=== PATIENT | male | born 1945 | race Caucasian/White ===

== ENCOUNTER → 2018-02-16 08:20 | Outpatient (CLI) | payer MEDICARE, SELFPAY ==
--- NOTE | 2018-02-16 08:27 | XR_ITS ---
XR shoulder LT min 2V HISTORY: ITS.REASON: LT SHOULDER PAIN ORDERING PHYSICIAN: Malissa Kilgore PATIENT AGE: 72 years Comparison: 04/10/2017 FINDINGS: Hypertrophic changes are present at the acromioclavicular joint with spurring along the undersurface of the distal clavicle and acromion which could impinge upon the supraspinatus tendon. A small focus of calcification is present just inferior to the lateral aspect of the acromium or superior than expected for calcific tendinitis and could be due to prior trauma. Mild osteoarthritic changes are present at the glenohumeral joint. No fracture or dislocation. No lytic or blastic change. Small area of sclerosis involves the lateral aspect of the scapula inferior to the glenoid and may be due to a bone island. IMPRESSION: Osteoarthritic change of the acromioclavicular and glenohumeral joint. Overall not significantly changed
== END ==
PROVIDERS: PCP Internal Medicine Adolescent Medicine; Visit Provider Nurse Practitioner Family
DX: M25.512 Pain in left shoulder (principal)
CPT/HCPCS: 73030

== ENCOUNTER → 2018-02-19 08:35 | Outpatient (POV) | payer MEDICARE, SELFPAY | PROVIDERS: Family Provider Nurse Practitioner Family; PCP Internal Medicine Adolescent Medicine; Visit Provider Dermatology | DX: Z00.00 Encounter for general adult medical examination without abnormal findings (principal) ==

== ENCOUNTER → 2018-03-20 07:47 | Outpatient (CLI) | payer MEDICARE, SELFPAY ==
--- NOTE | 2018-03-20 07:51 | MR_ITS ---
MR lumbar spine wo con Ordering Physician: Malissa Kilgore Patient Age: 72 years: Male HISTORY: ITS.REASON: LOW BACK PAIN Low back pain. Patient is sensitive to touch left side of mid back this extends anteriorly. Tingling sensation. TECHNIQUE: Sagittal STIR, T1, T2, axial T1 and T2. On 1.5T Siemens wide bore MRI. 3-D MR myelogram image set obtained & performed on MRI workstation. Additional sagittal thin section T2 weighted dataset obtained from this latter acquisition as well (---76 CPT) COMPARISON :No lumbar studies only a MRI T-spine 2016 available FINDINGS . The lumbar vertebral bodies are intact and the disc spaces are well-maintained overall except for slight narrowing at L5/S1. Overall the lumbar vertebral bodies and disc spaces appear younger than 72 but there is prominent posterior element/ facet hypertrophy particularly at L4/5 L5/S1 L5/S1. Mild disc space narrowing with mild foraminal disc bulge most evident to the right. Prominent facet hypertrophy on right more so than left, the latter features indents lateral thecal sac bilaterally, most notable on right. Together features yield bilateral recess and foraminal encroachment most evident to the right L4/5. Only minor disc bulge most evident towards foramen.. However there is very prominent, exuberant posterior element hypertrophy. Prominent facet hypertrophy but also generous ligamentum flavum hypertrophy.. This yields fairly pronounced central canal stenosis.; As well as Moderate recess & foraminal encroachment L3/4 disc intact with only mild disc slightly generous disc contour towards right foramen. More so than left. Mild facet hypertrophy and enlargement. Mild bilateral foraminal encroachment and narrowing. L2/3 we again see the mild foraminal disc bulge pattern with minimal facet hypertrophy . Mild foraminal encroachment and narrowing bilaterally. Unimpressive L1/2 disc intact T12/L1 disc intact T1/12 disc intact. Conus appears satisfactory. 3-D MR myelogram image set shows the tapering the spinal canal at L4/5 reflecting the spinal stenosis at this level.. The facet hypertrophy at L5/S1 also laterally narrows the spinal canal No additional findings are seen at the mid back region to account for the patient's tingling sensations described in history.. Only minimal facet arthropathy and these regions noted otherwise . IMPRESSION... Prominent facet hypertrophy lower L-spine is a primary feature yielding central canal spinal stenosis L4/5 & L5/S1: L4/5. Fairly pronounced canal stenosis mainly due to the prominent, exuberant posterior element hypertrophy. Both facet & ligament flavum hypertrophy markedly narrow the spinal canal;. Also yield moderate bilateral foraminal encroachment. L5/S1. Prominent facet hypertrophy narrows with lateral tapering/indentation of the thecal sac.. Moderate central canal stenosis & foraminal encroachment to the right. Mild foraminal disc bulging also seen at L4/5, L5/S1, as well as L2/3 & L3/4 to the right
== END ==
PROVIDERS: Family Provider Nurse Practitioner Family; PCP Internal Medicine Adolescent Medicine; Visit Provider Nurse Practitioner Family
DX: M54.5 Low back pain (principal)
CPT/HCPCS: 72148; 76376

== ENCOUNTER 2018-03-31 16:17 | Inpatient (IN) ==
--- NOTE | 2018-03-31 16:35 | Emergency Department Note ---
ED Disposition Clinical Impression: Acute ST elevation myocardial infarction (STEMI) of inferior wall, Cardiac arrest with ventricular fibrillation Disposition: Still a Patient Condition on Discharge: Serious Referrals: Senthil Clinton MD [Primary Care Provider] - - Critical Care Critical Care Time: Yes Attestation: On 03/31/18, the high probability of a clinically significant, sudden or life threatening deterioration of the following system(s) required my full and direct attention, intervention and personal management. The time I documented below is in addition to time spent performing reported procedures but includes the following listed in this critical care notation. Total Critical Care Time: 15 Vital system(s) involved:: Circulatory Failure My critical care processes included: Assessment & monitoring of V/S, Initial and Re-exams, Data Review/Interpretation, Coordinating Care, Medication Orders and management, Documentation Medical Decision Making - Jose Roberto Inquiry Pt receiving controlled substance: No - ECG Data Tracing #1 EKG interpreted by Chago Munoz MD: Rhythm: sinus Rate: 95 [place]: normal Ectopy: Premature atrial contractions Conduction: normal ST Segment Changes: Inferior ST elevation, reciprocal lateral depression T Wave Changes: Nonspecific Q Waves: none Consistent with acute inferior OH EKG #2 interpreted by Chago Munoz MD: Rhythm: sinus Persistent changes of acute inferior OH - Physician Consults Physician Consulted: Lazara Time: 16:20 Reason -: Cardiology Eval/Care Comment/Response: Responded to ED for code STEMI Additional Consult: Oz Time: 16:37 Reason -: Admission Comment/Response: Notified of admission to [facility] and need for admit orders. - ADELA Score for STEMI Age of patient: 65-74 years Hx of anginal chest pain: Present Hx of hypertension: Present Hx of diabetes: Present Systolic Blood Pressure: 100 mg Hg or more Heart Rate: Less than 100 beats/min [place] Class: I-No heart failure Weight of patient: 67 kg or more Anterior OH: No Left Bundle Branch Block: Absent Delay to treatment after attack: Less than 4 hrs Stemi Risk Score: 6 Medical Decision Narrative: STEMI was called immediately when EKG performed. Dr. Haile presented to the emergency department immediately. The patient had a ventricular fibrillation cardiac arrest within minutes of STEMI alert. Chest stump performed. Defibrillated 2. Resolution of spontaneous circulation. Repeat EKG shows persistent inferior ST elevation. 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 General Adult HPI - General Stated complaint: chest pain Time Seen by Provider: 03/31/18 16:19 - History of Present Illness HPI narrative: Complains of chest discomfort and left arm pain that began about 60-90 minutes ago. Denies shortness of breath. Denies nausea or diaphoresis. Took one nitroglycerin which did not seem to help. Currently rates his pain 4/10. Has a prior history of coronary artery disease with coronary bypass grafting and stent placement. [employer] is Dr. Colunga. - Related Data Allergies Allergy/AdvReac Type Severity Reaction Status Date / Time No Known Allergies Allergy Unverified 07/08/17 14:[address] [facility] History I have reviewed the patient's past medical history: Yes ROS Obtained: Yes Systems reviewed as appropriate & no additional complaints - Cardiovascular Cardiovascular: Reports chest pain, Denies diaphoresis - Respiratory Respiratory: No dyspnea - Gastrointestinal Gastrointestingal: Denies: nausea, vomiting Physical Exam - General General appearance: alert, in no apparent distress - Head Head exam: atraumatic, normocephalic, normal inspection - Eye Eye exam: Present: normal appearance, PERRL, EOMI - ENT ENT exam: Present: mucous membranes moist - Neck Neck exam: Present: normal inspection, full ROM, trachea midline. Absent: meningismus, lymphadenopathy - Chest Chest inspection: Present: normal inspection, symmetric chest wall rise. Absent: tenderness - Respiratory Respiratory exam: Present: normal lung sounds bilaterally. Absent: respiratory distress - Cardiovascular Cardiovascular exam: Present: regular rate, normal rhythm. Absent: JVD - Abdominal Exam Abdominal exam: Present: soft, normal bowel sounds. Absent: distention, tenderness, guarding - Extremities Exam Extremities exam: Present: normal inspection, full ROM, normal capillary refill. Absent: calf tenderness - Neurological Exam Neurological exam: Present: alert, oriented X3 - Psychiatric Psychiatric exam: Present: normal affect, normal mood - Skin Skin exam: Present: warm, dry, intact, normal color
[2018-03-31 17:32] LABS: Anion Gap 17.7 mEq/L (5-15); Basophils # 0.1 K/mm3 (0-0.2); Calcium 9.3 mg/dL (8.5-10.1); Monocytes # 0.8 K/mm3 (0.1-1.0); Neutrophils # 5.4 K/mm3 (1.8-7.8); Neutrophils % 37.5 % (37.0-80.0); Potassium 3.7 mmoL/L (3.5-5.1); Red Cell Distribution Width 13.4 % (11.5-17.5)
[2018-03-31 17:36] LABS: Basophils % 0.5 % (0.1-2.0); Eosinophils # 0.1 K/mm3 (0.0-0.4); Eosinophils % 0.9 % (0.1-12.0); Hematocrit 52.8 % (42.0-52.0); Lymphocytes # 7.9 K/mm3 (0.7-4.5); Lymphocytes % 55.2 K/mm3 (10-50); Mean Corpuscular HGB Conc 33.9 g/dL (31.8-35.4); Mean Corpuscular Volume 94.4 fl (80-94); Monocytes % 5.9 % (1.7-9.3); Platelet Count 248 K/mm3 (142-424); Red Blood Count 5.59 M/mm3 (4.60-6.20); White Blood Count 14.3 K/mm3 (4.8-10.8)
[2018-03-31 17:38] LABS: Hemoglobin 17.9 g/dL (14.1-18.0)
[2018-03-31 17:59] LABS: Eosinophils % 2 % (0-3); Lymphocytes % 15 % (10-50); Monocytes % 1 % (2-9); Neutrophils % 47 % (42-76); Total Cells Counted 100
[2018-03-31 18:00] LABS: RBC Morphology Normal
[2018-04-01 00:49] LABS: Anion Gap 18.5 mEq/L (5-15); Potassium 3.5 mmoL/L (3.5-5.1)
[2018-04-01 00:58] LABS: Calcium 8.4 mg/dL (8.5-10.1)
[2018-04-01 06:15] LABS: Basophils % 0.1 % (0.1-2.0); Eosinophils # 0.1 K/mm3 (0.0-0.4); Eosinophils % 0.5 % (0.1-12.0); Lymphocytes # 1.7 K/mm3 (0.7-4.5); Lymphocytes % 11.2 K/mm3 (10-50); Mean Corpuscular HGB Conc 33.2 g/dL (31.8-35.4); Mean Corpuscular Hemoglobin 31.8 pg (27.0-31.2); Mean Corpuscular Volume 95.8 fl (80-94); Mean Platelet Volume 7.9 fl (7.4-10.4); Monocytes # 0.9 K/mm3 (0.1-1.0); Monocytes % 5.8 % (1.7-9.3); Neutrophils # 12.6 K/mm3 (1.8-7.8); Neutrophils % 82.4 % (37.0-80.0); Platelet Count 236 K/mm3 (142-424); Red Blood Count 5.05 M/mm3 (4.60-6.20); Red Cell Distribution Width 13.6 % (11.5-17.5); White Blood Count 15.2 K/mm3 (4.8-10.8)
[2018-04-01 06:42] LABS: Hematocrit 48.5 % (42.0-52.0); Hemoglobin 16.1 g/dL (14.1-18.0)
[2018-04-01 07:10] LABS: Albumin Level 3.9 gm/dL (3.4-5.0); Albumin/Globulin Ratio 1.3 (1.1-1.8); Bilirubin,Total 0.9 mg/dL (0.2-1.0); Calcium 8.5 mg/dL (8.5-10.1); Globulin 3.1 gm/dl (1.3-3.2)
--- NOTE | 2018-04-01 07:27 | Pharmacy Consult Notes ---
[facility] Pharmacy VTE Monitoring - Patient Demographics Admission date: 03/31/18 Report Date: 04/01/18 Time: 07:27 Allergies/Adverse Reactions: Patient Allergies No Known Allergies Allergy (Verified 03/31/18 19:09) Height: 1.78 m Weight: 100.017 kg Patient Problems: Current Active Problems Acute ST elevation myocardial infarction (STEMI) of inferior wall (Acute) Cardiac arrest with ventricular fibrillation (Acute) - VTE Risk Labs: VTE Related Lab Results Hgb 16.1 g/dL (14.1-18.0) D 04/01/18 06:00 Hct 48.5 % (42.0-52.0) 04/01/18 06:00 Plt Count 236 K/mm3 (142-424) 04/01/18 06:00 BUN 7 mg/dL (7-18) 04/01/18 06:00 Creatinine 0.72 mg/dL (0.70-1.30) 04/01/18 06:00 Estimated Creat Clear 92 mL/min (0-300) 04/01/18 06:00 Was VTE Risk Assessment Performed: Yes VTE Score: 5 VTE Risk Level: Low Risk - Prophylaxis VTE Prophylaxis Ordered?: Yes Types of VTE Prophylaxis: TEDS Knee High, Pharmacological Location of Applied Device: Bilateral Lower Extremeties Pharmacologic Type: Other (BRILINTA) - VTE Diagnosis Confirmed Treatment or plan recommended: Continue Current Treatment
--- NOTE | 2018-04-01 08:24 | History & Physical Report ---
*Admission Date: 03/31/18 *Chief complaint: STEMI with ventricular fibrillation and cardiac arrest *History of present illness: 72-year-old white male with history of coronary disease, status post CABG greater than 10 years ago four-vessel, was mowing his yard yesterday and had a feeling of impending doom, left arm pain, chest pressure and diaphoresis. Reported to the emergency department. During the process of workup after labs were done the patient had a cardiac arrest with ventricular fibrillation. He was quickly defibrillated and taken to cardiac catheterization after initial laboratory studies showed elevated troponins with EKG showing ST changes consistent with STEMI. He was subjected to left heart cath with successful deployment of 4 stents. Official report pending, and transferred to the hip down unit. Overnight he initially did well but around 130 this morning had another episode of ventricular fibrillation which obviously required defibrillation. Cardiology was consulted by phone and recommended the initiation of oral amiodarone therapy which was given. Currently patient feels well except for some chest pain from cardiac compressions and defibrillation paddles. [facility] History I have reviewed the patient's past medical history: Yes Medical History: Reports:: Arrhythmia, Cancer (Melanoma - left soliz), Coronary Artery Disease, Deep Vein Thrombosis (2000 - leg), Diabetes Mellitus Type 2, Hyperlipidemia, Hypertension, Myocardial Infarction Denies:: Diabetes Mellitus Type 1, Internal Pacemaker Other Medical History: Reports: Arthritis (OA), Cataracts, Sinus Problems (Seasonal Allergies) Laterality Cases: Left: Total Knee Replacement, Right: Total Hip Replacement Other Surgeries: Yes: CABG, Cardiac Catheterization, Cardiac Surgery, Coronary Stent, Open Heart Surgery. No: Pacemaker Amputation: No Fractures: No - *Social History Educational Level: Completed GED/General Educational Development Alcohol Intake: current Alcohol Intake Frequency:: other Occupational Status: retired Housing: house Household Members: spouse - Psychiatric History Expresses thoughts of harming self/others: None Suicide Plan Description: No Plan Review of Systems - Review of Systems Review of systems:: pertinent systems reviewed and negative unless documented below - Constitutional Denies anorexia, Denies body ache(s), Denies chills - Eyes Denies blind spots, Denies blurry vision - ENT Denies abnormal hearing, Denies bleeding gums - *Cardiovascular Reports chest pain, Reports chest pain at rest, Reports chest pain with activity, Reports excessive sweating, Reports shortness of breath when lying down, Denies irregular heart rhythm, Denies leg swelling - *Respiratory Denies change in phlegm color, Denies chest congestion - *Gastrointestinal Denies abdominal pain - *Genitourinary Denies difficulty urinating - *Musculoskeletal Denies abnormal walking Meds Home Medications Medication Instructions Recorded Confirmed Type Amlodipine Besylate [Norvasc 10mg 10 mg PO DAILY 03/31/18 03/31/18 History tablet] Aspirin [Low Dose Aspirin EC] 81 mg PO DAILY 03/31/18 03/31/18 History Atorvastatin Calcium [Atorvastatin 40 mg PO HS 03/31/18 03/31/18 History 40mg Tab] Bisoprolol Fumarate [Bisoprolol 5 mg PO DAILY 03/31/18 03/31/18 History 5mg Tablet] Empagliflozin [Jardiance] 10 mg PO DAILY 03/31/18 03/31/18 History Glimepiride 4 mg PO DAILY 03/31/18 03/31/18 History Losartan Potassium 100 mg PO DAILY 03/31/18 03/31/18 History Metformin HCl 1,000 mg PO BID 03/31/18 03/31/18 History Omeprazole [Omeprazole 20mg 20 mg PO DAILY 03/31/18 03/31/18 History Capsule] Allergies Allergy/AdvReac Type Severity Reaction Status Date / Time No Known Allergies Allergy Verified 03/31/18 19:09 Exam Vital signs and Labs for Last 24 Hours: Temp Pulse Resp BP Pulse Ox 98.5 F 73 15 135/87 94 L 04/01/18 07:43 04/01/18 08:00 04/01/18 08:00 04/01/18 07:30 04/01/18 08:00 Laboratory Results - last 24 hr 03/31/18 16:25: WBC 14.3 H, RBC 5.59, Hgb 17.9, Hct 52.8 H, MCV 94.4 H, MCH 32.0 H, MCHC 33.9, RDW 13.4, Plt Count 248, MPV 9.0, Neut % (Auto) 37.5, Lymph % (Auto) 55.2 H, Eagle % (Auto) 5.9, Eos % (Auto) 0.9, Baso % (Auto) 0.5, Neut # (Auto) 5.4, Lymph # (Auto) 7.9 H, Eagle # (Auto) 0.8, Eos # (Auto) 0.1, Baso # (Auto) 0.1, Total Counted 100, Neutrophils % (Manual) 47, Lymphocytes % (Manual) 15, Atypical Lymphs % 35.0, Monocytes % (Manual) 1 L, Eosinophils % (Manual) 2, Platelet Estimate Normal, RBC Morphology Normal 03/31/18 16:25: Sodium 144, Potassium 3.7, Chloride 106, Carbon Dioxide 24, Anion Gap 17.7 H, BUN 9, Creatinine 1.06, Estimated Creat Clear 78, Estimated GFR 68, Est GFR ( Amer) 83, Glucose 266 H, Calcium 9.3, Troponin I 0.06 03/31/18 16:40: Activated Clotting Time 309 H* 03/31/18 17:35: Activated Clotting Time > 400 H* D 03/31/18 20:08: POC Glucose 202 H 04/01/18 00:04: POC Glucose 194 H 04/01/18 00:20: Magnesium 1.9 04/01/18 00:20: Sodium 144, Potassium 3.5, Chloride 108 H, Carbon Dioxide 21, Anion Gap 18.5 H, BUN 7, Creatinine 0.87, Estimated Creat Clear 94, Estimated GFR 86, Est GFR ( Amer) 104 D, Glucose 222 H, Calcium 8.4 L 04/01/18 06:00: WBC 15.2 H, RBC 5.05, Hgb 16.1 D, Hct 48.5, MCV 95.8 H, MCH 31.8 H, MCHC 33.2, RDW 13.6, Plt Count 236, MPV 7.9, Neut % (Auto) 82.4 H, Lymph % (Auto) 11.2, Eagle % (Auto) 5.8, Eos % (Auto) 0.5, Baso % (Auto) 0.1, Neut # (Auto) 12.6 H, Lymph # (Auto) 1.7, Eagle # (Auto) 0.9, Eos # (Auto) 0.1, Baso # (Auto) 0.0 04/01/18 06:00: Sodium 144, Potassium 4.0, Chloride 107, Carbon Dioxide 22, Anion Gap 19.0 H, BUN 7, Creatinine 0.72, Estimated Creat Clear 92, Estimated GFR 107, Est GFR ( Amer) 129 D, Glucose 227 H, Calcium 8.5, Total Bilirubin 0.9, AST 120 H, ALT 50, Alkaline Phosphatase 65, Total Protein 7.0, Albumin 3.9, Globulin 3.1, Albumin/Globulin Ratio 1.3 04/01/18 06:06: POC Glucose 303 H* I & O for Last 24 hours: Intake & Output 03/29/18 03/30/18 03/31/18 04/01/18 11:59 11:59 11:59 11:59 Intake Total 1240 / 1240 Output Total 2800 / 2800 Balance -1560 / -1560 Weight 220 lb 8 oz Narrative: Patient is awake. Alert. Oropharynx clear. No JVD. Heart rate regular. Lungs are clear, abdomen soft and nontender. No clubbing, cyanosis or edema. No cranial nerve deficits. Able to move all extremities well. Assessment and Plan (1) Coronary atherosclerosis of artery bypass graft Current visit: Yes Status: Acute Category: Medical Code(s): I25.810 - Atherosclerosis of coronary artery bypass graft(s) without angina pectoris Significant disease. Continue cardiology consultation. Patient's EF reportedly fairly well-preserved after heart cath. (2) Acute ST elevation myocardial infarction (STEMI) of inferior wall Current visit: Yes Status: Acute Category: Medical Code(s): I21.19 - ST elevation (STEMI) myocardial infarction involving other coronary artery of inferior wall (3) Cardiac arrest with ventricular fibrillation Current visit: Yes Status: Acute Category: Medical Code(s): I46.9 - Cardiac arrest, cause unspecified; I49.01 - Ventricular fibrillation P.o. loading of amiodarone last night. Continue intensive care monitoring.
[2018-04-01 09:15] LABS: Lymphocytes % 8 % (10-50); Monocytes % 3 % (2-9); Neutrophils % 85 % (42-76); Total Cells Counted 100
[2018-04-01 09:16] LABS: RBC Morphology Normal
--- NOTE | 2018-04-01 09:30 | Consult Report ---
History of Present Illness Consult date: 03/31/18 Requesting physician: Senthil Clinton Consult reason: chest pain Chief complaint: chest pain/pressure Additional Medical History:: 1. Diabetes mellitus, type II, treated for 20 years 2. Hypertension 3. Hyperlipidemia 4. History of one knee and 2 hip replacements 5. History of melanoma of the soliz status post treatment with surgery only. 6. History of inguinal hernia repair 7. Coronary artery disease A. History of MO, 2004 B. History of 3 vessel CABG (SVG to RCA, SVG to OM1 and OM2), 2004 C. History of RAMESH to LAD, November/2016, Dr. [place] D. STEMI, inferiorly, 03/31/18 with urgent stenting of the vein graft to RCA. Subsequent closure later that evening. E. Recurrent ventricular fibrillation requiring multiple cardioversions, 03/2018 8. Family history of coronary artery disease History of present illness: 72-year-old white male with known coronary artery disease, diabetes mellitus and hypertension was brought to the emergency department after 1 hour of chest discomfort described as a pressure/tightness sensation and the generally not feeling well while riding lawnmower cutting grass. Patient called his when symptoms would not vu, and was transported to the hospital for further evaluation. Patient was quickly diagnosed with an acute ST elevation MO with the STEMI team called promptly. Patient did have V. fib and subsequent cardiac arrest requiring defibrillation while in the ER. He was taken to the cardiac Audio Visual Technician with subsequent stenting of a vein graft but due to "slow flow" down the graft, patient continued to have thrombus form in the vein graft. Patient did have recurrent ventricular fibrillation/torsades overnight that required cardioversion. Patient is now on amiodarone p.o. and rhythm is stable this morning. He relates some chest soreness but overall feels better than yesterday. [facility] History Medical History: Reports:: Arrhythmia, Cancer (Melanoma - left soliz), Coronary Artery Disease, Deep Vein Thrombosis (2000 - leg), Diabetes Mellitus Type 2, Hyperlipidemia, Hypertension, Myocardial Infarction Denies:: Diabetes Mellitus Type 1, Internal Pacemaker Other Medical History: Reports: Arthritis (OA), Cataracts, Sinus Problems (Seasonal Allergies) Laterality Cases: Left: Total Knee Replacement, Right: Total Hip Replacement Other Surgeries: Yes: CABG, Cardiac Catheterization, Cardiac Surgery, Coronary Stent, Open Heart Surgery. No: Pacemaker Amputation: No Fractures: No - *Social History Educational Level: Completed GED/General Educational Development Alcohol Intake: current Alcohol Intake Frequency:: other Occupational Status: retired Housing: house Household Members: spouse - Psychiatric History Expresses thoughts of harming self/others: None Suicide Plan Description: No Plan Meds Home Medications Medication Instructions Recorded Confirmed Type Amlodipine Besylate [Norvasc 10mg 10 mg PO DAILY 03/31/18 03/31/18 History tablet] Aspirin [Low Dose Aspirin EC] 81 mg PO DAILY 03/31/18 03/31/18 History Atorvastatin Calcium [Atorvastatin 40 mg PO HS 03/31/18 03/31/18 History 40mg Tab] Bisoprolol Fumarate [Bisoprolol 5 mg PO DAILY 03/31/18 03/31/18 History 5mg Tablet] Empagliflozin [Jardiance] 10 mg PO DAILY 03/31/18 03/31/18 History Glimepiride 4 mg PO DAILY 03/31/18 03/31/18 History Losartan Potassium 100 mg PO DAILY 03/31/18 03/31/18 History Metformin HCl 1,000 mg PO BID 03/31/18 03/31/18 History Omeprazole [Omeprazole 20mg 20 mg PO DAILY 03/31/18 03/31/18 History Capsule] Allergies Allergy/AdvReac Type Severity Reaction Status Date / Time No Known Allergies Allergy Verified 03/31/18 19:09 Review of Systems - *Cardiovascular Reports chest pain, Reports shortness of breath, Reports shortness of breath with activity - *Respiratory Reports shortness of breath with activity - *Gastrointestinal Denies abdominal pain, Denies heartburn, Denies loose stools - *Genitourinary Denies blood in urine - *Musculoskeletal Reports joint pain - *Neurologic Denies abnormal walking, Denies abnormal hearing Exam Vital signs and Labs for Last 24 Hours: Temp Pulse Resp BP Pulse Ox 98.5 F 84 20 108/60 93 L 04/01/18 07:43 04/01/18 09:00 04/01/18 09:00 04/01/18 09:00 04/01/18 09:00 Laboratory Results - last 24 hr 03/31/18 16:25: WBC 14.3 H, RBC 5.59, Hgb 17.9, Hct 52.8 H, MCV 94.4 H, MCH 32.0 H, MCHC 33.9, RDW 13.4, Plt Count 248, MPV 9.0, Neut % (Auto) 37.5, Lymph % (Auto) 55.2 H, [place] % (Auto) 5.9, Eos % (Auto) 0.9, Baso % (Auto) 0.5, Neut # (Auto) 5.4, Lymph # (Auto) 7.9 H, [place] # (Auto) 0.8, Eos # (Auto) 0.1, Baso # (Auto) 0.1, Total Counted 100, Neutrophils % (Manual) 47, Lymphocytes % (Manual) 15, Atypical Lymphs % 35.0, Monocytes % (Manual) 1 L, Eosinophils % (Manual) 2, Platelet Estimate Normal, RBC Morphology Normal 03/31/18 16:25: Sodium 144, Potassium 3.7, Chloride 106, Carbon Dioxide 24, Anion Gap 17.7 H, BUN 9, Creatinine 1.06, Estimated Creat Clear 78, Estimated GFR 68, Est GFR ( Amer) 83, Glucose 266 H, Calcium 9.3, Troponin I 0.06 03/31/18 16:40: Activated Clotting Time 309 H* 03/31/18 17:35: Activated Clotting Time > 400 H* D 03/31/18 20:08: POC Glucose 202 H 04/01/18 00:04: POC Glucose 194 H 04/01/18 00:20: Magnesium 1.9 04/01/18 00:20: Sodium 144, Potassium 3.5, Chloride 108 H, Carbon Dioxide 21, Anion Gap 18.5 H, BUN 7, Creatinine 0.87, Estimated Creat Clear 94, Estimated GFR 86, Est GFR ( Amer) 104 D, Glucose 222 H, Calcium 8.4 L 04/01/18 06:00: WBC 15.2 H, RBC 5.05, Hgb 16.1 D, Hct 48.5, MCV 95.8 H, MCH 31.8 H, MCHC 33.2, RDW 13.6, Plt Count 236, MPV 7.9, Neut % (Auto) 82.4 H, Lymph % (Auto) 11.2, [place] % (Auto) 5.8, Eos % (Auto) 0.5, Baso % (Auto) 0.1, Neut # (Auto) 12.6 H, Lymph # (Auto) 1.7, [place] # (Auto) 0.9, Eos # (Auto) 0.1, Baso # (Auto) 0.0, Total Counted 100, Neutrophils % (Manual) 85 H, Band Neutrophils % 3.0, Lymphocytes % (Manual) 8 L, Atypical Lymphs % 1.0, Monocytes % (Manual) 3, Platelet Estimate Normal, RBC Morphology Normal 04/01/18 06:00: Sodium 144, Potassium 4.0, Chloride 107, Carbon Dioxide 22, Anion Gap 19.0 H, BUN 7, Creatinine 0.72, Estimated Creat Clear 92, Estimated GFR 107, Est GFR ( Amer) 129 D, Glucose 227 H, Calcium 8.5, Total Bilirubin 0.9, AST 120 H, ALT 50, Alkaline Phosphatase 65, Total Protein 7.0, Albumin 3.9, Globulin 3.1, Albumin/Globulin Ratio 1.3 04/01/18 06:06: POC Glucose 303 H* I & O for Last 24 hours: Intake & Output 03/29/18 03/30/18 03/31/18 04/01/18 11:59 11:59 11:59 11:59 Intake Total 1240 / 1240 Output Total 2800 / 2800 Balance -1560 / -1560 Weight 220 lb 8 oz - *Routine Neck Exam Present: supple. Absent: JVD, carotid bruit - *Routine Respiratory Exam Present: CTA bilaterally. Absent: accessory muscle use, rales, rhonchi, wheezes - *Routine Cardiovascular Exam Present: RRR. Absent: murmur, gallop, rubs - *Routine Abdominal Exam Present: soft. Absent: tenderness, distended, guarding - *Routine Extremities Exam Absent: edema, calf tenderness - *Routine Skin Exam Present: warm. Absent: cyanosis - *Routine Neurological Exam Present: alert, oriented X3, moving all extremities Assessment and Plan (1) Coronary atherosclerosis of artery bypass graft Current visit: Yes Status: Acute Category: Medical Code(s): I25.810 - Atherosclerosis of coronary artery bypass graft(s) without angina pectoris (2) Acute ST elevation myocardial infarction (STEMI) of inferior wall Current visit: Yes Status: Acute Category: Medical Code(s): I21.19 - ST elevation (STEMI) myocardial infarction involving other coronary artery of inferior wall (3) Cardiac arrest with ventricular fibrillation Current visit: Yes Status: Acute Category: Medical Code(s): I46.9 - Cardiac arrest, cause unspecified; I49.01 - Ventricular fibrillation (4) Diabetes mellitus Current visit: Yes Status: Acute Category: Medical Code(s): E11.9 - Type 2 diabetes mellitus without complications (5) Hypertension Current visit: Yes Status: Acute Category: Medical Code(s): I10 - Essential (primary) hypertension (6) Hyperlipidemia associated with type 2 diabetes mellitus Current visit: Yes Status: Acute Category: Medical Code(s): E11.69 - Type 2 diabetes mellitus with other specified complication; E78.5 - Hyperlipidemia, unspecified - Assessment and plan all Dx Assessment and Plan for all problems:: 1. Continue loading patient with amiodarone 400 mg twice daily for 1 week and then reduce to 200 mg twice daily. 2. Continue DAPT 3. Will check echo on 04/02/2018 and continue to monitor with consideration for AICD.
--- NOTE | 2018-04-01 12:01 | Progress Note ---
Subjective Date: 04/01/18 Time: 11:00 Principal diagnosis: STEMI Interval history: 72-year-old white male in bed in no acute distress. States he is feeling better. Denies any chest pain or shortness of breath. Some chest soreness related. Dr. Haile discussed the results of the cardiac cath and the resultant closure of the saphenous vein graft resulting in the ventricular fibrillation last evening and subsequent need for amiodarone along with consideration of ICD in the future. Questions from the patient, his and his son were answered. Exam Vital signs and Labs for Last 24 Hours: Temp Pulse Resp BP Pulse Ox 98.5 F 74 17 128/72 94 L 04/01/18 07:43 04/01/18 11:00 04/01/18 11:00 04/01/18 11:00 04/01/18 11:00 Laboratory Results - last 24 hr 03/31/18 16:25: WBC 14.3 H, RBC 5.59, Hgb 17.9, Hct 52.8 H, MCV 94.4 H, MCH 32.0 H, MCHC 33.9, RDW 13.4, Plt Count 248, MPV 9.0, Neut % (Auto) 37.5, Lymph % (Auto) 55.2 H, [place] % (Auto) 5.9, Eos % (Auto) 0.9, Baso % (Auto) 0.5, Neut # (Auto) 5.4, Lymph # (Auto) 7.9 H, [place] # (Auto) 0.8, Eos # (Auto) 0.1, Baso # (Auto) 0.1, Total Counted 100, Neutrophils % (Manual) 47, Lymphocytes % (Manual) 15, Atypical Lymphs % 35.0, Monocytes % (Manual) 1 L, Eosinophils % (Manual) 2, Platelet Estimate Normal, RBC Morphology Normal 03/31/18 16:25: Sodium 144, Potassium 3.7, Chloride 106, Carbon Dioxide 24, Anion Gap 17.7 H, BUN 9, Creatinine 1.06, Estimated Creat Clear 78, Estimated GFR 68, Est GFR ( Amer) 83, Glucose 266 H, Calcium 9.3, Troponin I 0.06 03/31/18 16:40: Activated Clotting Time 309 H* 03/31/18 17:35: Activated Clotting Time > 400 H* D 03/31/18 20:08: POC Glucose 202 H 04/01/18 00:04: POC Glucose 194 H 04/01/18 00:20: Magnesium 1.9 04/01/18 00:20: Sodium 144, Potassium 3.5, Chloride 108 H, Carbon Dioxide 21, Anion Gap 18.5 H, BUN 7, Creatinine 0.87, Estimated Creat Clear 94, Estimated GFR 86, Est GFR ( Amer) 104 D, Glucose 222 H, Calcium 8.4 L 04/01/18 06:00: WBC 15.2 H, RBC 5.05, Hgb 16.1 D, Hct 48.5, MCV 95.8 H, MCH 31.8 H, MCHC 33.2, RDW 13.6, Plt Count 236, MPV 7.9, Neut % (Auto) 82.4 H, Lymph % (Auto) 11.2, [place] % (Auto) 5.8, Eos % (Auto) 0.5, Baso % (Auto) 0.1, Neut # (Auto) 12.6 H, Lymph # (Auto) 1.7, [place] # (Auto) 0.9, Eos # (Auto) 0.1, Baso # (Auto) 0.0, Total Counted 100, Neutrophils % (Manual) 85 H, Band Neutrophils % 3.0, Lymphocytes % (Manual) 8 L, Atypical Lymphs % 1.0, Monocytes % (Manual) 3, Platelet Estimate Normal, RBC Morphology Normal 04/01/18 06:00: Sodium 144, Potassium 4.0, Chloride 107, Carbon Dioxide 22, Anion Gap 19.0 H, BUN 7, Creatinine 0.72, Estimated Creat Clear 92, Estimated GFR 107, Est GFR ( Amer) 129 D, Glucose 227 H, Calcium 8.5, Total Bilirubin 0.9, AST 120 H, ALT 50, Alkaline Phosphatase 65, Total Protein 7.0, Albumin 3.9, Globulin 3.1, Albumin/Globulin Ratio 1.3 04/01/18 06:06: POC Glucose 303 H* 04/01/18 10:47: POC Glucose 176 H I & O for Last 24 hours: Intake & Output 03/29/18 03/30/18 03/31/18 04/01/18 11:59 11:59 11:59 11:59 Intake Total 1240 / 1240 Output Total 2800 / 2800 Balance -1560 / -1560 Weight 220 lb 8 oz - *Routine Respiratory Exam Present: CTA bilaterally. Absent: accessory muscle use, rales, rhonchi, wheezes - *Routine Cardiovascular Exam Present: RRR. Absent: murmur, gallop, rubs - *Routine Extremities Exam Absent: edema, calf tenderness Progress Note: A&P (1) Coronary atherosclerosis of artery bypass graft Status: Acute Current Visit: Yes (2) Acute ST elevation myocardial infarction (STEMI) of inferior wall Status: Acute Current Visit: Yes (3) Cardiac arrest with ventricular fibrillation Status: Acute Current Visit: Yes (4) Diabetes mellitus Status: Acute Current Visit: Yes (5) Hypertension Status: Acute Current Visit: Yes (6) Hyperlipidemia associated with type 2 diabetes mellitus Status: Acute Current Visit: Yes Assessment and Plan for All Diagnoses:: Continue current medical therapy. Plan to perform an echocardiogram tomorrow to evaluate left ventricular ejection fraction. Would like to keep the patient here until Friday morning before considering discharge home. Patient will need cardiac rehab and a full 6 weeks of recovery.
--- NOTE | 2018-04-02 07:52 | Progress Note ---
Subjective Date: 04/02/18 Time: 07:49 Principal diagnosis: STEMI Interval history: 72-year-old white male in bed no acute distress. Telemetry shows no evidence of ventricular fibrillation overnight. Patient relates some chest soreness with deep breathing. Exam Vital signs and Labs for Last 24 Hours: Temp Pulse Resp BP Pulse Ox 97.9 F 61 15 150/77 97 04/02/18 06:22 04/02/18 07:00 04/02/18 07:00 04/02/18 07:00 04/02/18 07:00 Laboratory Results - last 24 hr 04/01/18 06:00: Total Counted 100, Neutrophils % (Manual) 85 H, Band Neutrophils % 3.0, Lymphocytes % (Manual) 8 L, Atypical Lymphs % 1.0, Monocytes % (Manual) 3, Platelet Estimate Normal, RBC Morphology Normal 04/01/18 10:47: POC Glucose 176 H 04/01/18 16:49: POC Glucose 164 H 04/01/18 20:38: POC Glucose 298 H 04/02/18 06:09: POC Glucose 163 H I & O for Last 24 hours: Intake & Output 03/30/18 03/31/18 04/01/18 04/02/18 11:59 11:59 11:59 11:59 Intake Total 1240 / 1240 2156 / 2156 Output Total 2800 / 2800 1550 / 1550 Balance -1560 / -1560 606 / 606 Weight 220 lb 8 oz 217 lb 8 oz - *Routine Neck Exam Present: supple. Absent: JVD, carotid bruit - *Routine Respiratory Exam Present: CTA bilaterally. Absent: accessory muscle use, rales, rhonchi, wheezes - *Routine Cardiovascular Exam Present: RRR. Absent: murmur, gallop, rubs - *Routine Extremities Exam Absent: edema, calf tenderness Progress Note: A&P (1) Coronary atherosclerosis of artery bypass graft Status: Acute Current Visit: Yes (2) Acute ST elevation myocardial infarction (STEMI) of inferior wall Status: Acute Current Visit: Yes (3) Cardiac arrest with ventricular fibrillation Status: Acute Current Visit: Yes (4) Diabetes mellitus Status: Acute Current Visit: Yes (5) Hypertension Status: Acute Current Visit: Yes (6) Hyperlipidemia associated with type 2 diabetes mellitus Status: Acute Current Visit: Yes Assessment and Plan for All Diagnoses:: 1. Obtain an echocardiogram today to evaluate left ventricular size and function along with evaluation of pericardial sac for pericardial effusion. No appreciable rub noted on exam. 2. We will try to increase ARB due to elevated blood pressure today. 3. Anticipate discharge home tomorrow.
--- NOTE | 2018-04-02 08:19 | Progress Note ---
Internal Medicine - PN: Subj *Date: 04/02/18 *Time: 07:45 Interval history: Patient has not had any further chest pain. Telemetry reviewed and no further V. Fib though the night. Alert and oriented x3. Rate and rhythm regular, no murmur. Lung sounds clear and equal. No edema. No JVD. Abdomen soft and nontender. Exam Vital signs and Labs for Last 24 Hours: Temp Pulse Resp BP Pulse Ox 99.1 F 70 20 140/81 94 L 04/02/18 08:00 04/02/18 08:00 04/02/18 08:00 04/02/18 08:00 04/02/18 08:00 Laboratory Results - last 24 hr 04/01/18 06:00: Total Counted 100, Neutrophils % (Manual) 85 H, Band Neutrophils % 3.0, Lymphocytes % (Manual) 8 L, Atypical Lymphs % 1.0, Monocytes % (Manual) 3, Platelet Estimate Normal, RBC Morphology Normal 04/01/18 10:47: POC Glucose 176 H 04/01/18 16:49: POC Glucose 164 H 04/01/18 20:38: POC Glucose 298 H 04/02/18 06:09: POC Glucose 163 H I & O for Last 24 hours: Intake & Output 03/30/18 03/31/18 04/01/18 04/02/18 11:59 11:59 11:59 11:59 Intake Total 1240 / 1240 2396 / 2396 Output Total 2800 / 2800 1550 / 1550 Balance -1560 / -1560 846 / 846 Weight 220 lb 8 oz 217 lb 8 oz Assessment and Plan (1) Coronary atherosclerosis of artery bypass graft Current visit: Yes Status: Acute Category: Medical Code(s): I25.810 - Atherosclerosis of coronary artery bypass graft(s) without angina pectoris (2) Acute ST elevation myocardial infarction (STEMI) of inferior wall Current visit: Yes Status: Acute Category: Medical Code(s): I21.19 - ST elevation (STEMI) myocardial infarction involving other coronary artery of inferior wall (3) Cardiac arrest with ventricular fibrillation Current visit: Yes Status: Acute Category: Medical Code(s): I46.9 - Cardiac arrest, cause unspecified; I49.01 - Ventricular fibrillation (4) Diabetes mellitus Current visit: Yes Status: Acute Category: Medical Code(s): E11.9 - Type 2 diabetes mellitus without complications (5) Hypertension Current visit: Yes Status: Acute Category: Medical Code(s): I10 - Essential (primary) hypertension (6) Hyperlipidemia associated with type 2 diabetes mellitus Current visit: Yes Status: Acute Category: Medical Code(s): E11.69 - Type 2 diabetes mellitus with other specified complication; E78.5 - Hyperlipidemia, unspecified - Assessment and plan all Dx Assessment and Plan for all problems:: He did well through the night. No changes today. Will continue to monitor overnight. If no further episodes of V. Fib will likely d/c in the am
--- NOTE | 2018-04-02 16:18 | Cardiology Report ---
PROCEDURE: 2-D M-mode and color Doppler study INDICATIONS FOR THE TEST: Chest pain+ COPD Heart Murmur Tobacco Smokingex Palpitations Fatigue+ Syncope Edema Hypertension+Diabetes Mellitus+ Rheumatic Fever SOB HOPKINS Obesity+Hyperlipidemia+ Family History HD+ Additional History pain lt arm, STEMI, hx of CABG, CAD PATIENT INFORMATION HEIGHT: 70 WEIGHT: 217 GENDER: Male B/P: 140/81 2-D/M-MODE INTERPRETATION: 2-D MEASUREMENTS OBSERVED VALUES IN CMS Right Ventricular Dimension (RVDd) 2.7 Interventricular Septum (Thickness)(IVsd) 1.1 Left Ventricular Internal Dimensions(LVIDd) 3.2 Left Ventricular Posterior Wall (Thickness)(LVPWd) 1.1 Aortic Root 3.1 Aortic Cusp Separation 1.8 Left Atrial Dimensions (LAD) 3.3 2D 1. Technically difficult study because of the patient's factor and poor acoustic windows, repeat study with Definity contrast is recommended. 2. Left atrium is qualitatively mildly enlarged, left ventricle is normal size, mild concentric left ventricular hypertrophy, visually estimated ejection fraction approximately 40%, there is marked hypokinesis involving the inferior, inferobasal and posterobasal wall. Endocardial surfaces are poorly visualized. 3. The aortic valve is minimally thickened and fibrosed. Leaflet continue to display mobility. 4. The mitral valve has mitral calcification, leaflets are minimally thickened. 5. The tricuspid valve is grossly normal. 6. The pulmonic valve is poorly visualized. 7. No significant pericardial effusion noted. DOPPLER INTERROGATION: Doppler interrogation of the aortic, mitral and tricuspid valvular presence of mild mitral and tricuspid regurgitation, tricuspid regurgitation jet velocity is insufficient for calculation of the right ventricular systolic pressure, grade 1 diastolic dysfunction seen with tissue Doppler evidence of raised left atrial pressure. CONCLUSION: 1. Technically difficult study because of the patient's factor and poor acoustic windows, repeat study with Definity contrast is recommended. 2. Mildly enlarged left atrium, normal left ventricular size, mild concentric left ventricular hypertrophy, visually estimated ejection fraction 40% with segmental wall motion abnormality described above, a repeat study with Definity contrast is recommended, grade 1 diastolic dysfunction seen with tissue Doppler evidence of raised left atrial pressure. 3. Mild mitral and tricuspid regurgitation 4. No significant pericardial effusion noted.
[2018-04-03 05:34] LABS: Basophils % 0.2 % (0.1-2.0); Eosinophils # 0.1 K/mm3 (0.0-0.4); Eosinophils % 0.9 % (0.1-12.0); Hematocrit 46.9 % (42.0-52.0); Hemoglobin 15.7 g/dL (14.1-18.0); Lymphocytes # 3.4 K/mm3 (0.7-4.5); Lymphocytes % 24.2 K/mm3 (10-50); Mean Corpuscular HGB Conc 33.5 g/dL (31.8-35.4); Mean Corpuscular Volume 95.4 fl (80-94); Mean Platelet Volume 8.2 fl (7.4-10.4); Monocytes % 6.9 % (1.7-9.3); Neutrophils # 9.7 K/mm3 (1.8-7.8); Neutrophils % 67.9 % (37.0-80.0); Platelet Count 180 K/mm3 (142-424); Red Blood Count 4.92 M/mm3 (4.60-6.20); Red Cell Distribution Width 13.5 % (11.5-17.5); White Blood Count 14.2 K/mm3 (4.8-10.8)
[2018-04-03 05:43] LABS: Albumin/Globulin Ratio 0.8 (1.1-1.8); Anion Gap 15.4 mEq/L (5-15); Bilirubin,Total 1.8 mg/dL (0.2-1.0); Calcium 8.4 mg/dL (8.5-10.1); Globulin 3.7 gm/dl (1.3-3.2); Potassium 3.4 mmoL/L (3.5-5.1); Total Protein,Serum 6.7 gm/dL (6.4-8.2)
--- NOTE | 2018-04-03 08:36 | Discharge Summary ---
General - General Admission date:: 03/31/18 Discharge date: 04/03/18 HPI HPI: 72-year-old white male with history of coronary disease, status post CABG greater than 10 years ago four-vessel, was mowing his yard yesterday and had a feeling of impending doom, left arm pain, chest pressure and diaphoresis. Reported to the emergency department. During the process of workup after labs were done the patient had a cardiac arrest with ventricular fibrillation. He was quickly defibrillated and taken to cardiac catheterization after initial laboratory studies showed elevated troponins with EKG showing ST changes consistent with STEMI. He was subjected to left heart cath with successful deployment of 4 stents. Official report pending, and transferred to the hip down unit. Overnight he initially did well but around 130 this morning had another episode of ventricular fibrillation which obviously required defibrillation. Cardiology was consulted by phone and recommended the initiation of oral amiodarone therapy which was given. Currently patient feels well except for some chest pain from cardiac compressions and defibrillation paddles. Objective Vital signs: Temp Pulse Resp BP Pulse Ox 98.0 F 50 L 15 116/60 97 04/02/18 20:00 04/03/18 07:55 04/02/18 20:00 04/03/18 06:16 04/03/18 07:55 Results Labs on day of discharge: Labs from last 24 hours 04/03/18 04/03/18 04/03/18 05:22 05:20 05:20 WBC RBC Hgb Hct MCV MCH MCHC RDW Plt Count MPV Neut % (Auto) Lymph % (Auto) [place] % (Auto) Eos % (Auto) Baso % (Auto) Neut # (Auto) Lymph # (Auto) [place] # (Auto) Eos # (Auto) Baso # (Auto) Sodium 140 Potassium 3.4 L Chloride 106 Carbon Dioxide 22 Anion Gap 15.4 H BUN 12 D Creatinine 0.79 Estimated Creat Clear 92 Estimated GFR 96 Est GFR ( Amer) 116 Glucose 137 H POC Glucose 126 H Calcium 8.4 L Magnesium 2.0 Total Bilirubin 1.8 H AST 88 H D ALT 32 D Alkaline Phosphatase 54 Total Protein 6.7 Albumin 3.0 L Globulin 3.7 H Albumin/Globulin Ratio 0.8 L 04/03/18 04/02/18 04/02/18 05:20 20:07 16:13 WBC 14.2 H RBC 4.92 Hgb 15.7 Hct 46.9 MCV 95.4 H MCH 32.0 H MCHC 33.5 RDW 13.5 Plt Count 180 MPV 8.2 Neut % (Auto) 67.9 Lymph % (Auto) 24.2 [place] % (Auto) 6.9 Eos % (Auto) 0.9 Baso % (Auto) 0.2 Neut # (Auto) 9.7 H Lymph # (Auto) 3.4 [place] # (Auto) 1.0 Eos # (Auto) 0.1 Baso # (Auto) 0.0 Sodium Potassium Chloride Carbon Dioxide Anion Gap BUN Creatinine Estimated Creat Clear Estimated GFR Est GFR ( Amer) Glucose POC Glucose 250 H 162 H Calcium Magnesium Total Bilirubin AST ALT Alkaline Phosphatase Total Protein Albumin Globulin Albumin/Globulin Ratio 04/02/18 11:45 WBC RBC Hgb Hct MCV MCH MCHC RDW Plt Count MPV Neut % (Auto) Lymph % (Auto) [place] % (Auto) Eos % (Auto) Baso % (Auto) Neut # (Auto) Lymph # (Auto) [place] # (Auto) Eos # (Auto) Baso # (Auto) Sodium Potassium Chloride Carbon Dioxide Anion Gap BUN Creatinine Estimated Creat Clear Estimated GFR Est GFR ( Amer) Glucose POC Glucose 139 H Calcium Magnesium Total Bilirubin AST ALT Alkaline Phosphatase Total Protein Albumin Globulin Albumin/Globulin Ratio DS: Diagnosis - Discharge Diagnosis (1) Coronary atherosclerosis of artery bypass graft Status: Acute (2) Acute ST elevation myocardial infarction (STEMI) of inferior wall Status: Acute (3) Cardiac arrest with ventricular fibrillation Status: Acute (4) Diabetes mellitus Status: Acute (5) Hypertension Status: Acute (6) Hyperlipidemia associated with type 2 diabetes mellitus Status: Acute Discharge Plan - Patient Discharge Instructions Patient Instructions: Heart-Healthy Diet - Follow up Plan Follow up with: Senthil Clinton MD [Primary Care Provider] - Home Medications: Home Medications Medication Instructions Recorded Confirmed Type Amlodipine Besylate [Norvasc 10mg 10 mg PO DAILY 03/31/18 03/31/18 History tablet] Aspirin [Low Dose Aspirin EC] 81 mg PO DAILY 03/31/18 03/31/18 History Atorvastatin Calcium [Atorvastatin 40 mg PO HS 03/31/18 03/31/18 History 40mg Tab] Bisoprolol Fumarate [Bisoprolol 5 mg PO DAILY 03/31/18 03/31/18 History 5mg Tablet] Empagliflozin [Jardiance] 10 mg PO DAILY 03/31/18 03/31/18 History Glimepiride 4 mg PO DAILY 03/31/18 03/31/18 History Losartan Potassium 100 mg PO DAILY 03/31/18 03/31/18 History Metformin HCl 1,000 mg PO BID 03/31/18 03/31/18 History Omeprazole [Omeprazole 20mg 20 mg PO DAILY 03/31/18 03/31/18 History Capsule] Prescriptions/Medication Reconciliation: No Action Atorvastatin Calcium [Atorvastatin 40mg Tab] 40 mg PO HS Bisoprolol Fumarate [Bisoprolol 5mg Tablet] 5 mg PO DAILY Empagliflozin [Jardiance] 10 mg PO DAILY Glimepiride 4 mg PO DAILY Losartan Potassium 100 mg PO DAILY Metformin HCl 1,000 mg PO BID Omeprazole [Omeprazole 20mg Capsule] 20 mg PO DAILY Amlodipine Besylate [Norvasc 10mg tablet] 10 mg PO DAILY Aspirin [Low Dose Aspirin EC] 81 mg PO DAILY
--- NOTE | 2018-04-03 09:43 | Progress Note ---
Addendum entered and electronically signed by YG Mckeon 04/03/18 13:05: Repeat echo this a.m. confirmed ejection fraction of 40-45%. We will discontinue bisoprolol due to bradycardia. Plan for biventricular pacemaker implantation on Friday. Will resume beta- lorraine therapy after pacemaker implantation. Original Note: Subjective Date: 04/03/18 Time: 09:38 Principal diagnosis: STEMI Interval history: 72-year-old white male in bed in no acute distress. Echocardiogram being performed with Definity contrast this morning. Review of telemetry reveals no tachyarrhythmias. Patient does have bradycardia with what appears to be 2-1 block. Exam Vital signs and Labs for Last 24 Hours: Temp Pulse Resp BP Pulse Ox 98.0 F 50 L 15 116/60 97 04/02/18 20:00 04/03/18 07:55 04/02/18 20:00 04/03/18 06:16 04/03/18 07:55 Laboratory Results - last 24 hr 04/02/18 11:45: POC Glucose 139 H 04/02/18 16:13: POC Glucose 162 H 04/02/18 20:07: POC Glucose 250 H 04/03/18 05:20: WBC 14.2 H, RBC 4.92, Hgb 15.7, Hct 46.9, MCV 95.4 H, MCH 32.0 H , MCHC 33.5, RDW 13.5, Plt Count 180, MPV 8.2, Neut % (Auto) 67.9, Lymph % (Auto) 24.2, [place] % (Auto) 6.9, Eos % (Auto) 0.9, Baso % (Auto) 0.2, Neut # (Auto) 9.7 H, Lymph # (Auto) 3.4, [place] # (Auto) 1.0, Eos # (Auto) 0.1, Baso # (Auto) 0.0 04/03/18 05:20: Sodium 140, Potassium 3.4 L, Chloride 106, Carbon Dioxide 22, Anion Gap 15.4 H, BUN 12 D, Creatinine 0.79, Estimated Creat Clear 92, Estimated GFR 96, Est GFR ( Amer) 116, Glucose 137 H, Calcium 8.4 L, Total Bilirubin 1.8 H, AST 88 H D, ALT 32 D, Alkaline Phosphatase 54, Total Protein 6.7, Albumin 3.0 L, Globulin 3.7 H, Albumin/Globulin Ratio 0.8 L 04/03/18 05:20: Magnesium 2.0 04/03/18 05:22: POC Glucose 126 H I & O for Last 24 hours: Intake & Output 03/31/18 04/01/18 04/02/18 04/03/18 11:59 11:59 11:59 11:59 Intake Total 1240 / 1240 2396 / 2396 2127 / 2127 Output Total 2800 / 2800 1850 / 1850 2315 / 2315 Balance -1560 / -1560 546 / 546 -188 / -188 Weight 220 lb 8 oz 217 lb 8 oz 222 lb 6 oz - *Routine Respiratory Exam Present: CTA bilaterally - *Routine Cardiovascular Exam Present: RRR, bradycardia. Absent: murmur, gallop, rubs - *Routine Extremities Exam Absent: edema, calf tenderness Progress Note: A&P (1) Coronary atherosclerosis of artery bypass graft Status: Acute Current Visit: Yes (2) Acute ST elevation myocardial infarction (STEMI) of inferior wall Status: Acute Current Visit: Yes (3) Cardiac arrest with ventricular fibrillation Status: Acute Current Visit: Yes (4) Diabetes mellitus Status: Acute Current Visit: Yes (5) Hypertension Status: Acute Current Visit: Yes (6) Hyperlipidemia associated with type 2 diabetes mellitus Status: Acute Current Visit: Yes Assessment and Plan for All Diagnoses:: With patient's electrical abnormalities including recent V. fib during ST elevation NC and now bradycardia with 2-1 block, recommend patient continue to be hospitalized over the weekend for observation with tentative plans for p acemaker insertion on Friday. Echocardiogram images from this morning will be reviewed to finalize determination of left ventricular ejection fraction. Discussed with Dr. Haile and Dr. Bunch.
--- NOTE | 2018-04-03 09:53 | Cardiology Report ---
PROCEDURE: Limited study with Definity contrast INDICATIONS FOR THE TEST: Chest pain COPD Heart Murmur Tobacco Smoking Palpitations Fatigue Syncope Edema Hypertension+Diabetes Mellitus Rheumatic Fever SOB+HOPKINS+Obesity Hyperlipidemia Family History HD Additional History STEMI PATIENT INFORMATION HEIGHT: 70 WEIGHT: 220 GENDER: Male B/P:145/80 The left ventricle is normal size, there is mild concentric left ventricular hypertrophy, visually estimated ejection fraction approximately 40-45%, there is marked hypokinesis involving the basal septum, inferobasal, posterobasal and inferior wall, there is no left ventricular thrombus seen.
--- NOTE | 2018-04-03 14:15 | Progress Note ---
Internal Medicine - PN: Subj *Date: 04/03/18 *Time: 08:45 Interval history: no acute events overnight. Remained hemo-dynamically stable. No further events of ventricular fibrillation. Denies any chest pain, shortness of breath, nausea or vomiting, syncope, dizziness. Ambulating to and from the bathroom without difficulty. Tolerating regular diet. Tele reviewed, has second vs third degree block Exam Vital signs and Labs for Last 24 Hours: Temp Pulse Resp BP Pulse Ox 98.0 F 49 L 16 116/60 98 04/02/18 20:00 04/03/18 10:00 04/03/18 10:00 04/03/18 06:16 04/03/18 10:00 Laboratory Results - last 24 hr 04/02/18 16:13: POC Glucose 162 H 04/02/18 20:07: POC Glucose 250 H 04/03/18 05:20: WBC 14.2 H, RBC 4.92, Hgb 15.7, Hct 46.9, MCV 95.4 H, MCH 32.0 H , MCHC 33.5, RDW 13.5, Plt Count 180, MPV 8.2, Neut % (Auto) 67.9, Lymph % (Auto) 24.2, [place] % (Auto) 6.9, Eos % (Auto) 0.9, Baso % (Auto) 0.2, Neut # (Auto) 9.7 H, Lymph # (Auto) 3.4, [place] # (Auto) 1.0, Eos # (Auto) 0.1, Baso # (Auto) 0.0 04/03/18 05:20: Sodium 140, Potassium 3.4 L, Chloride 106, Carbon Dioxide 22, Anion Gap 15.4 H, BUN 12 D, Creatinine 0.79, Estimated Creat Clear 92, Estimated GFR 96, Est GFR ( Amer) 116, Glucose 137 H, Calcium 8.4 L, Total Bilirubin 1.8 H, AST 88 H D, ALT 32 D, Alkaline Phosphatase 54, Total Pr otein 6.7, Albumin 3.0 L, Globulin 3.7 H, Albumin/Globulin Ratio 0.8 L 04/03/18 05:20: Magnesium 2.0 04/03/18 05:22: POC Glucose 126 H 04/03/18 11:11: POC Glucose 174 H I & O for Last 24 hours: Intake & Output 03/31/18 04/01/18 04/02/18 04/03/18 23:59 23:59 23:59 23:59 Intake Total 350 / 350 2469 / 2469 2272 / 2272 1152 / 1152 Output Total 1175 / 1175 2325 / 2325 2865 / 2865 600 / 600 Balance -825 / -825 144 / 144 -593 / -593 552 / 552 Weight 102.71 kg 100.017 kg 98.656 kg 100.868 kg - *Routine HEENT Exam Head: Present: normocephalic, atraumatic Eye: Present: EOMI, PERRL ENT: Present: mucous membranes moist - *Routine Neck Exam Present: supple, full ROM. Absent: JVD, lymphadenopathy, thyromegaly - *Routine Respiratory Exam Present: CTA bilaterally. Absent: accessory muscle use, prolonged expiratory phase, rales, wheezes, crackles - *Routine Cardiovascular Exam Present: Normal S1, Normal S2, bradycardia. Absent: murmur - *Routine Abdominal Exam Present: soft, normoactive bowel sounds. Absent: tenderness - *Routine Rectal Exam Patient deferred: visual exam - *Routine Exam Patient deferred: penile exam - *Routine Extremities Exam Absent: cyanosis, clubbing, edema - *Routine Skin Exam Present: intact. Absent: cyanosis, erythema - *Routine Neurological Exam Present: alert, oriented X3, CN II-XII intact. Absent: altered mental status Assessment and Plan (1) Coronary atherosclerosis of artery bypass graft Current visit: Yes Status: Acute Category: Medical Code(s): I25.810 - Atherosclerosis of coronary artery bypass graft(s) without angina pectoris (2) Acute ST elevation myocardial infarction (STEMI) of inferior wall Current visit: Yes Status: Acute Category: Medical Code(s): I21.19 - ST elevation (STEMI) myocardial infarction involving other coronary artery of inferior wall (3) Cardiac arrest with ventricular fibrillation Current visit: Yes Status: Acute Category: Medical Code(s): I46.9 - Cardiac arrest, cause unspecified; I49.01 - Ventricular fibrillation (4) Diabetes mellitus Current visit: Yes Status: Acute Category: Medical Code(s): E11.9 - Type 2 diabetes mellitus without complications (5) Hypertension Current visit: Yes Status: Acute Category: Medical Code(s): I10 - Essential (primary) hypertension (6) Hyperlipidemia associated with type 2 diabetes mellitus Current visit: Yes Status: Acute Category: Medical Code(s): E11.69 - Type 2 diabetes mellitus with other specified complication; E78.5 - Hyperlipidemia, unspecified (7) Heart block Current visit: Yes Status: Acute Category: Medical Code(s): I45.9 - Conduction disorder, unspecified Patient has findings concerning for 2-1 block versus third-degree heart block with bradycardia. Due to either medication induced with beta-lorraine use or sequela of SC. -Continue to monitor on telemetry -If no improvement through the weekend, patient will necessitate cardiac resynchronization therapy -Pending results from echo, patient may benefit most from a DATA ANALYSIS MANAGER-D -Continue to monitor through the weekend for any further events. - Assessment and plan all Dx Assessment and Plan for all problems:: Continue current course -Goal-directed therapy status post SC -Continue DAPT therapy status post stents -Echo with Definity contrast performed today, results pending -Cardiology continues to follow along, appreciate recommendations. -Continues to require inpatient management due to risk for arrhythmias, stable for downgrading of status
--- NOTE | 2018-04-04 07:21 | Progress Note ---
Internal Medicine - PN: Subj *Date: 04/04/18 *Time: 07:20 Interval history: Patient slept well. No chest pain. No dyspnea Exam Vital signs and Labs for Last 24 Hours: Temp Pulse Resp BP Pulse Ox 98.4 F 43 L 24 113/40 97 04/04/18 04:00 04/04/18 04:00 04/04/18 04:00 04/04/18 04:00 04/04/18 04:00 Laboratory Results - last 24 hr 04/03/18 11:11: POC Glucose 174 H 04/03/18 16:57: POC Glucose 154 H 04/03/18 20:49: POC Glucose 200 H 04/04/18 05:49: POC Glucose 169 H I & O for Last 24 hours: Intake & Output 04/01/18 04/02/18 04/03/18 04/04/18 11:59 11:59 11:59 11:59 Intake Total 1240 / 1240 2396 / 2396 2127 / 2127 960 / 960 Output Total 2800 / 2800 1850 / 1850 2315 / 2315 Balance -1560 / -1560 546 / 546 -188 / -188 960 / 960 Weight 220 lb 8 oz 217 lb 8 oz 222 lb 6 oz Narrative: Oropharynx clear, no JVD. ENT exam otherwise negative. Lungs clear, heart rate bradycardic in the mid 40s. Patient is awake and alert, sitting on the side of the bed. No edema or clubbing, abdomen soft and nontender Assessment and Plan (1) Coronary atherosclerosis of artery bypass graft Current visit: Yes Status: Acute Category: Medical Code(s): I25.810 - Atherosclerosis of coronary artery bypass graft(s) without angina pectoris (2) Acute ST elevation myocardial infarction (STEMI) of inferior wall Current visit: Yes Status: Acute Category: Medical Code(s): I21.19 - ST elevation (STEMI) myocardial infarction involving other coronary artery of inferior wall (3) Cardiac arrest with ventricular fibrillation Current visit: Yes Status: Acute Category: Medical Code(s): I46.9 - Cardiac arrest, cause unspecified; I49.01 - Ventricular fibrillation (4) Diabetes mellitus Current visit: Yes Status: Acute Category: Medical Code(s): E11.9 - Type 2 diabetes mellitus without complications (5) Hypertension Current visit: Yes Status: Acute Category: Medical Code(s): I10 - Essential (primary) hypertension (6) Hyperlipidemia associated with type 2 diabetes mellitus Current visit: Yes Status: Acute Category: Medical Code(s): E11.69 - Type 2 diabetes mellitus with other specified complication; E78.5 - Hyperlipidemia, unspecified (7) Heart block Current visit: Yes Status: Acute Category: Medical Code(s): I45.9 - Conduction disorder, unspecified - Assessment and plan all Dx Assessment and Plan for all problems:: Given patient's bradycardia we will titrate amiodarone down to 200 mg twice daily. Await AICD/pacemaker placement on Friday.
[2018-04-04 07:30] LABS: Anion Gap 15.8 mEq/L (5-15); Calcium 8.5 mg/dL (8.5-10.1); Potassium 3.8 mmoL/L (3.5-5.1)
--- NOTE | 2018-04-05 07:17 | Progress Note ---
Internal Medicine - PN: Subj *Date: 04/05/18 *Time: 07:16 Interval history: Patient has no complaints this morning. He denies palpitations or chest pain. He is scheduled for AICD implantation tomorrow morning. Nursing staff reports his pulse rate decreased to the 50s overnight. Exam Vital signs and Labs for Last 24 Hours: Temp Pulse Resp BP Pulse Ox 97.9 F 75 15 137/73 93 L 04/05/18 04:50 04/05/18 04:50 04/05/18 04:50 04/05/18 04:50 04/05/18 04:50 Laboratory Results - last 24 hr 04/04/18 06:40: Sodium 142, Potassium 3.8, Chloride 108 H, Carbon Dioxide 22, Anion Gap 15.8 H, BUN 17 D, Creatinine 0.80, Estimated Creat Clear 92, Estimated GFR 94, Est GFR ( Amer) 114, Glucose 133 H, Calcium 8.5 04/04/18 11:42: POC Glucose 121 H 04/04/18 16:33: POC Glucose 176 H 04/04/18 20:13: POC Glucose 138 H 04/05/18 05:44: POC Glucose 112 H I & O for Last 24 hours: Intake & Output 04/02/18 04/03/18 04/04/18 04/05/18 11:59 11:59 11:59 11:59 Intake Total 2396 / 2396 2127 / 2127 1440 / 1440 960 / 960 Output Total 1850 / 1850 2315 / 2315 Balance 546 / 546 -188 / -188 1440 / 1440 960 / 960 Weight 217 lb 8 oz 222 lb 6 oz 216 lb 3 oz Narrative: He is awake and alert sitting up on the side of the bed eating breakfast. He is in no distress. Lungs are clear to auscultation. Heart rate is irregular. Assessment and Plan (1) Coronary atherosclerosis of artery bypass graft Current visit: Yes Status: Acute Category: Medical Code(s): I25.810 - Atherosclerosis of coronary artery bypass graft(s) without angina pectoris (2) Acute ST elevation myocardial infarction (STEMI) of inferior wall Current visit: Yes Status: Acute Category: Medical Code(s): I21.19 - ST elevation (STEMI) myocardial infarction involving other coronary artery of inferior wall (3) Cardiac arrest with ventricular fibrillation Current visit: Yes Status: Acute Category: Medical Code(s): I46.9 - Cardiac arrest, cause unspecified; I49.01 - Ventricular fibrillation (4) Diabetes mellitus Current visit: Yes Status: Acute Category: Medical Code(s): E11.9 - Type 2 diabetes mellitus without complications (5) Hypertension Current visit: Yes Status: Acute Category: Medical Code(s): I10 - Essential (primary) hypertension (6) Hyperlipidemia associated with type 2 diabetes mellitus Current visit: Yes Status: Acute Category: Medical Code(s): E11.69 - Type 2 diabetes mellitus with other specified complication; E78.5 - Hyperlipidemia, unspecified (7) Heart block Current visit: Yes Status: Acute Category: Medical Code(s): I45.9 - Conduction disorder, unspecified - Assessment and plan all Dx Assessment and Plan for all problems:: No change in care today. Await AICD implantation tomorrow
--- NOTE | 2018-04-06 08:10 | Progress Note ---
Subjective Date: 04/06/18 Time: 08:06 Principal diagnosis: STEMI Interval history: 72 yo WM with no complaints over the weekend. Telemetry and EKG's yesterday and this AM shows sinus rhythm with first degree AV block. No further high grade AV block or tachy-roseline syndrome at this time. Pacemaker cancelled due to baptism of sinus rhythm yesterday. Exam Vital signs and Labs for Last 24 Hours: Temp Pulse Resp BP Pulse Ox 97.9 F 70 18 150/80 93 L 04/05/18 15:49 04/06/18 04:00 04/05/18 18:58 04/05/18 18:58 04/05/18 18:00 Laboratory Results - last 24 hr 04/05/18 10:51: POC Glucose 113 H 04/05/18 16:56: POC Glucose 134 H 04/05/18 20:11: POC Glucose 175 H 04/06/18 05:23: POC Glucose 110 I & O for Last 24 hours: Intake & Output 04/03/18 04/04/18 04/05/18 04/06/18 11:59 11:59 11:59 11:59 Intake Total 2127 / 2127 1440 / 1440 1320 / 1320 1512 / 1512 Output Total 2315 / 2315 1250 / 1250 Balance -188 / -188 1440 / 1440 1320 / 1320 262 / 262 Weight 222 lb 6 oz 216 lb 3 oz 221 lb 1 oz - *Routine Neck Exam Present: supple. Absent: JVD, carotid bruit - *Routine Respiratory Exam Present: CTA bilaterally. Absent: accessory muscle use, rales, rhonchi, wheezes - *Routine Cardiovascular Exam Present: RRR. Absent: murmur, gallop, rubs - *Routine Extremities Exam Absent: edema, calf tenderness Progress Note: A&P (1) Coronary atherosclerosis of artery bypass graft Status: Acute Current Visit: Yes (2) Acute ST elevation myocardial infarction (STEMI) of inferior wall Status: Acute Current Visit: Yes (3) Cardiac arrest with ventricular fibrillation Status: Acute Current Visit: Yes (4) Diabetes mellitus Status: Acute Current Visit: Yes (5) Hypertension Status: Acute Current Visit: Yes (6) Hyperlipidemia associated with type 2 diabetes mellitus Status: Acute Current Visit: Yes (7) Heart block Status: Acute Current Visit: Yes Assessment and Plan for All Diagnoses:: OK for discharge home from Cardiology standpoint since sinus rhythm restored without further high grade heart block or tachy-roseline syndrome. Home meds to include: Amiodarone 200 mg BID ASA 81 mg daily Brilinta 90 mg BID Atorvastatin 40 mg daily Irbesartan 150 mg BID Will consider restarting low dose beta lorraine at follow up next week.
--- NOTE | 2018-04-06 13:28 | Discharge Summary ---
General - General Admission date:: 03/31/18 Discharge date: 04/06/18 HPI HPI: 72-year-old white male with history of coronary disease, status post CABG greater than 10 years ago four-vessel, was mowing his yard yesterday and had a feeling of impending doom, left arm pain, chest pressure and diaphoresis. Reported to the emergency department. During the process of workup after labs were done the patient had a cardiac arrest with ventricular fibrillation. He was quickly defibrillated and taken to cardiac catheterization after initial laboratory studies showed elevated troponins with EKG showing ST changes consistent with STEMI. He was subjected to left heart cath with successful deployment of 4 stents. Official report pending, and transferred to the hip down unit. Overnight he initially did well but around 130 this morning had another episode of ventricular fibrillation which obviously required defibrillation. Cardiology was consulted by phone and recommended the initiation of oral amiodarone therapy which was given. Currently patient feels well except for some chest pain from cardiac compressions and defibrillation paddles. Hospital Course Hospital Course: Patient was admitted, ruled in for myocardial infarction and had the episode of ventricular fibrillation in the emergency department as noted. Taken to heart catheterization lab. Please see results of heart catheterization as noted below: "72-year-old white male with known coronary artery disease, diabetes mellitus and hypertension was brought to the emergency department after 1 hour of chest discomfort described as a pressure/tightness sensation and the generally not feeling well while riding lawnmower cutting grass. Patient called his when symptoms would not vu, and was transported to the hospital for further evaluation. Patient was quickly diagnosed with an acute ST elevation TN with the STEMI team called promptly. Patient did have V. fib and subsequent cardiac arrest requiring defibrillation while in the ER. He was taken to the cardiac Microbiology Director with subsequent stenting of a vein graft but due to "slow flow" down the graft, patient continued to have thrombus form in the vein graft." Patient had another episode of ventricular fibrillation post catheterization, defibrillation was successful, and patient did well after that except for 2 days of bradycardia with one episode of third-degree AV block. It was felt by the cardiology team that this was because of duplicate beta blockers that have been ordered erroneously. These were held and patient was watched over the weekend with plans for AICD device today, but this morning cardiology felt that his pulse rate in the 70s in sinus rhythm would preclude this. Please see their consult note from today as pasted into this document below: "OK for discharge home from Cardiology standpoint since sinus rhythm restored without further high grade heart block or tachy-roseline syndrome. Home meds to include: Amiodarone 200 mg BID ASA 81 mg daily Brilinta 90 mg BID Atorvastatin 40 mg daily Irbesartan 150 mg BID Will consider restarting low dose beta lorraine at follow up next week." As a result given his lack of other medical problems patient will be discharged per their instructions. Follow-up in our office in 3 days, cardiology next week. Dietary consult scheduled Objective Vital signs: Temp Pulse Resp BP Pulse Ox 98.2 F 82 15 166/85 94 L 04/05/18 20:00 04/06/18 12:00 04/06/18 12:00 04/06/18 12:00 04/06/18 04:00 Narrative: Please see exam notes from cardiology discharge today Results Labs on day of discharge: Labs from last 24 hours 04/06/18 04/06/18 04/05/18 11:15 05:23 20:11 POC Glucose 134 H 110 175 H 04/05/18 16:56 POC Glucose 134 H DS: Diagnosis - Discharge Diagnosis (1) Coronary atherosclerosis of artery bypass graft Status: Acute (2) Acute ST elevation myocardial infarction (STEMI) of inferior wall Status: Acute (3) Cardiac arrest with ventricular fibrillation Status: Acute (4) Diabetes mellitus Status: Acute (5) Hypertension Status: Acute (6) Hyperlipidemia associated with type 2 diabetes mellitus Status: Acute (7) Heart block Status: Acute Discharge Plan - Patient Discharge Instructions ACTIVITY: Limited activity Patient Instructions: Ventricular Fibrillation, Heart Attack, Cardiac Catheterization, Heart-Healthy Diet, DI for Surgical Site Infection, Surgical Site Infection - Follow up Plan Follow up with: Malissa Kilgore APRN [Family Provider] - 04/09/18 Jose R Haile MD [Staff Physician] - 1 week Disposition: Home, Self-Custodial Medications: Home Medications Medication Instructions Recorded Confirmed Type Amlodipine Besylate [Norvasc 10mg 10 mg PO DAILY 03/31/18 03/31/18 History tablet] Aspirin [Low Dose Aspirin EC] 81 mg PO DAILY 03/31/18 03/31/18 History Atorvastatin Calcium [Atorvastatin 40 mg PO HS 03/31/18 03/31/18 History 40mg Tab] Bisoprolol Fumarate [Bisoprolol 5 mg PO DAILY 03/31/18 03/31/18 History 5mg Tablet] Empagliflozin [Jardiance] 10 mg PO DAILY 03/31/18 03/31/18 History Glimepiride 4 mg PO DAILY 03/31/18 03/31/18 History Losartan Potassium 100 mg PO DAILY 03/31/18 03/31/18 History Metformin HCl 1,000 mg PO BID 03/31/18 03/31/18 History Omeprazole [Omeprazole 20mg 20 mg PO DAILY 03/31/18 03/31/18 History Capsule] Prescriptions/Medication Reconciliation: New Amiodarone HCl [Cordarone 200mg tablet] 200 mg PO BID #60 tablet Aspirin [Aspirin 81mg chewable tab] 81 mg PO DAILY #30 tab.chew Atorvastatin Calcium [Lipitor 40mg Tablet] 40 mg PO HS #30 tablet Ticagrelor [Brilinta 90mg Tablet] 90 mg PO BID #60 tablet Continue Atorvastatin Calcium [Atorvastatin 40mg Tab] 40 mg PO HS Empagliflozin [Jardiance] 10 mg PO DAILY Glimepiride 4 mg PO DAILY Losartan Potassium 100 mg PO DAILY Metformin HCl 1,000 mg PO BID Omeprazole [Omeprazole 20mg Capsule] 20 mg PO DAILY Amlodipine Besylate [Norvasc 10mg tablet] 10 mg PO DAILY Aspirin [Low Dose Aspirin EC] 81 mg PO DAILY Discontinued Bisoprolol Fumarate [Bisoprolol 5mg Tablet] 5 mg PO DAILY Other Amb Orders: Nutrition Consult Location: Dietary Department
== END 2018-04-06 14:59 | disposition home or self-care (01) ==
LOC: ER 16:17 → SDC 16:28 → CATHLAB 16:31 → 2ND 18:41
PROVIDERS: ADMIT Internal Medicine Adolescent Medicine; ATTEND Internal Medicine Adolescent Medicine

== ENCOUNTER 2018-04-08 08:44 | Outpatient (RCR) | payer MEDICARE, SELFPAY | END 2018-07-03 15:09 | disposition home or self-care (01) | LOC: PT 08:44 | PROVIDERS: Family Provider Nurse Practitioner Family; PCP Internal Medicine Adolescent Medicine; Visit Provider Internal Medicine | DX: Z95.5 Presence of coronary angioplasty implant and graft (principal) | CPT/HCPCS: 93798 ==

== ENCOUNTER → 2018-04-09 14:07 | Outpatient (POV) | payer MEDICARE, SELFPAY | PROVIDERS: Visit Provider Neurological Surgery | DX: Z00.00 Encounter for general adult medical examination without abnormal findings (principal) ==

== ENCOUNTER → 2018-04-14 09:47 | Outpatient (CLI) | payer MEDICARE, SELFPAY | PROVIDERS: Family Provider Nurse Practitioner Family; PCP Internal Medicine Adolescent Medicine; Visit Provider Internal Medicine Adolescent Medicine | DX: E11.9 Type 2 diabetes mellitus without complications (principal) | CPT/HCPCS: 97802; G0108 ==

== ENCOUNTER → 2018-04-20 09:36 | Outpatient (CLI) | payer MEDICARE, SELFPAY ==
--- NOTE | 2018-04-20 09:38 | CT_ITS ---
CT abdomen pelvis w con CLINICAL INDICATION: Left-sided upper abdominal pain ITS.REASON: NEURITIS DUE TO DM ORDERING PHYSICIAN: Michelle Pierce PATIENT AGE: 73 years COMPARISON: None TECHNIQUE: Axial images obtained with sagittal and coronal reformats. All CT scans at the facility use one or more dose reduction, viz: automated exposure control, ma/kV adjustment per patient size (including targeted exams where dose is matched to indication, i.e. head), or iterative reconstruction technique. PROCEDURE: Oral Contrast: None IV Contrast: 75 mL's of Isovue-370. FINDINGS: Atelectatic or fibrotic changes are present in the right lung base with faint nodular groundglass opacity in the right lung base posteriorly nonspecific. There has been a prior CABG. The liver, spleen, adrenal glands, pancreas, and kidneys have an unremarkable appearance. No evidence of appendicitis. Multiple diverticula involving the colon throughout greater in the sigmoid region. No evidence of diverticulitis. No focal inflammatory change evident. There is a small umbilical hernia which contains fat and fluid density along the anterior aspect of the hernia. No pelvic mass abnormal fluid collection or focal inflammatory change evident in the pelvis. Artifact is present from bilateral hip replacements. No acute bony findings. A small bone island involves the right ilium posteriorly 6 mm. Atherosclerotic changes involve the aorta with minimal ectasia of the infrarenal abdominal aorta measuring up to 2.4 cm. There is atherosclerotic plaque at the ostium of the celiac and SMA with no obvious significant stenosis. IMPRESSION: 1. No acute abdominal or pelvic findings. 2. Colonic diverticulosis. No evidence of diverticulitis 3. Atherosclerotic changes of the aorta and branch vessels. 4. Small umbilical hernia containing fat and a small amount of fluid
--- NOTE | 2018-04-20 10:37 | HMH.ITSHM ---
GAPEPENTIN,AMODOARNE METAFORMIN CHOLDESTERO,BLOOD PRESSURE, THINNER,JARDIANCE
== END ==
PROVIDERS: Family Provider Nurse Practitioner Family; PCP Internal Medicine Adolescent Medicine; Visit Provider Physician Assistant Medical
DX: E11.41 Type 2 diabetes mellitus with diabetic mononeuropathy (principal)
CPT/HCPCS: 74177; Q9967

== ENCOUNTER → 2018-06-08 16:02 | Outpatient (CLI) | payer MEDICARE, SELFPAY | PROVIDERS: Visit Provider Specialist | DX: G93.40 Encephalopathy, unspecified (principal) | CPT/HCPCS: 94762 ==

== ENCOUNTER → 2018-06-17 11:05 | Outpatient (CLI) | payer MEDICARE, SELFPAY ==
--- NOTE | 2018-06-17 11:06 | CI_ITS ---
Cerebrovascular Exam IMPRESSIONS 1. The bilateral vertebral arteries are patent with normal antegrade flow. 2. Study suggests 20-49%(lower end of scale)stenosis involving the right internal carotid artery. 3. Study suggests 20-49% stenosis involving the left internal carotid artery. History: Memory loss. Coronary artery disease. Risk factors: Hypertension. Carotid duplex study. Complete study and Doppler flow study including spectral analysis, color and bustos scale imaging. Height: Height: 177.8cm. Height: 70in. Weight: Weight: 101.6kg. Weight: 223.5lb. Body mass index: BMI: 32.1kg/m^2. Body surface area: BSA: 2.27m^2. Location: Vascular laboratory. Patient status: Outpatient. Tables: Arterial flow: + +--------+--------+ Location V janes V ed + +--------+--------+ Right CCA - proximal 96.6cm/s 16.5cm/s + +--------+--------+ Right CCA - distal 88cm/s 16.8cm/s + +--------+--------+ Right ECA 115cm/s -------- + +--------+--------+ Right ICA - proximal 82.2cm/s 19.3cm/s + +--------+--------+ Right ICA - mid 125cm/s 36.3cm/s + +--------+--------+ Right ICA - distal 101cm/s 19.9cm/s + +--------+--------+ Right vertebral 39.4cm/s -------- + +--------+--------+ Left CCA - proximal 129cm/s 24.6cm/s + +--------+--------+ Left CCA - distal 101cm/s 15.7cm/s + +--------+--------+ Left ECA 151cm/s -------- + +--------+--------+ Left ICA - proximal 101cm/s 22cm/s + +--------+--------+ Left ICA - mid 101cm/s 15.7cm/s + +--------+--------+ Left ICA - distal 60.1cm/s 14.5cm/s + +--------+--------+ Left vertebral 31.1cm/s -------- + +--------+--------+ Velocity ratios: + + + + + + Right, V sys Right, V ed Left, V sys Left, V ed + + + + + + Max ICA/dist CCA 1.42 2.16 1 1.4 + + + + + + (Report amended ) Electronically signed by: Barron Solares [id number]
== END ==
PROVIDERS: PCP Internal Medicine Adolescent Medicine; Visit Provider Internal Medicine Cardiovascular Disease
DX: R09.89 Other specified symptoms and signs involving the circulatory and respiratory systems (principal)
CPT/HCPCS: 93880

== ENCOUNTER → 2018-06-22 12:18 | Outpatient (CLI) | payer MEDICARE, SELFPAY ==
--- NOTE | 2018-06-22 12:19 | MR_ITS ---
MR head/brain wo con Ordering Physician: Diana Faria MD Patient Age: 73 years: Male HISTORY: ITS.REASON: memory loss progressive memory loss. Difficulty remembering with speech TECHNIQUE: MR brain without contrast. : Precontrast Multiplanar FLAIR, T1, T2 weighted images along with axial diffusion/ADC imaging performed on 1.5 T. Siemens, MRI. . COMPARISON :No prior studies for comparison FINDINGS . No mass lesion. No territorial infarct.No extra-axial/subdural collections. . scattered small high signal foci throughout deep white matter regions cerebral hemispheres bilaterally. Small fairly punctate high signal foci are seen scattered Throughout central semiovale. Most evident at periventricular deep white matter regions. There are a few small subcortical high signal foci particular towards the posterior left parietal region. These findings compatible with Chronic small vessel deep white matter high signal ischemic gliotic changes, common encounter with aging brain. There is also some generous perivascular spaces seen at periphery of the basal ganglia bilaterally. Nonspecific but can be seen with underlying hypertension history. The ventricles and basal cisterns appear satisfactory. Cranial cervical junction is normal. Posterior fossa unremarkable. The visualized paranasal sinuses are clear. Orbits unremarkable Moderate engorgement nasal turbinates noted. Mastoid air cells well-developed and clear. IACs symmetrical with cranial nerve 7 & 8 unremarkable. CP angles clear... Diffusion images reveal no acute or recent ischemia or infarct. IMPRESSION: 1. Mild to moderate Chronic small vessel deep white matter ischemic/ gliotic changes cerebral hemispheres bilaterally 2. No territorial infarct. No mass lesion. No acute findings 3. Mild cerebral atrophy age-appropriate
--- NOTE | 2018-06-22 12:24 | CA_ITS ---
PROCEDURE: 2-D M-mode and color Doppler study INDICATIONS FOR THE TEST: Chest pain COPD Heart Murmur Tobacco Smoking Palpitations Fatigue Syncope Edema Hypertension+Diabetes Mellitus+ Rheumatic Fever SOB HOPKINS Obesity+Hyperlipidemia+ Family History HD Additional History OLD MN, EF 40% 03/31/19, STENTS 04/28/18 PATIENT INFORMATION HEIGHT: 70 WEIGHT:224 GENDER: Male B/P:160/73 2-D/M-MODE INTERPRETATION: 2-D MEASUREMENTS OBSERVED VALUES IN CMS Right Ventricular Dimension (RVDd) 2.7 Interventricular Septum (Thickness)(IVsd) 1.8 Left Ventricular Internal Dimensions(LVIDd) 3.5 Left Ventricular Posterior Wall (Thickness)(LVPWd) 1.2 Aortic Root 3.4 Aortic Cusp Separation 1.7 Left Atrial Dimensions (LAD) 4.1 2D 1. The left atrium is mildly enlarged, left ventricle is normal size, mild concentric left ventricular hypertrophy, visually estimated ejection fraction approximately 45%, there is mild hypertrophic involving the inferobasal and posterobasal wall. 2. The right atrium and right ventricle are normal size and contractility. 3. The aortic valve is minimally thickened and fibrosed. 4. The mitral and tricuspid valve leaflets are minimally thickened. 5. The pulmonic valve is poorly visualized. 6. There is no significant pericardial effusion noted. DOPPLER INTERROGATION: Doppler interrogation of the aortic, mitral and tricuspid valvular presence of mild mitral and tricuspid regurgitation, tricuspid regurgitation jet velocity is insufficient for calculation of the right ventricular systolic pressure, grade 1 diastolic dysfunction seen with tissue Doppler evidence of raised left atrial pressure. CONCLUSION: 1. Mildly enlarged left atrium, normal left ventricular size, mild concentric left ventricular hypertrophy, visually estimated ejection fraction approximately 45% with multiple segmental wall motion abnormality described above, grade 1 diastolic dysfunction seen with tissue Doppler evidence of raised left atrial pressure. 2. Mild mitral and tricuspid regurgitation 3. No significant pericardial effusion noted.
== END ==
PROVIDERS: PCP Internal Medicine Adolescent Medicine; Referring Provider Internal Medicine; Visit Provider Specialist
DX: E11.59 Type 2 diabetes mellitus with other circulatory complications (principal); E11.69 Type 2 diabetes mellitus with other specified complication; E78.5 Hyperlipidemia, unspecified; R41.3 Other amnesia; E78.2 Mixed hyperlipidemia; I10 Essential (primary) hypertension; I21.19 ST elevation (STEMI) myocardial infarction involving other coronary artery of inferior wall; I25.10 Atherosclerotic heart disease of native coronary artery without angina pectoris; I25.5 Ischemic cardiomyopathy; I45.9 Conduction disorder, unspecified; I46.9 Cardiac arrest, cause unspecified; I49.01 Ventricular fibrillation; Z79.84 Long term (current) use of oral hypoglycemic drugs
CPT/HCPCS: 70551; 93306

== ENCOUNTER → 2018-10-20 07:46 | Outpatient (CLI) | payer MEDICARE, SELFPAY ==
--- NOTE | 2018-10-20 07:47 | AS_ITS ---
Renal Arterial Duplex Indications: 405.91 Unspecified renovascular hypertension. IMPRESSIONS 1. The right renal artery appears normal. 2. The left renal artery appears normal. 3. 0.8 cm hyperechoic polyp seen gallbladder. History: Risk factors: Hypertension. Diabetes mellitus. Coronary artery disease. Complete renal arterial duplex. Duplex scan and Doppler flow study including spectral analysis, color and bustos scale imaging. Height: Height: 177.8cm. Height: 70in. Weight: Weight: 100.7kg. Weight: 221.5lb. Body mass index: BMI: 31.9kg/m^2. Body surface area: BSA: 2.26m^2. Location: Vascular laboratory. Patient status: Outpatient. Tables: Arterial flow: + +--------+--------+ Location V sys V ed + +--------+--------+ Right renal - proximal 128cm/s 22.8cm/s + +--------+--------+ Right renal - mid 127cm/s 28.5cm/s + +--------+--------+ Right renal - distal 100cm/s 21.9cm/s + +--------+--------+ Left renal - proximal 106cm/s 26.9cm/s + +--------+--------+ Left renal - mid 109cm/s 25.6cm/s + +--------+--------+ Left renal - distal 61.2cm/s 11.4cm/s + +--------+--------+ Right renal-origin 167cm/s 61.9cm/s + +--------+--------+ Left renal-origin 125cm/s 26.3cm/s + +--------+--------+ Aorta-prox 120cm/s -------- + +--------+--------+ Renal anatomy: + +------+------+ Left Right + +------+------+ Long axis 12.8cm 11.3cm + +------+------+ Short axis 8.8cm 8.4cm + +------+------+ Cortical thickness 2.5cm 1.8cm + +------+------+ Velocity ratios: + +-----+ V sys + +-----+ Right renal/aortic 1.4 + +-----+ Left renal/aortic 1 + +-----+ (Report amended ) Electronically signed by: Slim Parisi [id number]
== END ==
PROVIDERS: PCP Internal Medicine Adolescent Medicine; Visit Provider Internal Medicine
DX: E11.59 Type 2 diabetes mellitus with other circulatory complications (principal); E11.69 Type 2 diabetes mellitus with other specified complication; E78.2 Mixed hyperlipidemia; E78.5 Hyperlipidemia, unspecified; I10 Essential (primary) hypertension; I25.10 Atherosclerotic heart disease of native coronary artery without angina pectoris; R42 Dizziness and giddiness; Z79.84 Long term (current) use of oral hypoglycemic drugs
CPT/HCPCS: 93976

== ENCOUNTER → 2021-04-04 14:57 | Outpatient (CLI) | payer MEDICARE, SELFPAY ==
--- NOTE | 2021-04-04 15:01 | XR_ITS ---
PROCEDURE: XR HAND RT MIN 3V CLINICAL INDICATION: PAIN OF RT THUMB, TRIGGER THUMB OF RT HAND COMPARISON: No exams were available for comparison FINDINGS: No fracture or dislocation. No lytic or blastic change. There is normal mineralization. There are minimal osteoarthritic changes of the 1st metacarpophalangeal joint Other findings:None. 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
== END ==
PROVIDERS: PCP Nurse Practitioner Family; Visit Provider Nurse Practitioner Family
DX: M79.644 Pain in right finger(s) (principal); M65.311 Trigger thumb, right thumb
CPT/HCPCS: 73130

== ENCOUNTER → 2022-01-23 08:30 | Outpatient (CLI) | payer MEDICARE, SELFPAY ==
--- NOTE | 2022-01-23 08:42 | CT_ITS ---
FINAL REPORT CLINICAL HISTORY: UMBILICAL HEMIA W/OUT GANGRENE. PERIUMBILICAL PAIN COMPARISON: April 20, 2018. FINDINGS: Axial CT images of the abdomen and pelvis were obtained without intravenous contrast. Coronal reformatted images were also obtained.This study was performed with techniques to keep radiation doses as low as reasonably achievable (ALARA). Individualized dose reduction techniques using automated exposure control or adjustment of mA and/or kV according to the patient's size were employed. Abdomen: There is new pleural based soft tissue opacity in the right lower lobe favoring rounded atelectasis. There is no evidence of renal stone or hydronephrosis. There is a gallstone in the gallbladder. The liver, spleen and pancreas have an unremarkable, unenhanced appearance. No mass or adenopathy is seen. No inflammatory process is identified. 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 There is descending and sigmoid colon diverticulosis. There are small periumbilical hernias containing fat, stable. Pelvis: Images of the pelvis reveal no evidence of ureteral dilation or ureteral stone. Bilateral hip arthroplasties result in streak artifact. IMPRESSION: Stable periumbilical hernias containing fat. Diverticulosis without evidence of diverticulitis. Cholelithiasis. Right lower lobe soft tissue opacity favoring rounded atelectasis. Reviewed, Interpreted and Dictated by Rishi Lyle III, MD Transcribed by Bunny Landry Authenticated and [facility]
== END ==
PROVIDERS: PCP Nurse Practitioner Family; Visit Provider Nurse Practitioner Family
DX: R10.33 Periumbilical pain (principal); K42.9 Umbilical hernia without obstruction or gangrene
CPT/HCPCS: 74176

== ENCOUNTER → 2023-07-03 07:49 | Outpatient (CLI) | payer MEDICARE, SELFPAY ==
--- NOTE | 2023-07-03 | CA_ITS ---
APPROVED REPORT EXAM: Comprehensive 2D, Doppler, and color-flow Echocardiogram Product Safety Lead: Ching Reynoso CRT Ht: 5 ft 10 in Wt: 213lbs BSA: 2.14 BP: 122/70 mmHg Indications: CABG, CAD, CM, HTN,HLD, murmur, stents, ex smoker TDE d/t poor u 2D Dimensions Left Atrium 4.07 cm LVEF (Sahu's) 40.20 % LVOT 1.59 cm (M/F) 1.5-2.5 LV Volume 108.30 mL LA Volume 34.30 mL LA Volume Index 16.00 mL/m2 (M/F) 16-34 EF AP4 46.90 % EF AP2 38.9 % EF BP 40.2 % GL Strain -12.8 % M-Mode Dimensions RVDd 2.62 cm (0.9-2.6) LVDd 5.05 cm (3.5-5.7) Ao Diam 4.17 cm (2.0-3.7) LVDs 3.76 cm (3.5-5.7) IVSd 1.44 cm (0.6-1.1) PWd 0.76 cm (0.6-1.1) EF (Teich) 50.10% FS 25.50% EDV (Teich) 121.00 mL ESV (Teich) 60.40 mL LV Diastology E Decel Time 253 (160-240 msec) E/A Ratio 0.69 MED E' 4.9 (>= 7 cm/sec) MED A' 10.00 cm/s E'/MED E' Ratio 12.59 (<= 14) LAT E' 8.1 (>= 10 cm/sec) LAT A' 10.40 cm/s E/LAT E' Ratio 7.62 (<= 14) Aortic Valve LVOT Max 130.0 (70-110 cm/s) [place] Index 0.57 cm2/m2 LVOT VTI 29.00 cm AoV Peak Bartolome. 234.0 (50-130 cm/s) AO Peak GR. 17.60 mmHg AO Mean GR. 12.70 (<5 mmHg) AO VTI 47.0 (18-25 cm) [place] (VTI) 1.23 (2.5-4.5 cm2) Mitral Valve MV E Max Bartolome. 62.0 (40-130 cm/s) MV A Velocity 89.0 (40-130 cm/s) E/A Ratio 0.69 MV Decel. Time 253 (160-240 ms) Tricuspid Valve TR P. Velocity 160.00 cm/s RAP Estimate 10.00 mmHg RVSP 20.20 mmHg Left Ventricle The left ventricle is normal size. The left ventricular systolic function is normal. The left ventricular ejection fraction is within the normal range. There is increased LV wall thickness. There is normal LV segmental wall motion. Transmitral Doppler flow pattern suggests impaired LV relaxation. LVEF is 55%. Right Ventricle The right ventricle is mildly dilated. Normal biventricular systolic function. The right ventricular systolic function is normal. Atria The left atrium size is normal. The right atrium size is normal. There is no Doppler evidence of interatrial shunt. Aortic Valve The aortic valve is moderately thickened. Mild to moderate aortic stenosis. Aortic valve area by continuity equation is 1.5 cm2. The peak velocity is 2.5 m/s. Mean AV gradient 13 mmHg. Max AV gradient 27 mmHg. Mild aortic regurgitation. Mitral Valve The mitral valve leaflets are mildly thickened. No evidence of mitral valve stenosis. Trace mitral regurgitation. Tricuspid Valve The tricuspid valve leaflets are thin and pliable. Trace tricuspid regurgitation. There is insufficient TR jet to estimate RVSP. Pulmonic Valve The pulmonary valve is normal in structure. Trace pulmonic regurgitation. Great Vessels The aortic root is normal in size. The ascending aorta is not well-visualized. The IVC is not well-visualized. Pericardium There is no pericardial effusion. Other Information Study Quality: Technically Difficult Conclusion Technically difficult study due to poor acoustic windows. Normal biventricular systolic function. Mild RV dilation. Mild to moderate aortic stenosis (aortic valve area by continuity equation is 1.5 cm2. The peak velocity is 2.5 m/s. Mean AV gradient 13 mmHg. Max AV gradient 27 mmHg). Mild AI. Electronically signed by : Nimo Kat MD 07/09/2023 23:36:29
== END ==
PROVIDERS: PCP Nurse Practitioner Family; Visit Provider Nurse Practitioner Family
DX: R01.1 Cardiac murmur, unspecified (principal)
CPT/HCPCS: 93306

== ENCOUNTER 2023-07-22 13:24 | Outpatient (POV) | payer MEDICARE, SELFPAY | END 2023-07-22 23:59 | disposition home or self-care (01) | LOC: SC 13:25 | PROVIDERS: PCP Nurse Practitioner Family; Visit Provider Dermatology | DX: Z00.00 Encounter for general adult medical examination without abnormal findings (principal) ==

== ENCOUNTER 2023-08-25 07:43 | Outpatient (CLI) | payer MEDICARE, SELFPAY ==
--- NOTE | 2023-08-25 07:55 | US_ITS ---
FINAL REPORT TECHNIQUE: Limited sonographic imaging of the left groin was obtained. CLINICAL HISTORY: LEFT GROIN PAIN FINDINGS: There are several lymph nodes seen in the left groin measuring up to 4.1 cm most consistent with reactive lymph nodes. There is no abnormal fluid collection. IMPRESSION: Lymph nodes in the left groin measuring up to 4.1 cm most consistent with reactive lymph nodes. Reviewed, Interpreted and Dictated by Rishi Lyle III, MD Transcribed by Mini Ramsey Authenticated and . [facility]
== END 2023-08-25 23:59 ==
LOC: RAD 07:44
PROVIDERS: PCP Nurse Practitioner Family; Visit Provider Nurse Practitioner Family
DX: R10.32 Left lower quadrant pain (principal)
CPT/HCPCS: 76882

== ENCOUNTER 2023-09-15 07:57 | Outpatient (CLI) | payer MEDICARE, SELFPAY ==
--- NOTE | 2023-09-15 08:03 | CT_ITS ---
FINAL REPORT TECHNIQUE: After the administration of intravenous contrast, axial images were obtained through the abdomen and pelvis by computed tomography. This study was performed with technique to keep radiation doses as low as reasonably achievable, (ALARA). Individualized dose reduction techniques using automated exposure control or adjustment of the MA and/or KV according to the patient's size were employed. CLINICAL HISTORY: LLQ PAIN,INGUINAL LYMPHADENOPATHY COMPARISON: 01/23/2022 FINDINGS: Abdomen: The lung bases demonstrate worsening right lower lobe airspace disease concerning for pneumonia and a small right pleural effusion. The liver is normal in size and attenuation. Gallbladder is present. The spleen is unremarkable. The adrenals are normal. The pancreas is unremarkable. The kidneys enhance appropriately. The aorta is normal in caliber. There is no abdominal lymphadenopathy or ascites. Pelvis: Patient is status post bilateral hip arthroplasty with associated artifact. Prostate is enlarged. There is diverticulosis without evidence of diverticulitis. The appendix is not identified. There are no secondary findings of appendicitis. The urinary bladder is unremarkable. There is no free fluid or adenopathy. IMPRESSION: Right lower lobe pneumonia with small right pleural effusion. No acute abnormality of the abdomen pelvis. No inguinal lymphadenopathy. Enlarged prostate. Reviewed, Interpreted and Dictated by Nazia England MD Transcribed by Mini Ramsey Authenticated and [facility]
[2023-09-15] MEDS: IOPAMIDOL-370 (76%);100ML BOTTLE 75 ML IV (08:29)
[2023-09-15] MEDS: SODIUM CHLORIDE 0.9% 10ML SYR (RAD ONLY) 10 ML IV (08:29)
== END 2023-09-15 23:59 ==
LOC: RAD 07:58
PROVIDERS: PCP Internal Medicine Adolescent Medicine; Visit Provider Nurse Practitioner Family
DX: R10.32 Left lower quadrant pain (principal); R59.0 Localized enlarged lymph nodes
CPT/HCPCS: 74177; Q9967

== ENCOUNTER 2023-09-16 13:12 | Outpatient (POV) | payer MEDICARE, SELFPAY | END 2023-09-16 23:59 | disposition home or self-care (01) | LOC: SC 13:12 | PROVIDERS: PCP Nurse Practitioner Family; Visit Provider Dermatology | DX: Z00.00 Encounter for general adult medical examination without abnormal findings (principal) ==

== ENCOUNTER 2023-09-30 10:03 | Outpatient (POV) | payer MEDICARE, SELFPAY | END 2023-09-30 23:59 | disposition home or self-care (01) | LOC: SC 10:04 | PROVIDERS: PCP Nurse Practitioner Family; Visit Provider Dermatology | DX: Z00.00 Encounter for general adult medical examination without abnormal findings (principal) ==

== ENCOUNTER 2024-07-07 07:50 | Outpatient (CLI) | payer MEDICARE, SELFPAY | END 2024-07-07 23:59 | disposition home or self-care (01) | LOC: RAD 07:52 | PROVIDERS: PCP Nurse Practitioner Family; Visit Provider Nurse Practitioner Family | DX: R41.3 Other amnesia (principal) ==

== ENCOUNTER 2024-09-16 12:15 | Outpatient (CLI) | payer MEDICARE, SELFPAY ==
--- NOTE | 2024-09-16 12:21 | XR_ITS ---
FINAL REPORT CLINICAL HISTORY: ACUTE COUGH COMPARISON: None FINDINGS: PA and lateral views of the chest were obtained. There is abnormal density within the right lung base compatible with pleural effusion and right lower lobe collapse or pneumonia. The left lung is clear. The patient is status post CABG. Moderate cardiomegaly is noted. IMPRESSION: Right pleural effusion with right lower lobe collapse and/or pneumonia. Close chest imaging follow-up recommended. Reviewed, Interpreted and Dictated by Naomi Leach MD Transcribed by Cortney Garcia Authenticated and [facility]
[2024-09-16 15:03] LABS: Hemoglobin A1C 7.8 % (4.0-6.0)
[2024-09-16 15:13] LABS: Basophils % 0.3 % (0.1-2.0); Eosinophils # 0.1 K/mm3 (0.0-0.4); Eosinophils % 1.6 % (0.1-12.0); Hematocrit 49.1 % (42.0-52.0); Hemoglobin 16.6 g/dL (14.1-18.0); Lymphocytes # 2.5 K/mm3 (0.7-4.5); Lymphocytes % 36.6 % (10-50); Mean Corpuscular HGB Conc 33.8 g/dL (31.8-35.4); Mean Corpuscular Volume 94.8 fl (80-94); Mean Platelet Volume 10.9 fl (7.4-10.4); Monocytes # 0.9 K/mm3 (0.1-1.0); Monocytes % 13.4 % (1.7-9.3); Neutrophils # 3.3 K/mm3 (1.8-7.8); Neutrophils % 47.8 % (37.0-80.0); Platelet Count 210 K/mm3 (142-424); Red Blood Count 5.18 M/mm3 (4.60-6.20); Red Cell Distribution Width 13.7 % (11.5-17.5); White Blood Count 6.8 K/mm3 (4.8-10.8)
[2024-09-16 15:14] LABS: Alanine Aminotransferase 22 U/L (12-78); Albumin Level 4.5 g/dl (3.5-5.0); Albumin/Globulin Ratio 1.7 (1.1-1.8); Alkaline Phosphatase 69 U/L (38-126); Anion Gap 12.6 mEq/L (5-15); Aspartate Amino Transferase 30 U/L (17-59); Bilirubin,Total 1.4 mg/dl (0.2-1.3); Blood Urea Nitrogen 11 mg/dl (9-20); Calcium 9.2 mg/dl (8.4-10.2); Carbon Dioxide 28 mmol/L (22.0-30.0); Chloride 104 mmol/L (98-107); Estimated Glomerular Filt Rate 108 ml/min (>60); GFR (African American) 131 ML/MIN (>60); Globulin 2.7 g/dL (1.3-3.2); Glucose 239 mg/dl (74-100); Magnesium 1.9 mg/dl (1.6-2.3); Potassium 4.6 mmoL/L (3.5-5.1); Sodium 140 mmol/L (136-145); Total Protein,Serum 7.2 g/dl (6.3-8.2)
[2024-09-16 15:23] LABS: NT Pro Brain Natriuretic Pep. 2440 pg/mL (0-450)
== END 2024-09-16 23:59 | disposition home or self-care (01) ==
LOC: RAD 12:17
PROVIDERS: PCP Nurse Practitioner Family; Visit Provider Nurse Practitioner Family
DX: R05.1 Acute cough (principal); E11.29 Type 2 diabetes mellitus with other diabetic kidney complication; R60.0 Localized edema
CPT/HCPCS: 36415; 71046; 80053; 83036; 83735; 83880; 85025

== ENCOUNTER 2024-09-17 13:09 | Outpatient (CLI) | payer MEDICARE, SELFPAY ==
--- NOTE | 2024-09-17 | CA_ITS ---
APPROVED REPORT EXAM: Comprehensive 2D, Doppler, and color-flow Echocardiogram Clinical Esthetician: Neelam Amador RT(R) Ht: 5 ft 10 in Wt: 215lbs BSA: 2.15 BP: 195/98 mmHg Indications: SOB, ex smoker, edema, HTN, DM, fatigue, hyperlipidemia, hx CABG, CAD, hx AFIB 2D Dimensions LVEF (Sahu's) 40.90 % M: 52 - 72 LV Volume 126.40 mL M: 62 - 150 LV Volume Index 58.8 mL/m2 M: 34 - 74 LA Volume 45.40 mL LA Volume Index 21.12 mL/m2 (M/F) 16-34 EF AP4 32.80 % EF AP2 47.1 % EF BP 40.9 % GL Strain -11.8 % M-Mode Dimensions RVDd 3.97 cm (0.9-2.6) LA Diam 4.13 cm (1.9-4.0) LVDd 4.46 cm (3.5-5.7) LVDs 3.52 cm (3.5-5.7) IVSd 1.11 cm (0.6-1.1) PWd 1.11 cm (0.6-1.1) EF (Teich) 43.00% FS 21.10% EDV (Teich) 90.50 mL ESV (Teich) 51.60 mL LV Diastology E Decel Time 150 (160-240 msec) E/A Ratio 2.9 Aortic Valve [place] Index 0.40 cm2/m2 AoV Peak Bartolome. 274.0 (50-130 cm/s) AO Peak GR. 30.10 mmHg AO Mean GR. 14.90 (<5 mmHg) AO VTI 58.4 (18-25 cm) [place] (VTI) 0.87 (2.5-4.5 cm2) Mitral Valve MV E Max Bartolome. 106.0 (40-130 cm/s) MV A Velocity 36.0 (40-130 cm/s) E/A Ratio 2.97 MV PHT 44.0 ms Tricuspid Valve TR P. Velocity 328.00 cm/s RAP Estimate 15.00 mmHg RVSP 58.00 mmHg Left Ventricle The left ventricle is normal size. The left ventricular systolic function is moderately reduced. There is increased LV wall thickness. There is moderate global hypokinesis. The septum is asynchronous. Diastolic function is indeterminate. LVEF is 35-40%. Right Ventricle Right ventricle is mildly dilated. Right ventricle is mildly hypokinetic. Atria Left atrium is mildly dilated. Right atrium is mildly dilated. There is no Doppler evidence of interatrial shunt. Aortic Valve Aortic valve is mildly thickened. Severe, low-flow, low-gradient aortic stenosis is present. [place] by continuity equation is 0.8 cm2. Peak velocity 2.8 m/s. Mean AV gradient 12 mmHg. Max AV gradient 25 mmHg. SVi= 25 ml/m2. DI=0.25. Mild aortic regurgitation. Mitral Valve The mitral valve leaflets are mildly thickened. Mild mitral regurgitation. No evidence of mitral valve stenosis. Tricuspid Valve Tricuspid valve is grossly normal in structure and function. Moderate tricuspid regurgitation. RVSP is 40-45 mmHg. Pulmonic Valve The pulmonary valve is normal in structure. Trace pulmonic regurgitation. Great Vessels The aortic root is normal in size. IVC is normal in size and collapses >50% with inspiration. Pericardium There is no pericardial effusion. Other Information Study Quality: Fair Conclusion Moderate reduction in LV systolic function (LVEF 35-40%). Mild RV dilation with mild reduction in RV function. Biatrial dilation. Severe, low-flow, low-gradient ([place] by continuity equation is 0.8 cm2. Peak velocity 2.8 m/s. Mean AV gradient 12 mmHg. Max AV gradient 25 mmHg. SVi= 25 ml/m2. DI=0.25). Moderate TR. Mild MR, mild AI. Elevated RVSP 40-45 mmHg. Compared to prior study from 06/2023, the reduction in LV systolic function is new. The severity is now worse. Electronically signed by : Nimo Kat MD 09/18/2024 22:53:30
--- NOTE | 2024-09-17 13:15 | CT_ITS ---
FINAL REPORT TECHNIQUE: Axial CT without contrast. CLINICAL HISTORY: SOA FINDINGS: CT CHEST WITHOUT CONTRAST This study was performed with techniques to keep radiation doses as low as reasonably achievable, (ALARA). Individualized dose There is minimal patchy density in the periphery of the left lung compatible with pneumonia. There is right lower lobe collapse. Mild right middle lobe atelectasis is identified. There is moderate right effusion and tiny left effusion. Scattered borderline enlarged right paratracheal lymph nodes are identified, largest measures 12 mm. There is mild cardiomegaly. Limited images of the upper abdomen are unremarkable. IMPRESSION: 1. Moderate right effusion with right lower lobe collapse and/or pneumonia. 2. Mild left lower lobe pneumonia with small left effusion. This study was performed using automated techniques to achieve radiation exposure as low as reasonably achievable Reviewed, Interpreted and Dictated by Naomi Leach MD Transcribed by Socorro Blair Authenticated and . [facility]
== END 2024-09-17 23:59 | disposition home or self-care (01) ==
LOC: RAD 13:10
PROVIDERS: PCP Nurse Practitioner Family; Visit Provider Nurse Practitioner Family
DX: I51.7 Cardiomegaly (principal); I35.2 Nonrheumatic aortic (valve) stenosis with insufficiency; I34.0 Nonrheumatic mitral (valve) insufficiency; I36.1 Nonrheumatic tricuspid (valve) insufficiency; J90 Pleural effusion, not elsewhere classified; R06.02 Shortness of breath; R79.89 Other specified abnormal findings of blood chemistry
CPT/HCPCS: 71250; 93306

== ENCOUNTER 2024-09-23 10:20 | Outpatient (CLI) | payer MEDICARE, SELFPAY ==
[2024-09-23 11:26] LABS: Chloride 97 mmol/L (98-107); Potassium 3.9 mmoL/L (3.5-5.1); Sodium 136 mmol/L (136-145)
[2024-09-23 11:29] LABS: Anion Gap 10.9 mEq/L (5-15); Blood Urea Nitrogen 13 mg/dl (9-20); Carbon Dioxide 32 mmol/L (22.0-30.0); Estimated Glomerular Filt Rate 93 ml/min (>60); GFR (African American) 112 ML/MIN (>60)
[2024-09-23 11:30] LABS: Calcium 9.1 mg/dl (8.4-10.2); Glucose 300 mg/dl (74-100)
[2024-09-23 11:38] LABS: NT Pro Brain Natriuretic Pep. 1700 pg/mL (0-450)
== END 2024-09-23 23:59 | disposition home or self-care (01) ==
LOC: LAB 10:23
PROVIDERS: PCP Nurse Practitioner Family; Visit Provider Physician Assistant
DX: I21.19 ST elevation (STEMI) myocardial infarction involving other coronary artery of inferior wall (principal); I35.0 Nonrheumatic aortic (valve) stenosis; I25.10 Atherosclerotic heart disease of native coronary artery without angina pectoris; Z95.1 Presence of aortocoronary bypass graft
CPT/HCPCS: 36415; 80048; 83880

== ENCOUNTER 2024-10-04 07:43 | Day surgery (SDC) | payer MEDICARE, SELFPAY ==
[2024-10-04] VITALS (14 sets, daily range): BP systolic 94–170; BP diastolic 45–97; PULSE 62–88; RESP 16–20; O2SAT 90–98; BMI 29.9
--- NOTE | 2024-10-04 07:20 | IR_ITS ---
APPROVED REPORT Patient Location: Outpatient Rn Concurrent Review: Aki Gutierrez, RT (R) PROCEDURES Selective coronary angiogram Selective engagement of the saphenous vein graft to the right coronary artery Selective engagement of the saphenous vein graft to the circumflex artery Drug-eluting stent deployment to the saphenous vein graft supplying the circumflex artery INDICATION Coronary artery disease, Severe aortic stenosis, Preoperative evaluation for TAVR, Informed consent was obtained prior to the procedure. COMPLICATIONS NONE Estimated Blood Loss: LESS THAN 10 ML TECHNIQUE One percent lidocaine used to anesthetize the right anterior aspect of the wrist. The right radial artery was accessed via the Seldinger technique. A 6 Romansh sheath was placed in the right radial artery. 2.5 mg of Verapamil, 800 mcg of nitroglycerin, 1mg Lidocaine and 5000 U Heparin were given through the arterial sheath. A JL 3 guide catheter was used to perform selective coronary angiography as well as selective engagement of the saphenous vein graft to the circumflex artery and selective engage in the saphenous vein graft to the right coronary artery. At the end the diagnostic angiogram the catheter was placed in the saphenous vein graft supplying the circumflex artery followed by Choice PT extra-support wire. A 4.5 x 34 mm Vignesh frontier stent was deployed at 18 berta reducing the stenosis. An additional 4.5 x 12 mm Vignesh frontier stent was placed distal to the for stent yet still overlapping and deployed at 20 berta. The balloon was brought back and deployed at 24 berta to post dilate a stenotic area. Excellent angiographic results were obtained with normal flow down the vein graft before and after the procedure. At the end the procedure the apparatus was removed the sheath was removed and hemostasis was achieved using TR banding patient was transferred to the postop putting in stable condition ANGIOGRAPHIC RESULTS The left main artery Has a distal 10% concentric stenosis The left anterior descending artery Has stents in the proximal segment which are widely patent with minimal 20% in-stent restenosis. There is additional 20 and 30% stenosis distal to the first and second septal human resources benefits administrator. There is an additional 40% concentric stenosis just proximal to a second medium size diagonal artery. There is additional 30% stenosis distal to the second obtuse marginal artery. The LAD is large and wraps the apex The circumflex artery Occluded at mid vessel The right coronary artery Proximally occluded with no angiographic evidence of distal collateralization The M[place] ventriculogram reveals Not performed The left ventricular end-diastolic pressure Not measured RIVERS graft is known to be patent to the chest wall Saphenous vein graft to the circumflex artery has a mid vessel concentric 70 to 80% stenosis followed by 30 to 40% stenosis Saphenous vein graft to the right coronary artery is ostially occluded IMPRESSION Coronary disease as described above Severe disease in the saphenous vein graft supplying the circumflex artery with successful stenting reducing lesion to 0% with 2 contiguous drug-eluting stents PLAN 1. Dual antiplatelet therapy 2. LDL less than 55 to achieve that high intensity statin 3. Further evaluation for TAVR at [facility] 4. Avoidance of tobacco products 5. Risk factor modification 6. Recommend not performing cardiac rehabilitation until TAVR procedure Electronically signed by : Jose R Haile MD 10/04/2024 10:48:30
[2024-10-04 08:38] LABS: Basophils % 0.3 % (0.1-2.0); Eosinophils # 0.1 K/mm3 (0.0-0.4); Eosinophils % 1.4 % (0.1-12.0); Hematocrit 55.8 % (42.0-52.0); Lymphocytes # 3.1 K/mm3 (0.7-4.5); Lymphocytes % 34.9 % (10-50); Mean Corpuscular HGB Conc 34.2 g/dL (31.8-35.4); Mean Corpuscular Volume 90.4 fl (80-94); Mean Platelet Volume 10.9 fl (7.4-10.4); Monocytes % 11.3 % (1.7-9.3); Neutrophils # 4.5 K/mm3 (1.8-7.8); Platelet Count 232 K/mm3 (142-424); Red Blood Count 6.17 M/mm3 (4.60-6.20); Red Cell Distribution Width 12.3 % (11.5-17.5); White Blood Count 8.7 K/mm3 (4.8-10.8)
[2024-10-04 08:56] LABS: Chloride 98 mmol/L (98-107); Potassium 4.1 mmoL/L (3.5-5.1); Sodium 135 mmol/L (136-145)
[2024-10-04 08:59] LABS: Anion Gap 12.1 mEq/L (5-15); Blood Urea Nitrogen 21 mg/dl (9-20); Calcium 9.8 mg/dl (8.4-10.2); Carbon Dioxide 29 mmol/L (22.0-30.0); Creatinine Clearance Estimated 78 mL/min (50-200); Estimated Glomerular Filt Rate 81 ml/min (>60); GFR (African American) 98 ML/MIN (>60); Glucose 236 mg/dl (74-100)
[2024-10-04 09:13] LABS: Hemoglobin 19.2 g/dL (14.1-18.0)
[2024-10-04] MEDS: diphenhydrAMINE 50MG/ML VIAL 50 MG IV (10:01)
[2024-10-04] MEDS: HEPARIN 1,000 UNITS/500ML NS (CATH LAB) 3000 UNIT IV (10:01)
[2024-10-04] MEDS: LIDOCAINE 1% 10ML MDV 20 ML IJ (10:01)
[2024-10-04] MEDS: MIDAZOLAM HCL 1MG/ML 5ML VIAL 1 MG IV (10:02)
[2024-10-04] MEDS: 0.9 % SODIUM CHLORIDE 500 ML 25 ML IV (10:02)
[2024-10-04] MEDS: FENTANYL 100MCG/2ML VIAL 50 MCG IV (10:02)
[2024-10-04] MEDS: NITROGLYCERIN 800MCG/8ML SYR (CATH LAB) 800 MCG IA (10:30)
[2024-10-04] MEDS: VERAPAMIL 2.5MG/ML 2ML VIAL 2.5 MG IV (10:31)
[2024-10-04] MEDS: HEPARIN 1,000 UNITS/ML 10ML VIAL (CATH LAB) 10000 UNIT IV (10:31)
--- NOTE | 2024-10-04 10:59 | SUR.PHASEII ---
Verified with that patient did have his morning dose of plavix
[2024-10-04] MEDS: IOPAMIDOL-370 (76%);100ML BOTTLE 110 ML IV (13:31)
[2024-10-04 13:36] LABS: CATHL Activated Clotting Time > 400 SEC (74-125)
== END 2024-10-04 14:31 | disposition home or self-care (01) ==
PROVIDERS: PCP Nurse Practitioner Family; Visit Provider Internal Medicine
DX: I25.10 Atherosclerotic heart disease of native coronary artery without angina pectoris (principal); I35.0 Nonrheumatic aortic (valve) stenosis; I48.91 Unspecified atrial fibrillation; E78.5 Hyperlipidemia, unspecified; E11.9 Type 2 diabetes mellitus without complications; I11.0 Hypertensive heart disease with heart failure; I50.20 Unspecified systolic (congestive) heart failure; Z95.1 Presence of aortocoronary bypass graft; Z79.899 Other long term (current) drug therapy; Z79.84 Long term (current) use of oral hypoglycemic drugs; Z79.82 Long term (current) use of aspirin; Z79.01 Long term (current) use of anticoagulants
CPT/HCPCS: 80048; 85025; 85347; 92937; 93455; 99152; 99153; C1725; C1769; C1874; C9604; J1200; J1644; J3010; Q9967

== ENCOUNTER 2024-10-06 07:47 | Outpatient (CLI) | payer MEDICARE, SELFPAY ==
[2024-10-06 08:25] LABS: Basophils % 0.5 % (0.1-2.0); Eosinophils # 0.2 K/mm3 (0.0-0.4); Eosinophils % 1.8 % (0.1-12.0); Hematocrit 55.7 % (42.0-52.0); Lymphocytes % 34.3 % (10-50); Mean Corpuscular HGB Conc 33.6 g/dL (31.8-35.4); Mean Corpuscular Volume 92.2 fl (80-94); Mean Platelet Volume 11.2 fl (7.4-10.4); Monocytes # 0.9 K/mm3 (0.1-1.0); Monocytes % 10.5 % (1.7-9.3); Neutrophils # 4.7 K/mm3 (1.8-7.8); Neutrophils % 52.7 % (37.0-80.0); Platelet Count 207 K/mm3 (142-424); Red Blood Count 6.04 M/mm3 (4.60-6.20); Red Cell Distribution Width 12.3 % (11.5-17.5); White Blood Count 8.9 K/mm3 (4.8-10.8)
[2024-10-06 08:35] LABS: Chloride 103 mmol/L (98-107); Potassium 4.6 mmoL/L (3.5-5.1); Sodium 137 mmol/L (136-145)
[2024-10-06 08:38] LABS: Anion Gap 11.6 mEq/L (5-15); Blood Urea Nitrogen 20 mg/dl (9-20); Calcium 9.6 mg/dl (8.4-10.2); Carbon Dioxide 27 mmol/L (22.0-30.0); Estimated Glomerular Filt Rate 93 ml/min (>60); GFR (African American) 112 ML/MIN (>60); Glucose 211 mg/dl (74-100)
[2024-10-06 08:49] LABS: NT Pro Brain Natriuretic Pep. 709 pg/mL (0-450)
[2024-10-06 08:55] LABS: Hemoglobin 18.8 g/dL (14.1-18.0)
== END 2024-10-06 23:59 | disposition home or self-care (01) ==
LOC: LAB 07:48
PROVIDERS: Physician Assistant; PCP Nurse Practitioner Family; Visit Provider Internal Medicine
DX: I50.20 Unspecified systolic (congestive) heart failure (principal); I25.10 Atherosclerotic heart disease of native coronary artery without angina pectoris; E11.9 Type 2 diabetes mellitus without complications
CPT/HCPCS: 36415; 80048; 83880; 85025

== ENCOUNTER 2024-10-25 09:39 | Outpatient (CLI) | payer MEDICARE, SELFPAY ==
[2024-10-25 10:47] LABS: Anion Gap 9.6 mEq/L (5-15); Blood Urea Nitrogen 30 mg/dl (9-20); Calcium 9.6 mg/dl (8.4-10.2); Carbon Dioxide 32 mmol/L (22.0-30.0); Chloride 97 mmol/L (98-107); Estimated Glomerular Filt Rate 72 ml/min (>60); GFR (African American) 87 ML/MIN (>60); Glucose 271 mg/dl (74-100); Potassium 4.6 mmoL/L (3.5-5.1); Sodium 134 mmol/L (136-145)
== END 2024-10-25 23:59 | disposition home or self-care (01) ==
LOC: LAB 09:41
PROVIDERS: PCP Nurse Practitioner Family; Visit Provider Physician Assistant
DX: I50.20 Unspecified systolic (congestive) heart failure (principal)
CPT/HCPCS: 36415; 80048

== ENCOUNTER 2024-11-09 09:44 | Outpatient (CLI) | payer MEDICARE, SELFPAY ==
[2024-11-09 10:35] LABS: Anion Gap 12.2 mEq/L (5-15); Blood Urea Nitrogen 22 mg/dl (9-20); Calcium 9.5 mg/dl (8.4-10.2); Carbon Dioxide 28 mmol/L (22.0-30.0); Chloride 101 mmol/L (98-107); Estimated Glomerular Filt Rate 72 ml/min (>60); GFR (African American) 87 ML/MIN (>60); Glucose 267 mg/dl (74-100); Potassium 4.2 mmoL/L (3.5-5.1); Sodium 137 mmol/L (136-145)
== END 2024-11-09 23:59 | disposition home or self-care (01) ==
LOC: LAB 09:48
PROVIDERS: PCP Nurse Practitioner Family; Visit Provider Physician Assistant
DX: I50.20 Unspecified systolic (congestive) heart failure (principal); E11.59 Type 2 diabetes mellitus with other circulatory complications
CPT/HCPCS: 36415; 80048

== ENCOUNTER 2024-11-16 11:12 | Outpatient (CLI) | payer MEDICARE, SELFPAY ==
--- NOTE | 2024-11-16 11:17 | XR_ITS ---
FINAL REPORT CLINICAL HISTORY: cough,CHF COMPARISON: 09/16/2024 FINDINGS: 2 views of the chest were obtained . The heart is normal in size. The mediastinum is within normal limits. There is dense right lower lobe consolidation and atelectasis. There is no pneumothorax. Osseous structures are unremarkable. IMPRESSION: Dense right lower lobe consolidation and atelectasis. Reviewed, Interpreted and Dictated by Galileo Rivas MD Transcribed by Mini Ramsey Authenticated and [facility]
== END 2024-11-16 23:59 | disposition home or self-care (01) ==
LOC: RAD 11:14
PROVIDERS: PCP Nurse Practitioner Family; Visit Provider Physician Assistant
DX: R05.9 Cough, unspecified (principal); I50.20 Unspecified systolic (congestive) heart failure
CPT/HCPCS: 71046

== ENCOUNTER 2024-11-25 16:39 | Emergency (ER) | payer MEDICARE, SELFPAY ==
[2024-11-25 17:13] VITALS: BP 138/67; PULSE 68; RESP 20; TEMP 36.6; O2SAT 95; BMI 25.8
[2024-11-25 17:56] LABS: Microscopic, Urine URINE MICROSCOPIC (MICROSCOPIC)
--- NOTE | 2024-11-25 17:57 | PC.NURSE ---
pt rounded on no needs at this time.
[2024-11-25 17:59] LABS: Basophils % 0.4 % (0.1-2.0); Eosinophils # 0.1 Kmm3 (0.0-0.4); Eosinophils % 1.4 % (0.1-12.0); Hematocrit 51.8 % (42.0-52.0); Hemoglobin 17.6 g/dL (14.1-18.0); Immature Granulocytes # 0.03 10^3uL; Immature Granulocytes % 0.4 %; Lymphocytes # 3.1 K/mm3 (0.7-4.5); Lymphocytes % 38.5 % (10-50); Mean Corpuscular Hemoglobin 30.7 pg (27.0-31.2); Mean Corpuscular Volume 90.4 fl (80-94); Mean Platelet Volume 10.7 fl (7.4-10.4); Monocytes % 11.8 % (1.7-9.3); Neutrophils # 3.9 K/mm3 (1.8-7.8); Neutrophils % 47.5 % (37.0-80.0); Nucleated Red Blood Cells # 0 10^3/uL; Nucleated Red Blood Cells % 0 %; Platelet Count 203 K/mm3 (142-424); Red Blood Count 5.73 M/mm3 (4.60-6.20); Red Cell Distribution Width 12.8 % (11.5-17.5); Red Cell Distribution Width-SD 42.1 fL; White Blood Count 8.1 K/mm3 (4.8-10.8)
[2024-11-25 18:13] LABS: Alanine Aminotransferase 28 U/L (12-78); Albumin Level 4.6 g/dl (3.5-5.0); Albumin/Globulin Ratio 1.6 (1.1-1.8); Alkaline Phosphatase 84 U/L (38-126); Anion Gap 12.3 mEq/L (5-15); Aspartate Amino Transferase 30 U/L (17-59); Bilirubin,Total 0.7 mg/dl (0.2-1.3); Blood Urea Nitrogen 33 mg/dl (9-20); Calcium 9.2 mg/dl (8.4-10.2); Carbon Dioxide 27 mmol/L (22.0-30.0); Chloride 103 mmol/L (98-107); Creatinine Clearance Estimated 67 mL/min (50-200); Estimated Glomerular Filt Rate 72 ml/min (>60); GFR (African American) 87 ML/MIN (>60); Globulin 2.9 g/dL (1.3-3.2); Glucose 212 mg/dl (74-100); Potassium 4.3 mmoL/L (3.5-5.1); Sodium 138 mmol/L (136-145); Total Protein,Serum 7.5 g/dl (6.3-8.2)
[2024-11-25 18:24] VITALS: PULSE 66; O2SAT 93
[2024-11-25 18:25] LABS: Appearance,Urine CLEAR (Clear); Bilirubin,Urine Negative (Negative); Blood, Urine Negative (Negative); Color,Urine YELLOW (Yellow); Glucose,Urine (UA) 3+ (Negative); Ketones,Urine Negative (Negative); Leukocyte Esterase,Urine Negative (Negative); Nitrate,Urine Negative (Negative); Protein,Urine Negative (Negative); Urobilinogen,Urine 0.2 EU/dl (0.2)
--- NOTE | 2024-11-25 18:28 | CT_ITS ---
PROCEDURE INFORMATION: Exam: CT Abdomen And Pelvis With Contrast Exam date and time: 11/25/2024 7:01 PM Age: 79 years old Clinical indication: Abdominal pain; Additional info: Abd pain rlq TECHNIQUE: Imaging protocol: Computed tomography of the abdomen and pelvis with contrast. Radiation optimization: All CT scans at this facility use at least one of these dose optimization techniques: automated exposure control; mA and/or kV adjustment per patient size (includes targeted exams where dose is matched to clinical indication); or iterative reconstruction. Contrast material: ISOVUE; Contrast volume: 75 ml; Contrast route: IV; COMPARISON: CT ABDOMEN PELVIS W CON 09/15/2023 8:20 AM FINDINGS: Tubes, catheters and devices: Loop recorder device within the left anterior chest wall. Lungs: Focal consolidation with air bronchograms within the anterior basal segment right lower lobe, likely pneumonia. Pleural spaces: Small-size right pleural effusion with associated rounded atelectasis. Heart: Mild four-chamber cardiac enlargement. Liver: Normal. Gallbladder and biliary ducts: Cholelithiasis. Pancreas: Normal. Spleen: Splenic calcifications, compatible with prior granulomatous disease. Adrenal glands: Normal. No mass. Kidneys and ureters: Normal. Stomach and bowel: Moderate amount of stool throughout the colon, compatible with constipation. No obstruction. Colonic diverticulosis. Appendix: Appendix normal. Intraperitoneal space: Unremarkable. No free air. No significant fluid collection. Vasculature: Atherosclerotic disease of the visualized thoracic aorta. Mixed atherosclerotic plaque within the proximal SMA, causing approximately 60% luminal narrowing (series 1002, image 58). Phleboliths within the pelvis. Lymph nodes: Unremarkable. No enlarged lymph nodes. Urinary bladder: Unremarkable as visualized. Reproductive: Unremarkable as visualized. Bones/joints: Changes of prior sternotomy and CABG. Bilateral total hip arthroplasties. Multilevel thoracolumbar spine degenerative disc space narrowing and osteophyte formation. Soft tissues: Normal. IMPRESSION: 1. Small-size right pleural effusion with associated rounded atelectasis. 2. Focal consolidation with air bronchograms within the anterior basal segment right lower lobe, likely pneumonia. Recommend follow-up. 3. Moderate amount of stool throughout the colon, compatible with constipation. No obstruction.
[2024-11-25 18:43] LABS: WBC,Urine Occasional #/hpf (0-3)
[2024-11-25 18:51] VITALS: BP 144/82; PULSE 64; O2SAT 96
--- NOTE | 2024-11-25 18:52 | ED_ITS ---
<Statement entered by Josephine Blanco MD - 11/25/24 21:11> I was consulted by the KOJO, and we discussed the complexity of problems being addressed. I approved the treatment and management plan for this patient's care in the emergency department, thus performing a substantive portion of the medical decision making. Josephine Blanco MD Discharge Plan Disposition Patient Disposition: Home, Self-Care Prescriptions Prescriptions: No Action pantoprazole 40 mg tablet,delayed release (DR/EC) 40 mg PO DAILY PRN Jardiance 25 mg tablet 25 mg PO DAILY metoprolol succinate 50 mg tablet extended release 24 hr 50 mg PO DAILY atorvastatin 40 mg tablet 40 mg PO ONCE clopidogrel [Plavix] 75 mg tablet 75 mg PO DAILY Qty: 90 2RF Eliquis 5 mg tablet 5 mg PO BID Qty: 180 3RF potassium chloride [Klor-Con M20] 20 mEq tablet,ER particles/crystals 40 meq PO DAILY 30 Days Qty: 60 2RF furosemide 80 mg tablet 80 mg PO DAILY Qty: 30 2RF nitroglycerin 0.4 mg tablet, sublingual 0.4 mg SUBLINGUAL Q5-15M PRN (Reason: chest pain) Qty: 30 5RF Rx Instructions: take one tab sublingual for chest pain, may repeat every 5 minutes, max three tabs Entresto 24-26 mg tablet 1 tab PO BID 90 Days Qty: 180 2RF metformin 500 MG tablet 1,000 mg PO BID glimepiride 4 MG tablet 4 mg PO DAILY Referrals Follow up/Referrals: Malissa Kilgore APRN [Primary Care Provider] - See instructions Activity Restrictions/Add. Instructions Additional Instructions/Restrictions: Today you were evaluated in the emergency department and diagnosed with constipation. 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 Please follow-up with your PCP within 3 days. Please return to the ED for any worsening of condition. Increase your fluid intake. Clinical Impressions Clinical Impression: Constipation Qualifiers: Constipation type: unspecified constipation type Qualified Code(s): K59.00 - Constipation, unspecified Instructions Patient Instructions: DI for Acute Abdominal Pain Print Language Print Language: Malay Discharge ED Provider: Josephine Blanco General Adult HPI General Chief complaint: Abdominal Pain Stated complaint: Right sided pain,denies N/V Time Seen by Provider: 11/25/24 18:22 Mode of Arrival: Ambulatory Source of Information: Patient Description of Symptoms (Recalled from ER Triage Doc. by RN): pt cc is rlq pain that started today with no n/v/d, pt denies any issue with urination or bowel mvmts and is in no immediate discomfort History of Present Illness HPI narrative: patient is an 79-year-old male PMHx HFrEF, aortic stenosis (scheduled for valve replacement), hypertension, heart block, diabetes, coronary artery bypass grafting, history of cardiac arrest with V-fib, history of STEMI, hyperlipidemia, CAD who presents to the ED for right lower quadrant pain that started this afternoon. Related Data Home Medications ?Medication ?Instructions ?Recorded ?Confirmed glimepiride 4 mg tablet 4 mg PO DAILY Diabetes 03/31/18 11/16/24 metformin 500 mg tablet 1,000 mg PO BID Diabetes 03/31/18 11/16/24 pantoprazole 40 mg tablet,delayed 40 mg PO DAILY PRN 02/02/19 11/16/24 release empagliflozin 25 mg tablet 25 mg PO DAILY 09/21/24 11/16/24 (Jardiance) atorvastatin 40 mg tablet 40 mg PO ONCE 10/26/24 11/16/24 metoprolol succinate 50 mg 50 mg PO DAILY 10/26/24 11/16/24 tablet,extended release 24 hr Previous Rx's ?Medication ?Instructions ?Recorded clopidogrel 75 mg tablet (Plavix) 75 mg PO DAILY #90 tabs 07/26/19 apixaban 5 mg tablet (Eliquis) 5 mg PO BID #180 tabs 10/18/24 furosemide 80 mg tablet 80 mg PO DAILY #30 tabs 10/21/24 potassium chloride 20 mEq 40 meq (2 x 20 mEq) PO DAILY 30 10/21/24 tablet,extended days #60 tabs release(part/cryst) (Klor-Con M) nitroglycerin 0.4 mg sublingual 0.4 mg sublingual Q5-15M PRN chest 10/27/24 tablet pain #30 tabs sacubitril 24 mg-valsartan 26 mg 1 tab PO BID 90 days #180 tabs 11/22/24 tablet (Entresto) Allergies Allergy/AdvReac Type Severity Reaction Status Date / Time gabapentin AdvReac Mild Dizziness Verified 11/16/24 10:51 [facility] Disclaimer: The information contained in this section may have been updated after the patient was seen, as this information can be updated by other users. Medical History HFrEF (heart failure with reduced ejection fraction) Severe aortic stenosis Afib Pre-syncope Dizziness Surgical History S/P CABG x 3 Family History Other Family history of cancer Family history of myocardial infarction Social History Smoking Status: Never smoker second hand exposure: No alcohol intake: never substance use type: denies use current occupational status: retired Travel in the last 8 weeks?: Inside the [facility] household members: spouse housing: house current occupational exposures/hazards: No caffeine: No Have you lived/traveled outside [place] in past 30 days?: No Contact w/someone who lives/traveled outside [place] past 30 days?: No Exposure to someone with infectious disease in past 14 days?: No Do you have a fever (greater than 100.4 F or 38 C)?: No Have you tested positive for COVID-19?: No Exposed to someone with COVID-19 in past 14 days?: No Do you have a sore throat?: No Do you have a cough?: No Do you have any weakness?: No Do you have any diarrhea?: No Are you experiencing any unusual bleeding?: No Do you have any muscle aches/pain?: No Do you have any abdominal pain?: No Are you experiencing loss of taste or smell?: No Other Medical History Have you received the Flu Vaccine for this season: Yes Have you received the Pneumonia Vaccine: No ROS Obtained: Yes Systems reviewed as appropriate & no additional complaints except as documented Physical Exam General General appearance: alert and in no apparent distress Head Head exam: atraumatic and normocephalic Eye Eye exam: Present normal appearance and PERRL ENT ENT exam: Present normal exam Neck Neck exam: Present normal inspection Chest Chest inspection: Present normal inspection and symmetric chest wall rise; Absent tenderness Respiratory Respiratory exam: Present normal lung sounds bilaterally Cardiovascular Cardiovascular exam: Present regular rate Abdominal Exam Abdominal exam: Present soft, tenderness (RLQ) and normal bowel sounds Extremities Exam Extremities exam: Present normal inspection and full ROM Back Exam Back exam: Present normal inspection and full ROM Neurological Exam Neurological exam: Present alert and oriented X3 Psychiatric Psychiatric exam: Present normal affect and normal mood Skin Skin exam: Present warm and dry Medical Decision Making Medical Records Screening: Per USPSTF and CDC recommendations, given the prevalence of disease in our region, it is our hospital?s policy to screen for HIV and viral Hepatitis for all patients aged 18 and over and those with ongoing risk factors. Jose Roberto Inquiry Pt receiving controlled substance: No Vital Signs: 11/25/24 17:13 11/25/24 18:24 11/25/24 18:51 Temperature 97.8 F Temperature Source Oral Pulse Rate 66 64 Pulse Rate [Left Radial] 68 Respiratory Rate 20 Blood Pressure 144/82 H Blood Pressure [Right Arm] 138/67 Blood Pressure Mean [Right Arm] 90 Blood Pressure Source Blood Pressure Position 02 Sat by Pulse Oximetry 95 93 L 96 Oxygen Delivery Method Room Air 11/25/24 20:01 Temperature 97.9 F Temperature Source Oral Pulse Rate 62 Pulse Rate [Left Radial] Respiratory Rate 20 Blood Pressure 138/70 Blood Pressure [Right Arm] Blood Pressure Mean [Right Arm] Blood Pressure Source Automatic Cuff Blood Pressure Position Supine 02 Sat by Pulse Oximetry Oxygen Delivery Method Room Air Lab Data Lab Results 11/25/24 17:00: Urine Color Yellow, Urine Appearance Clear, Urine pH 6.0, Ur Specific [place] 1.010, Urine Protein Negative, Urine Glucose (UA) 3+, Urine Ketones Negative, Urine Blood Negative, Urine Nitrate Negative, Urine Bilirubin Negative, Urine Urobilinogen 0.2, Ur Leukocyte Esterase Negative, Urine RBC None, Urine WBC Occasional, Ur Squamous Epith Cells None, Urine Bacteria None 11/25/24 17:47: WBC 8.1, RBC 5.73, Hgb 17.6, Hct 51.8, MCV 90.4, MCH 30.7, MCHC 34.0, RDW 12.8, Plt Count 203, MPV 10.7 H, Neut % (Auto) 47.5, Lymph % (Auto) 38.5, [place] % (Auto) 11.8 H, Eos % (Auto) 1.4, Baso % (Auto) 0.4, Neut # (Auto) 3.9, Lymph # (Auto) 3.1, [place] # (Auto) 1.0, Eos # (Auto) 0.1, Baso # (Auto) 0.0, Sodium 138, Potassium 4.3, Chloride 103, Carbon Dioxide 27, Anion Gap 12.3, BUN 33 H, Creatinine 1.00, Estimated Creat Clear 67, Estimated GFR 72, Est GFR ( Amer) 87, Glucose 212 H, Calcium 9.2, Total Bilirubin 0.7, AST 30, ALT 28, Alkaline Phosphatase 84, Total Protein 7.5, Albumin 4.6, Globulin 2.9, Albumin/Globulin Ratio 1.6 11/25/24 17:47 11/25/24 17:47 Orders (Tests/Meds): ED MEDICATIONS Discontinued Medications Generic Name Dose Route Start Last Admin Trade Name Freq PRN Reason Stop Dose Admin Iopamidol 75 ml 11/25/24 19:02 11/25/24 19:03 Iopamidol-370 (76%);100ml Bottle IV 11/25/24 19:03 75 ml ONCE ONE Administration Sodium Chloride 10 ml 11/25/24 19:02 11/25/24 19:02 Sodium Chloride 0.9% 10ml Syr (Rad Only) IV 11/25/24 19:03 10 ml ONCE ONE Administration ORDERS Category Date Time Status CT abdomen pelvis w con Stat Cat Scan 11/25/24 18:28 Completed Complete Blood Count Auto Diff Stat Lab 11/25/24 17:47 Completed Comprehensive Metabolic Panel Stat Lab 11/25/24 17:47 Completed UA [Urinalysis and Microscopic] Stat Lab 11/25/24 17:00 Completed Medical Decision Narrative: In summary, patient is an 79-year-old male PMHx HFrEF, aortic stenosis (scheduled for valve replacement), hypertension, heart block, diabetes, coronary artery bypass grafting, history of cardiac arrest with V-fib, history of STEMI, hyperlipidemia, CAD who presents to the ED for right lower quadrant pain that started this afternoon. Patient states the pain has been constant however upon arrival to the ED has improved. He denies any radiation of his abdominal pain. Denies any history of abdominal surgeries. Denies nausea or vomiting. Denies fever, chills, body aches, headache, visual disturbances, posterior neck pain, chest pain, shortness of breath, dysuria, diarrhea, constipation. Upon initial evaluation in the ED patient is alert, oriented and cooperative. He is hemodynamically stable. Physical exam is remarkable for soft abdomen, tenderness on the umbilicus and right lower quadrant. Differential diagnosis include appendicitis, ruptured appendicitis, peritonitis, diverticulitis, colitis, constipation, mesenteric adenitis, UTI, among others. Discussed with patient that we will proceed with labs, CT of the abdomen pelvis. Patient denies wanting any pain medication at this time. Hematologic labs reviewed. CBC unremarkable for any leukocytosis, stable H&H. CMP unremarkable for any actionable abnormalities, glucose 212. AST 30, ALT 28. Urinalysis unremarkable for any infectious process. CT of the abdomen pelvis remarkable for constipation and cholelithiasis. No obstruction. Upon reassessment, patient's condition has improved. Discussed with patient diagnosis of constipation and cholelithiasis. Advised patient to use MiraLAX 3 times a day until stools are soft. Advised him to increase his fluid intake. Advised him to follow-up for cholelithiasis although I do not feel that the cholelithiasis is causing his pain today. We discussed [id number] pain relief. Advised him to follow-up with PCP and we discussed return precautions to the ED. Critical Care Critical Care Time Critical Care Time: No
[2024-11-25] MEDS: SODIUM CHLORIDE 0.9% 10ML SYR (RAD ONLY) 10 ML IV (19:02)
[2024-11-25] MEDS: IOPAMIDOL-370 (76%);100ML BOTTLE 75 ML IV (19:03)
[2024-11-25 20:01] VITALS: BP 138/70; PULSE 62; RESP 20; TEMP 36.6
== END 2024-11-25 20:02 | disposition home or self-care (01) ==
PROVIDERS: Emergency Provider Student in an Organized Health Care Education/Training Program; PCP Nurse Practitioner Family
DX: R10.31 Right lower quadrant pain (principal); K59.00 Constipation, unspecified; K80.80 Other cholelithiasis without obstruction
CPT/HCPCS: 74177; 80053; 81001; 85025; 99284; Q9967

== ENCOUNTER 2025-01-05 13:22 | Outpatient (CLI) | payer MEDICARE, SELFPAY ==
--- OUTSIDE RECORDS SUMMARY | 2025-01-05 13:29 | XMS_ITS | Clinical Summary ---
Author Organization [facility] Address [address] [place] [address] Care Team Providers Care Acting Teacher Name Role Phone Senthil Clinton MD Primary Care Provider [phone] Allergies Active Allergy Reactions Criticality Noted Date Comments Gabapentin Other - please docum ent in the comment field Low 10/13/2024 Medications amLODIPine (Norvasc) 10 MG tablet 8 Active Aspirin Buf,CaCarb-MgCa rb-MgO, 81 MG tablet 8 Active atorvastatin (Lipitor) 40 MG tablet 8 Active empagliflozin (Jardiance) 10 MG 8 Active gabapentin (Neurontin) 300 MG capsule 1 po qhs x 3 days, then 1 po BID for 3 days, then 1 po TID thereafter 8 Active glimepiride (Amaryl) 4 MG tablet 8 Active losartan (Cozaar) 100 MG tablet 8 Active metFORMIN (Glucophage) 500 MG tablet 8 Active omeprazole (PriLOSEC) [address] capsule 8 Active ticagrelor (Brilinta) 90 MG tablet 8 Active amiodarone (Pacerone) 200 MG tablet 8 Active apixaban (Eliquis) 5 MG tablet Take 1 tablet by mouth in the morning and 1 tablet before bedtime. Active clopidogrel (Plavix) 75 MG tablet Take by mouth daily. Active empagliflozin (Jardiance) 25 MG Take 1 tablet by mouth in the morning. Active furosemide (Lasix) 80 MG tablet Take 1 tablet by mouth. Active pantoprazole (Protonix) 40 MG EC tablet Take 1 tablet by mouth daily before breakfast. Do not crush, chew, or split. 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 [phone] Luis Antonio Henson MD Severe aortic stenosis (Primary Dx) 10/15/2024 Refill [facility] [address] [phone] Alison Ortega RN 10/15/2024 Travel 10/13/2024 Abstract [facility] [address] [phone] Selena Farah 10/13/2024 Abstract [facility] [address] [phone] Selena Farah 10/13/2024 Orders Only [facility] [address] [phone] Selena Farah 10/12/2024 Telephone [facility] [address] [phone] Selena Farah from Last 3 Months Family History Medical History Relation Name Comments Cancer Father Cancer Mother Relation Name Status Comments Father Mother Social History Tobacco Use Types Packs/Day Years Used Date Smoking Tobacco: Never Smokeless Tobacco: Never Tobacco Cessation:Counseling Given: Not Answered Alcohol Use Standard Drinks/Week Comments Never 0 (1 standard drink = 0.6 oz pur e alcohol) PHQ-2 Answer Date Recorded Patient Health Questionnaire-2 Score 0 10/15/2024 PHQ-9 Answer Date Recorded Patient Health Questionnaire-9 Score 0 10/15/2024 Sex and Gender Information Value Date Recorded Sex Assigned at Not on file Legal Sex Male 5:55 PM EDT Gender Identity Not on file Sexual Orientation Not on file Last Filed Vital Signs Vital Sign Reading Time Taken Comments Blood Pressure 129/82 10/15/2024 10:06 AM EDT Pulse 91 10/15/2024 10:06 AM EDT Temperature - - Respiratory Rate - - Oxygen Saturation 95% 10/15/2024 10:06 AM EDT Inhaled Oxygen Concentration - - Weight 99.8 kg (220 lb) 04/10/2018 8:15 AM EDT Height 175.3 cm (5' 9 ) 10/15/2024 10:06 AM EDT Body Mass Index 31.57 04/10/2018 8:15 AM EDT Plan of Treatment Upcoming Encounters Date Type Department Care Team (Late st Contact Info) Description 04/15/2025 9:00 AM EDT Appointment Cardiac Imaging [address] [place] [address] 04/15/2025 10:30 AM EDT Office Visit [facility] [place] [address] [facility]. [address] [place] [address] Luis Antonio Henson MD [address] [place] [address] Health Maintenance Due Date Last Done Comments [facility]-Depression Screening 1943 [facility]-/Child/Adol SDOH Screenings 1945 [facility]- SDOH Screenings 1961 [facility]-Adult SDOH Screenings 1961 [facility]-DTaP,Tdap,and Td Vaccines (1 - Tdap) 1962 [facility]-Zoster Vaccines (1 of 2) 1993 [facility]-Pneumococcal Vaccine: 50+ Years (2 of 2 - PPSV23) 04/10/2018 04/10/2017 [id number] Vaccine ( season) 2024 05/10/2024, 05/16/2023, 04/10/2022, Additional history exists [facility]-Influenza Vaccine Completed 04/28/2024 , 05/28/2023, 05/01/2022, Additional history exists [facility]-RSV Vaccine: 60+ Years or Completed 06/22/2024 HPV Vaccines Aged Out No longer eligi ble based on patient's age to complete this topic [facility]-HIB Vaccines Aged Out No longer e ligible based on patient's age to complete this topic [facility]-Hepatitis A Vaccines Aged Out No longer eligible based on patient's age to complete this topic [facility]-IPV Vaccines Aged Out No longer e ligible based on patient's age to complete this topic [facility]-Rotavirus Vaccines Aged Out No lo nger eligible based on patient's age to complete this topic Insurance [employer] [place] [id number] [place] [address] [facility] Care Teams Acting Teacher Relationship Specialty Start Date End Date Senthil Clinton MD [address] [place] [address] PCP - General Internal Medicine 10/15/24
--- NOTE | 2025-01-05 13:32 | XR_ITS ---
FINAL REPORT TECHNIQUE: Chest PA & Lateral CLINICAL HISTORY: ACUTE COUGH COMPARISON: 11/16/2024 FINDINGS: 2 views of the chest were performed. Mild cardiomegaly is present. There are changes of a prior midline sternotomy. The mediastinum is within normal limits. There is dense right lower lobe consolidation, more pronounced than seen on the prior exam of 11/16/2024. There is a moderate right pleural effusion seen, new since the prior chest x-ray. There is no pneumothorax. The bony thorax appears intact. IMPRESSION: Worsening consolidation in the right lower lobe, with a moderate right pleural effusion, new since the prior exam. Reviewed, Interpreted and Dictated by Galileo Rivas MD Transcribed by Natividad Hart Authenticated and . [facility]
== END 2025-01-05 23:59 | disposition home or self-care (01) ==
LOC: RAD 13:25
PROVIDERS: PCP Nurse Practitioner Family; Visit Provider Nurse Practitioner Family
DX: J90 Pleural effusion, not elsewhere classified (principal); J18.1 Lobar pneumonia, unspecified organism
CPT/HCPCS: 71046

== ENCOUNTER 2025-01-10 11:27 | Inpatient (IN) | payer MEDICARE, SELFPAY ==
[2025-01-10] VITALS (15 sets, daily range): BP systolic 111–170; BP diastolic 63–90; PULSE 77–101; RESP 13–26; TEMP 36.5–36.8; O2SAT 91–96; BMI 26.2
--- NOTE | 2025-01-10 11:30 | PC.NURSE ---
pt triaged, EKG performed and bloodwork sent to the lab on pt at this time. Pt and family informed of Plan of Care
--- NOTE | 2025-01-10 11:36 | ECG_ITS ---
APPROVED REPORT Exam: Resting ECG HR:93 bpm ECG Measurements Heart Rate 93 AXES QRSd 98 QRS 45 QT 326 T 260 QTc 377 Conclusion ATRIAL FIBRILLATION WITH ABERRANT CONDUCTION OR VENTRICULAR PREMATURE COMPLEXES ST DEVIATION AND MODERATE T-WAVE ABNORMALITY, CONSIDER LATERAL ISCHEMIA [-0.1+ mV T-WAVE IN I/aVL/V5/V6] ST DEVIATION AND MODERATE T-WAVE ABNORMALITY, CONSIDER INFERIOR ISCHEMIA [-0.1+ mV T-WAVE IN II/aVF] ABNORMAL ECG UNCONFIRMED REPORT Electronically signed by : ROBERT MERCHANT, 01/11/2025 06:32:55
--- NOTE | 2025-01-10 11:53 | XR_ITS ---
FINAL REPORT CLINICAL HISTORY: SOB COMPARISON: 01/05/2025 FINDINGS: A single frontal view of the chest was obtained. There is a large right pleural effusion which has increased since the previous exam. Underlying atelectasis and/or pneumonia again noted. The left lung is clear. There is no pneumothorax. The patient is status post CABG. Heart size is normal. IMPRESSION: Enlarging right pleural effusion. Reviewed, Interpreted and Dictated by Naomi Leach MD Transcribed by Cortney Garcia Authenticated and [facility]
[2025-01-10 11:59] LABS: Chloride 97 mmol/L (98-107)
[2025-01-10 12:00] LABS: Albumin Level 3.8 g/dl (3.5-5.0); Sodium 137 mmol/L (136-145)
[2025-01-10 12:02] LABS: Blood Urea Nitrogen 26 mg/dl (9-20); Creatinine Clearance Estimated 52 mL/min (50-200); Estimated Glomerular Filt Rate 53 ml/min (>60); GFR (African American) 64 ML/MIN (>60)
[2025-01-10 12:03] LABS: Alanine Aminotransferase 19 U/L (12-78); Alkaline Phosphatase 86 U/L (38-126); Aspartate Amino Transferase 26 U/L (17-59); Calcium 9.2 mg/dl (8.4-10.2); Carbon Dioxide 26 mmol/L (22.0-30.0); Globulin 3.7 g/dL (1.3-3.2); Glucose 276 mg/dl (74-100); Total Protein,Serum 7.5 g/dl (6.3-8.2)
[2025-01-10 12:04] LABS: Basophils % 0.2 % (0.1-2.0); Eosinophils # 0.1 Kmm3 (0.0-0.4); Eosinophils % 1.3 % (0.1-12.0); Hematocrit 47.7 % (42.0-52.0); Hemoglobin 15.5 g/dL (14.1-18.0); Immature Granulocytes # 0.03 10^3uL; Immature Granulocytes % 0.3 %; Lymphocytes # 2.9 K/mm3 (0.7-4.5); Lymphocytes % 25.6 % (10-50); Mean Corpuscular HGB Conc 32.5 g/dL (31.8-35.4); Mean Corpuscular Hemoglobin 29.7 pg (27.0-31.2); Mean Corpuscular Volume 91.4 fl (80-94); Mean Platelet Volume 10.2 fl (7.4-10.4); Monocytes % 8.5 % (1.7-9.3); Neutrophils # 7.2 K/mm3 (1.8-7.8); Neutrophils % 64.1 % (37.0-80.0); Nucleated Red Blood Cells # 0 10^3/uL; Nucleated Red Blood Cells % 0 %; Platelet Count 351 K/mm3 (142-424); Red Blood Count 5.22 M/mm3 (4.60-6.20); Red Cell Distribution Width 14.9 % (11.5-17.5); Red Cell Distribution Width-SD 50.2 fL; White Blood Count 11.2 K/mm3 (4.8-10.8)
[2025-01-10 12:24] LABS: Troponin I < 0.01 ng/ml (0.00-0.034)
--- OUTSIDE RECORDS SUMMARY | 2025-01-10 12:27 | XMS_ITS | Clinical Summary ---
Author Organization [facility] Address [address] [place] [address] Care Team Providers Care Senior Microstrategy Developer Name Role Phone Senthil Clinton MD Primary Care Provider [phone] Allergies Active Allergy Reactions Criticality Noted Date [...] Team Description 10/15/2024 10:00 AM EDT Consult [facility] [address] [phone] Luis Antonio Henson MD Severe aortic stenosis (Primary Dx) 10/15/2024 Refill [facility] [address] [phone] Alison Ortega RN 10/15/2024 Travel 10/13/2024 Abstract [facility] [address] [phone] Selena Farah 10/13/2024 Abstract [facility] [address] [phone] Selena Farah 10/13/2024 Orders Only [facility] [address] [phone] Selena Farah 10/12/2024 Telephone [facility] [address] [phone] Selena Farah from Last 3 Months Family [...] AM EDT Appointment Cardiac Imaging [address] [place] [address] 04/15/2025 10:30 AM EDT Office Visit [facility] [place] [address] [facility] [place] [address] Luis Antonio Henson MD [address] [place] [address] Health Maintenance Due Date Last Done Comments [facility]-Depression Screening 1943 [facility]-/Child/Adol SDOH Screenings 1943 [facility]- SDOH Screenings 1961 [facility]-Adult SDOH Screenings 1961 [facility]-DTaP,Tdap,and Td Vaccines (1 - Tdap) 1962 [facility]-Zoster Vaccines (1 of 2) 1993 [facility]-Pneumococcal Vaccine: 50+ Years (2 of 2 - PPSV23) 04/10/2018 04/10/2017 [id number] Vaccine ( season) 2024 05/10/2024, 05/16/2023, 04/10/2022, [...] to complete this topic Insurance [place] [id number] MEDICARE [facility] Care Teams Senior Microstrategy Developer Relationship Specialty Start Date End Date Senthil Clinton MD [address] [place] [phone] PCP - General Internal Medicine 10/15/24
[2025-01-10 12:35] LABS: D-Dimer 0.83 ug/mL (0.0-0.5)
--- NOTE | 2025-01-10 13:06 | CT_ITS ---
FINAL REPORT TECHNIQUE: Axial images were performed through the brain.This study was performed with techniques to keep radiation doses as low as reasonably achievable, (ALARA). Individualized dose reduction techniques using automated exposure control or adjustment of mA and/or kV according to the patient''s size were employed. CLINICAL HISTORY: Altered mental status, weakness FINDINGS: There is severe atrophy. Moderate, chronic microvascular ischemic changes are seen. The ventricles are normal in size for the degree of atrophy. There is no extra-axial fluid or midline shift. There is no evidence of acute hemorrhage or mass. Mild left ethmoid sinusitis is seen. IMPRESSION: Advanced atrophy without acute findings. Reviewed, Interpreted and Dictated by Naomi Leach MD Transcribed by Mini Ramsey Authenticated and [facility]
--- NOTE | 2025-01-10 13:08 | HMH.EDGENADL ---
Discharge Plan Disposition Patient Disposition: Admitted Clinical Impressions Clinical Impression: Failure to thrive Discharge ED Provider: Alexis Marie General Adult HPI <Alexis Marie MD - Last Filed: 01/10/25 16:20> General Chief complaint: Shortness of Breath/Dyspnea Stated complaint: soa, dehydration Time Seen by Provider: 01/10/25 12:42 Mode of Arrival: Wheelchair Source of Information: Patient and Spouse Description of Symptoms (Recalled from ER Triage Doc. by RN): pt to the ED with spouse for intermitten SOB over the last week. pt stated he has recently recovered from pneumonia and was feeling better but now feels like hes having SOB episodes and weakness. pt nenies and cough, fever or chest pain History of Present Illness HPI narrative: Carlos Bradshaw is an 79-year-old past medical history of hypertension, diabetes, CAD, cognitive impairment presenting for shortness of breath. According to family at bedside over the last week patient has been having more difficulty with completing his activities of daily living. He has been so fatigued that family has to help with showering and ambulation. He was recently treated with 2 rounds of antibiotics for a pneumonia and was told that there may be scarring due to the chronic issue. Additionally family at bedside stated that he has not been eating very much and and feels that she has to force him and remind him frequently to eat. He has not fallen recently and as far as family knows has been taking all of his medications as prescribed. At this time patient has no complaints. Related Data Home Medications ?Medication ?Instructions ?Recorded ?Confirmed glimepiride 4 mg tablet 4 mg PO DAILY Diabetes 03/31/18 01/10/25 metformin 500 mg tablet 1,000 mg PO BID Diabetes 03/31/18 01/10/25 Held on 10/04/24. Instructions: Resume on 10/06/24. hold for two days post cath pantoprazole 40 mg tablet,delayed 40 mg PO DAILY PRN gerd 02/02/19 01/10/25 release empagliflozin 25 mg tablet 25 mg PO DAILY 09/21/24 01/10/25 (Jardiance) atorvastatin 40 mg tablet 40 mg PO ONCE 10/26/24 01/10/25 metoprolol succinate 50 mg 50 mg PO DAILY 10/26/24 01/10/25 tablet,extended release 24 hr Previous Rx's ?Medication ?Instructions ?Recorded clopidogrel 75 mg tablet (Plavix) 75 mg PO DAILY #90 tabs 07/26/19 apixaban 5 mg tablet (Eliquis) 5 mg PO BID #180 tabs 10/18/24 nitroglycerin 0.4 mg sublingual 0.4 mg sublingual Q5-15M PRN chest 10/27/24 tablet pain #30 tabs sacubitril 24 mg-valsartan 26 mg 1 tab PO BID 90 days #180 tabs 11/22/24 tablet (Entresto) furosemide 80 mg tablet 80 mg PO DAILY #30 tabs 01/03/25 potassium chloride 20 mEq 40 meq (2 x 20 mEq) PO DAILY 30 01/03/25 tablet,extended days #60 tabs release(part/cryst) (Klor-Con M) Allergies Allergy/AdvReac Type Severity Reaction Status Date / Time gabapentin AdvReac Mild Dizziness Verified 11/16/24 10:51 [facility] <Alexis Marie MD - Last Filed: 01/10/25 16:20> [facility] Disclaimer: The information contained in this section may have been updated after the patient was seen, as this information can be updated by other users. Medical History HFrEF (heart failure with reduced ejection fraction) Severe aortic stenosis Afib Pre-syncope Dizziness Surgical History S/P CABG x 3 Family History Other Family history of cancer Family history of myocardial infarction Social History (Updated 01/10/25 @ 17:58 by Naima Lora RN) Smoking Status: Former smoker tobacco type: cigarettes second hand exposure: No alcohol intake: never substance use type: denies use current occupational status: retired Travel in the last 8 weeks?: Inside the [place] household members: spouse housing: house current occupational exposures/hazards: No caffeine: No Have you lived/traveled outside [place] in past 30 days?: No Contact w/someone who lives/traveled outside US past 30 days?: No Exposure to someone with infectious disease in past 14 days?: No Do you have a fever (greater than 100.4 F or 38 C)?: No Have you tested positive for COVID-19?: No Exposed to someone with COVID-19 in past 14 days?: No Do you have a sore throat?: No Do you have a cough?: No Do you have any weakness?: No Do you have any diarrhea?: No Are you experiencing any unusual bleeding?: No Do you have any muscle aches/pain?: No Do you have any abdominal pain?: No Are you experiencing loss of taste or smell?: No Other Medical History Have you received the Flu Vaccine for this season: Yes Have you received the Pneumonia Vaccine: No <Alexis Marie MD - Last Filed: 01/10/25 16:20> ROS Obtained: Yes All systems reviewed & no additional complaints except as documented Physical Exam <Alexis Marie MD - Last Filed: 01/10/25 16:20> General General appearance: alert and in no apparent distress Eye Eye exam: Present normal appearance; Absent PERRL ENT ENT exam: Present normal exam Neck Neck exam: Present normal inspection Chest Chest inspection: Present normal inspection and symmetric chest wall rise Respiratory Respiratory exam: Present other (Rhonchorous breath sounds on right lung, clear breath sounds on the left); Absent respiratory distress Cardiovascular Cardiovascular exam: Present regular rate and normal rhythm Abdominal Exam Abdominal exam: Present soft; Absent distention or tenderness Back Exam Back exam: Present normal inspection and full ROM Neurological Exam Neurological exam: Present alert and other (Waxing and waning orientation); Absent oriented X3 Psychiatric Psychiatric exam: Present normal affect Medical Decision Making <Alexis Marie MD - Last Filed: 01/10/25 16:20> Medical Records Screening: Per USPSTF and CDC recommendations, given the prevalence of disease in our region, it is our hospital?s policy to screen for HIV and viral Hepatitis for all patients aged 18 and over and those with ongoing risk factors. Jose Roberto Inquiry Pt receiving controlled substance: No Vital Signs: 01/10/25 11:30 01/10/25 12:17 01/10/25 12:30 Temperature 98.1 F Temperature Source Oral Pulse Rate 83 90 Pulse Rate [Left Radial] 91 H Respiratory Rate 17 20 20 Blood Pressure 122/76 111/72 Blood Pressure [Right Arm] 115/73 Blood Pressure Mean 90 83 Blood Pressure Mean [Right Arm] 87 Blood Pressure Source [Right Arm] Automatic Cuff Blood Pressure Position [Right Arm] Sitting 02 Sat by Pulse Oximetry 94 L Oxygen Delivery Method Room Air 01/10/25 13:00 01/10/25 13:30 01/10/25 14:15 Temperature Temperature Source Pulse Rate 83 83 101 H Pulse Rate [Left Radial] Respiratory Rate 20 18 13 Blood Pressure 127/70 124/77 113/63 Blood Pressure [Right Arm] Blood Pressure Mean 88 98 Blood Pressure Mean [Right Arm] Blood Pressure Source [Right Arm] Blood Pressure Position [Right Arm] 02 Sat by Pulse Oximetry 94 L 95 92 L Oxygen Delivery Method 01/10/25 14:47 01/10/25 15:00 01/10/25 15:53 Temperature Temperature Source Pulse Rate 90 82 81 Pulse Rate [Left Radial] Respiratory Rate 20 26 H 26 H Blood Pressure 119/67 119/71 148/83 H Blood Pressure [Right Arm] Blood Pressure Mean Blood Pressure Mean [Right Arm] Blood Pressure Source [Right Arm] Blood Pressure Position [Right Arm] 02 Sat by Pulse Oximetry 91 L 93 L 96 Oxygen Delivery Method Room Air Room Air Room Air 01/10/25 16:00 01/10/25 16:30 01/10/25 17:00 Temperature Temperature Source Pulse Rate 77 79 78 Pulse Rate [Left Radial] Respiratory Rate 18 18 19 Blood Pressure 142/88 H 134/82 146/84 H Blood Pressure [Right Arm] Blood Pressure Mean 99 100 104 Blood Pressure Mean [Right Arm] Blood Pressure Source [Right Arm] Blood Pressure Position [Right Arm] 02 Sat by Pulse Oximetry 94 L 94 L 92 L Oxygen Delivery Method 01/10/25 17:39 Temperature 98.2 F Temperature Source Pulse Rate 78 Pulse Rate [Left Radial] Respiratory Rate 20 Blood Pressure 146/84 H Blood Pressure [Right Arm] Blood Pressure Mean Blood Pressure Mean [Right Arm] Blood Pressure Source [Right Arm] Blood Pressure Position [Right Arm] 02 Sat by Pulse Oximetry Oxygen Delivery Method Room Air Lab Data Lab Results 01/10/25 11:39: WBC 11.2 H, RBC 5.22, Hgb 15.5, Hct 47.7, MCV 91.4, MCH 29.7, MCHC 32.5, RDW 14.9, Plt Count 351, MPV 10.2, Neut % (Auto) 64.1, Lymph % (Auto) 25.6, [place] % (Auto) 8.5, Eos % (Auto) 1.3, Baso % (Auto) 0.2, Neut # (Auto) 7.2, Lymph # (Auto) 2.9, [place] # (Auto) 1.0, Eos # (Auto) 0.1, Baso # (Auto) 0.0, D-Dimer 0.83 H, Sodium 137, Potassium 5.0, Chloride 97 L, Carbon Dioxide 26, Anion Gap 19.0 H, BUN 26 H, Creatinine 1.30 H, Estimated Creat Clear 52, Estimated GFR 53 L, Est GFR ( Amer) 64, Glucose 276 H, Calcium 9.2, Total Bilirubin 1.0, AST 26, ALT 19, Alkaline Phosphatase 86, Troponin I < 0.01, Total Protein 7.5, Albumin 3.8, Globulin 3.7 H, Albumin/Globulin Ratio 1.0 L, Lipase 80 01/10/25 13:40: Urine Color Yellow, Urine Appearance Clear, Urine pH 6.0, Ur Specific [place] 1.010, Urine Protein Negative, Urine Glucose (UA) 3+, Urine Ketones Negative, Urine Blood Negative, Urine Nitrate Negative, Urine Bilirubin Negative, Urine Urobilinogen 0.2, Ur Leukocyte Esterase Negative, Urine WBC 3-5, Urine Bacteria Trace 01/10/25 14:51: Troponin I < 0.01 01/10/25 11:39 01/10/25 11:39 Orders (Tests/Meds): ED MEDICATIONS Generic Name Dose Route Start Last Admin Trade Name Freq PRN Reason Stop Dose Admin Acetaminophen 650 mg 01/10/25 17:49 Acetaminophen 325mg Tab PO 02/09/25 17:48 Q4HP PRN Fever or Mild Pain (1-3) Empagliflozin 25 mg 01/11/25 09:00 Empagliflozin 25mg Tablet PO 02/10/25 08:59 DAILY [facility] Enoxaparin Sodium 85 mg 01/10/25 17:51 01/10/25 19:02 Enoxaparin 100mg/Ml Syringe 1 mg/kg (85 mg) 01/10/25 17:52 85 mg SUBCUT Administration ONCE ONE Furosemide 80 mg 01/11/25 09:00 Furosemide 80 Mg Tablet PO 02/10/25 08:59 DAILY [facility] Cefepime HCl 2 gm/ Sodium 100 mls @ 200 mls/hr 01/10/25 19:15 Chloride IV 01/20/25 19:14 Q8H [facility] Doxycycline Hyclate 100 mg/ 250 mls @ 166.667 mls/hr 01/10/25 19:15 Sodium Chloride IV 01/20/25 19:14 Q12H [facility] Insulin Human Lispro 0 unit 01/10/25 21:00 Humalog 100 Units/Ml 10ml Vial (Ssi) SUBCUT 02/09/25 20:59 ACHS [facility] Protocol Metformin HCl 1,000 mg 01/10/25 21:00 Metformin 500mg Tablet PO 02/09/25 20:59 BID [facility] Metoprolol Succinate 50 mg 01/11/25 09:00 Metoprolol Succinate Xl 50mg Tablet PO 02/10/25 08:59 DAILY [facility] Ondansetron HCl 4 mg 01/10/25 17:49 Ondansetron 4mg/2ml Vial IV 02/09/25 17:48 Q6HP PRN Nausea And Vomiting Sacubitril/Valsartan 1 each 01/10/25 21:00 Sacubitril/Valsartan 24-26mg Tablet PO 02/09/25 20:59 BID [facility] Discontinued Medications Generic Name Dose Route Start Last Admin Trade Name Freq PRN Reason Stop Dose Admin Lactated Ringer's 500 mls @ 999 mls/hr 01/10/25 13:08 01/10/25 13:18 Lactated Ringer's 1000 Ml Bag IV 01/10/25 13:38 999 mls/hr .Q31M ONE Administration Iopamidol 70 ml 01/10/25 15:31 01/10/25 15:33 Iopamidol-370 (76%);100ml Bottle IV 01/10/25 15:32 70 ml ONCE ONE Administration Sodium Chloride 50 ml 01/10/25 15:31 01/10/25 15:32 0.9 % Sodium Chloride 50 Ml Vial IV 01/10/25 15:32 50 ml ONCE ONE Administration Sodium Chloride 10 ml 01/10/25 15:31 01/10/25 15:33 Sodium Chloride 0.9% 10ml Syr (Rad Only) IV 02/09/25 15:30 10 ml NEEDED PRN Administration Maintain IV Site ORDERS Category Date Time Status CT angio chest PE protocol Stat Cat Scan 01/10/25 14:[address] head/brain wo con Stat Cat Scan 01/10/25 13:06 Completed XR chest portable Stat Exams 01/10/25 11:53 Completed Complete Blood Count Auto Diff Stat Lab 01/10/25 11:39 Completed Comprehensive Metabolic Panel Stat Lab 01/10/25 11:39 Completed D-Dimer Stat Lab 01/10/25 11:39 Completed Lipase Stat Lab 01/10/25 11:39 Completed Troponin I Q3H Lab 01/10/25 14:51 Completed Troponin I Q3H Lab 01/10/25 18:13 Completed Troponin I Stat Lab 01/10/25 11:39 Completed Urinalysis and Microscopic Stat Lab 01/10/25 13:40 Completed Medical Decision Narrative: In summary, this 79-year-old male presents to the emergency department today with shortness of breath. On initial evaluation patient is in no acute respiratory distress, has waxing and waning mental status and has a history of a right-sided pneumonia per chart review. Differential diagnosis includes but is not limited to pneumonia, pleural effusion, intracranial hemorrhage, electrolyte abnormality, sepsis,. Based on these concerns, I ordered CT and labs. ECG personally interpreted demonstrates prolonged TN, no ST elevation, no prolonged QTc. Patient received fluids for treatment. Labs personally reviewed demonstrate mild leukocytosis, CHANTE, mildly elevated anion gap, hyperglycemia. XR personally interpreted demonstrates large right-sided pleural effusion. CT imaging personally interpreted demonstrate large right-sided pleural effusion. I had an interactive discussion with hospital medicine service and they recommended a CT chest to rule out an obstructive cause of the pleural effusion and possible pneumonia. Patient was signed out to oncoming attending of pending being the final results of the CT and likely admission to the hospital.. On reassessment similar to previous evaluation still in no acute respiratory distress. <Dianna Flores, DO - Last Filed: 01/10/25 20:03> Vital Signs: 01/10/25 11:30 01/10/25 12:17 01/10/25 12:30 Temperature 98.1 F Temperature Source Oral Pulse Rate 83 90 Pulse Rate [Left Radial] 91 H Respiratory Rate 17 20 20 Blood Pressure 122/76 111/72 Blood Pressure [Right Arm] 115/73 Blood Pressure Mean 90 83 Blood Pressure Mean [Right Arm] 87 Blood Pressure Source [Right Arm] Automatic Cuff Blood Pressure Position [Right Arm] Sitting 02 Sat by Pulse Oximetry 94 L Oxygen Delivery Method Room Air 01/10/25 13:00 01/10/25 13:30 01/10/25 14:15 Temperature Temperature Source Pulse Rate 83 83 101 H Pulse Rate [Left Radial] Respiratory Rate 20 18 13 Blood Pressure 127/70 124/77 113/63 Blood Pressure [Right Arm] Blood Pressure Mean 88 98 Blood Pressure Mean [Right Arm] Blood Pressure Source [Right Arm] Blood Pressure Position [Right Arm] 02 Sat by Pulse Oximetry 94 L 95 92 L Oxygen Delivery Method 01/10/25 14:47 01/10/25 15:00 01/10/25 15:53 Temperature Temperature Source Pulse Rate 90 82 81 Pulse Rate [Left Radial] Respiratory Rate 20 26 H 26 H Blood Pressure 119/67 119/71 148/83 H Blood Pressure [Right Arm] Blood Pressure Mean Blood Pressure Mean [Right Arm] Blood Pressure Source [Right Arm] Blood Pressure Position [Right Arm] 02 Sat by Pulse Oximetry 91 L 93 L 96 Oxygen Delivery Method Room Air Room Air Room Air 01/10/25 16:00 01/10/25 16:30 01/10/25 17:00 Temperature Temperature Source Pulse Rate 77 79 78 Pulse Rate [Left Radial] Respiratory Rate 18 18 19 Blood Pressure 142/88 H 134/82 146/84 H Blood Pressure [Right Arm] Blood Pressure Mean 99 100 104 Blood Pressure Mean [Right Arm] Blood Pressure Source [Right Arm] Blood Pressure Position [Right Arm] 02 Sat by Pulse Oximetry 94 L 94 L 92 L Oxygen Delivery Method 01/10/25 17:39 Temperature 98.2 F Temperature Source Pulse Rate 78 Pulse Rate [Left Radial] Respiratory Rate 20 Blood Pressure 146/84 H Blood Pressure [Right Arm] Blood Pressure Mean Blood Pressure Mean [Right Arm] Blood Pressure Source [Right Arm] Blood Pressure Position [Right Arm] 02 Sat by Pulse Oximetry Oxygen Delivery Method Room Air Lab Data Lab Results 01/10/25 11:39: WBC 11.2 H, RBC 5.22, Hgb 15.5, Hct 47.7, MCV 91.4, MCH 29.7, MCHC 32.5, RDW 14.9, Plt Count 351, MPV 10.2, Neut % (Auto) 64.1, Lymph % (Auto) 25.6, [place] % (Auto) 8.5, Eos % (Auto) 1.3, Baso % (Auto) 0.2, Neut # (Auto) 7.2, Lymph # (Auto) 2.9, [place] # (Auto) 1.0, Eos # (Auto) 0.1, Baso # (Auto) 0.0, D-Dimer 0.83 H, Sodium 137, Potassium 5.0, Chloride 97 L, Carbon Dioxide 26, Anion Gap 19.0 H, BUN 26 H, Creatinine 1.30 H, Estimated Creat Clear 52, Estimated GFR 53 L, Est GFR ( Amer) 64, Glucose 276 H, Calcium 9.2, Total Bilirubin 1.0, AST 26, ALT 19, Alkaline Phosphatase 86, Troponin I < 0.01, Total Protein 7.5, Albumin 3.8, Globulin 3.7 H, Albumin/Globulin Ratio 1.0 L, Lipase 80 01/10/25 13:40: Urine Color Yellow, Urine Appearance Clear, Urine pH 6.0, Ur Specific [place] 1.010, Urine Protein Negative, Urine Glucose (UA) 3+, Urine Ketones Negative, Urine Blood Negative, Urine Nitrate Negative, Urine Bilirubin Negative, Urine Urobilinogen 0.2, Ur Leukocyte Esterase Negative, Urine WBC 3-5, Urine Bacteria Trace 01/10/25 14:51: Troponin I < 0.01 Orders (Tests/Meds): ED MEDICATIONS Generic Name Dose Route Start Last Admin Trade Name Freq PRN Reason Stop Dose Admin Acetaminophen 650 mg 01/10/25 17:49 Acetaminophen 325mg Tab PO 02/09/25 17:48 Q4HP PRN Fever or Mild Pain (1-3) Empagliflozin 25 mg 01/11/25 09:00 Empagliflozin 25mg Tablet PO 02/10/25 08:59 DAILY [facility] Enoxaparin Sodium 85 mg 01/10/25 17:51 01/10/25 19:02 Enoxaparin 100mg/Ml Syringe 1 mg/kg (85 mg) 01/10/25 17:52 85 mg SUBCUT Administration ONCE ONE Furosemide 80 mg 01/11/25 09:00 Furosemide 80 Mg Tablet PO 02/10/25 08:59 DAILY [facility] Cefepime HCl 2 gm/ Sodium 100 mls @ 200 mls/hr 01/10/25 19:15 Chloride IV 01/20/25 19:14 Q8H [facility] Doxycycline Hyclate 100 mg/ 250 mls @ 166.667 mls/hr 01/10/25 19:15 Sodium Chloride IV 01/20/25 19:14 Q12H [facility] Insulin Human Lispro 0 unit 01/10/25 21:00 Humalog 100 Units/Ml 10ml Vial ([facility]) SUBCUT 02/09/25 20:59 ACHS [facility] Protocol Metformin HCl 1,000 mg 01/10/25 21:00 Metformin 500mg Tablet PO 02/09/25 20:59 BID [facility] Metoprolol Succinate 50 mg 01/11/25 09:00 Metoprolol Succinate Xl 50mg Tablet PO 02/10/25 08:59 DAILY [facility] Ondansetron HCl 4 mg 01/10/25 17:49 Ondansetron 4mg/2ml Vial IV 02/09/25 17:48 Q6HP PRN Nausea And Vomiting Sacubitril/Valsartan 1 each 01/10/25 21:00 Sacubitril/Valsartan 24-26mg Tablet PO 02/09/25 20:59 BID [facility] Discontinued Medications Generic Name Dose Route Start Last Admin Trade Name Freq PRN Reason Stop Dose Admin Lactated Ringer's 500 mls @ 999 mls/hr 01/10/25 13:08 01/10/25 13:18 Lactated Ringer's 1000 Ml Bag IV 01/10/25 13:38 999 mls/hr .Q31M ONE Administration Iopamidol 70 ml 01/10/25 15:31 01/10/25 15:33 Iopamidol-370 (76%);100ml Bottle IV 01/10/25 15:32 70 ml ONCE ONE Administration Sodium Chloride 50 ml 01/10/25 15:31 01/10/25 15:32 0.9 % Sodium Chloride 50 Ml Vial IV 01/10/25 15:32 50 ml ONCE ONE Administration Sodium Chloride 10 ml 01/10/25 15:31 01/10/25 15:33 Sodium Chloride 0.9% 10ml Syr (Rad Only) IV 02/09/25 15:30 10 ml NEEDED PRN Administration Maintain IV Site ORDERS Category Date Time Status CT angio chest PE protocol Stat Cat Scan 01/10/25 14:[address] head/brain wo con Stat Cat Scan 01/10/25 13:06 Completed XR chest portable Stat Exams 01/10/25 11:53 Completed Complete Blood Count Auto Diff Stat Lab 01/10/25 11:39 Completed Comprehensive Metabolic Panel Stat Lab 01/10/25 11:39 Completed D-Dimer Stat Lab 01/10/25 11:39 Completed Lipase Stat Lab 01/10/25 11:39 Completed Troponin I Q3H Lab 01/10/25 14:51 Completed Troponin I Q3H Lab 01/10/25 18:13 Completed Troponin I Stat Lab 01/10/25 11:39 Completed Urinalysis and Microscopic Stat Lab 01/10/25 13:40 Completed Medical Decision Narrative: In summary, this 79-year-old male presents to the emergency department today with shortness of breath. On initial evaluation patient is in no acute respiratory distress, has waxing and waning mental status and has a history of a right-sided pneumonia per chart review. Differential diagnosis includes but is not limited to pneumonia, pleural effusion, intracranial hemorrhage, electrolyte abnormality, sepsis,. Based on these concerns, I ordered CT and labs. ECG personally interpreted demonstrates prolonged TN, no ST elevation, no prolonged QTc. Patient received fluids for treatment. Labs personally reviewed demonstrate mild leukocytosis, CHANTE, mildly elevated anion gap, hyperglycemia. XR personally interpreted demonstrates large right-sided pleural effusion. CT imaging personally interpreted demonstrate large right-sided pleural effusion. I had an interactive discussion with hospital medicine service and they recommended a CT chest to rule out an obstructive cause of the pleural effusion and possible pneumonia. Patient was signed out to oncoming attending of pending being the final results of the CT and likely admission to the hospital.. On reassessment similar to previous evaluation still in no acute respiratory distress. Mark DO: CT scan concerning for mass and possible chronic pulmonary emboli versus encasement of the pulmonary arteries by mass. On my assessment, patient is hemodynamically stable lying in bed in no acute distress. I had an interactive discussion with the hospitalist who admitted the patient in stable condition for further evaluation and management. Critical Care <Alexis Marie MD - Last Filed: 01/10/25 16:20> Critical Care Time Critical Care Time: No
[2025-01-10 13:18] LABS: Lipase 80 U/L (23-300)
[2025-01-10] MEDS: LACTATED RINGERS 1000ML 500 ML 999 ML IV (13:18)
[2025-01-10 13:45] LABS: Microscopic, Urine URINE MICROSCOPIC (MICROSCOPIC)
[2025-01-10 14:16] LABS: Appearance,Urine CLEAR (Clear); Bilirubin,Urine Negative (Negative); Blood, Urine Negative (Negative); Color,Urine YELLOW (Yellow); Glucose,Urine (UA) 3+ (Negative); Ketones,Urine Negative (Negative); Leukocyte Esterase,Urine Negative (Negative); Nitrate,Urine Negative (Negative); Protein,Urine Negative (Negative); Urobilinogen,Urine 0.2 EU/dl (0.2)
--- NOTE | 2025-01-10 14:39 | PC.NURSE ---
SPEAKING WITH HOSPITALIST
--- NOTE | 2025-01-10 14:43 | CT_ITS ---
FINAL REPORT TECHNIQUE: Postcontrast axial images of the chest were performed in a CTA protocol. This study was performed with techniques to keep radiation doses as low as reasonably achievable, (ALARA). Individualized dose reduction technique using automated exposure control or adjustment of mA and/or kV according to the patient's size were employed. CLINICAL HISTORY: large plueral effusion COMPARISON: 09/17/2024 FINDINGS: There is an extremely large right pleural effusion which is new from prior exam. There is right lung collapse resulting in shift of the mediastinal structures to the left. Left lung is clear. There is no adenopathy. There is a rounded, masslike structure in the posterior pleural space measuring up to 45 mm which could represent right lower lobe collapse having a pseudo masslike configuration. There is occlusion of the right lower lobe segmental branches which could be acute or chronic, particularly if there is a known central lung mass present. There is no pulmonary embolism to the left lung. There is no evidence of right heart strain. IMPRESSION: Occlusion of right lower lobe pulmonary artery branches, favor chronic such as tumor encasement or old PE. This is considered less likely to be acute PE. No evidence of right heart strain. Massive right pleural effusion. Right lung collapse with masslike structure in the right infrahilar region likely representing a rounded right lower lobe collapse with potential central mass. Reviewed, Interpreted and Dictated by Naomi Leach MD Transcribed by Mini Ramsey Authenticated and [facility]
[2025-01-10 14:58] LABS: Bacteria,Urine Trace /lpf
[2025-01-10 15:23] LABS: Troponin I < 0.01 ng/ml (0.00-0.034)
[2025-01-10] MEDS: 0.9 % SODIUM CHLORIDE 50 ML VIAL IV (15:32)
[2025-01-10] MEDS: SODIUM CHLORIDE 0.9% 10ML SYR (RAD ONLY) 10 ML IV (15:33)
[2025-01-10] MEDS: IOPAMIDOL-370 (76%);100ML BOTTLE 70 ML IV (15:33)
--- NOTE | 2025-01-10 15:37 | PC.NURSE ---
pt back from RAD
--- NOTE | 2025-01-10 15:53 | PC.NURSE ---
Addendum entered by Stephany Daniel, EMT 01/10/25 15:56: cancel trop drawn on wrong pt Original Note: 2nd trop sent at this time
--- NOTE | 2025-01-10 17:17 | PC.NURSE ---
notified house of admission
--- NOTE | 2025-01-10 17:43 | PC.NURSE ---
arrived by w/c from ED
--- NOTE | 2025-01-10 17:52 | EXP.HP ---
History of Present Illness *Admission Date: 01/10/25 *Reason for visit:: Progressive weakness, weight loss shortness of breath *History of present illness: Carlos Bradshaw is an 79-year-old male with a complex cardiac history including CABG, STEMI, A-fib, HFrEF as well as type 2 diabetes, GERD who presents to the ED with 1 week onset of progressive weakness and low appetite, and 1 day onset of shortness of breath. Patient and state over the past 3 to 4 months patient has lost about 20 pounds, and has had decreased appetite. This has been more prominent over the past week. Patient denies shortness of breath over the past couple months, but does endorse that today which prompted patient to come to the ED. Former smoker 40 years ago, no personal or known family history of cancer. Workup in the ED significant for CTA chest showing massive right pleural effusion, right lung collapse with right infrahilar suspected malignancy, as well as suspected old PE in the right lower lobe pulmonary branches. Patient is already on Eliquis. On my evaluation of patient, he was lying in bed comfortably without acute distress. On room air. Discussed case with pulmonology and we both agreed to admit patient to our facility for thoracentesis tomorrow. [facility] Disclaimer: The information contained in this section may have been updated after the patient was seen, as this information can be updated by other users. Medical History HFrEF (heart failure with reduced ejection fraction) Severe aortic stenosis Afib Pre-syncope Dizziness Surgical History S/P CABG x 3 Family History Other Family history of cancer Family history of myocardial infarction Social History (Updated 01/10/25 @ 17:58 by Naima Lora RN) Smoking Status: Former smoker tobacco type: cigarettes second hand exposure: No alcohol intake: never substance use type: denies use current occupational status: retired Travel in the last 8 weeks?: [place] the [place] household members: spouse housing: house current occupational exposures/hazards: No caffeine: No Have you lived/traveled outside US in past 30 days?: No Contact w/someone who lives/traveled outside US past 30 days?: No Exposure to someone with infectious disease in past 14 days?: No Do you have a fever (greater than 100.4 F or 38 C)?: No Have you tested positive for COVID-19?: No Exposed to someone with COVID-19 in past 14 days?: No Do you have a sore throat?: No Do you have a cough?: No Do you have any weakness?: No Do you have any diarrhea?: No Are you experiencing any unusual bleeding?: No Do you have any muscle aches/pain?: No Do you have any abdominal pain?: No Are you experiencing loss of taste or smell?: No Other Medical History Have you received the Flu Vaccine for this season: Yes Have you received the Pneumonia Vaccine: No Meds Home Medications and Allergies Home Medications ?Medication ?Instructions ?Recorded ?Confirmed ?Type glimepiride 4 mg tablet 4 mg PO DAILY Diabetes 03/31/18 01/10/25 History metformin 500 mg tablet 1,000 mg PO BID Diabetes 03/31/18 01/10/25 History Held on 10/04/24. Instructions: Resume on 10/06/24. hold for two days post cath pantoprazole 40 mg tablet,delayed 40 mg PO DAILY PRN gerd 02/02/19 01/10/25 History release clopidogrel 75 mg tablet (Plavix) 75 mg PO DAILY #90 tabs 07/26/19 01/10/25 Rx empagliflozin 25 mg tablet 25 mg PO DAILY 09/21/24 01/10/25 History (Jardiance) apixaban 5 mg tablet (Eliquis) 5 mg PO BID #180 tabs 10/18/24 01/10/25 Rx atorvastatin 40 mg tablet 40 mg PO ONCE 10/26/24 01/10/25 History metoprolol succinate 50 mg 50 mg PO DAILY 10/26/24 01/10/25 History tablet,extended release 24 hr nitroglycerin 0.4 mg sublingual 0.4 mg sublingual Q5-15M PRN chest 10/27/24 01/10/25 Rx tablet pain #30 tabs sacubitril 24 mg-valsartan 26 mg 1 tab PO BID 90 days #180 tabs 11/22/24 01/10/25 Rx tablet (Entresto) furosemide 80 mg tablet 80 mg PO DAILY #30 tabs 01/03/25 01/10/25 Rx potassium chloride 20 mEq 40 meq (2 x 20 mEq) PO DAILY 30 01/03/25 01/10/25 Rx tablet,extended days #60 tabs release(part/cryst) (Dylan Greene) New Prescriptions to Start Prescriptions: Allergies Allergy/AdvReac Type Severity Reaction Status Date / Time gabapentin AdvReac Mild Dizziness Verified 11/16/24 10:51 Exam Data for Last 24 hours Vital signs and Labs for Last 24 Hours: Temp Pulse Resp BP Pulse Ox O2 Del Method 98.2 F 78 20 146/84 H 92 L Room Air 01/10/25 17:39 01/10/25 17:39 01/10/25 17:39 01/10/25 17:39 01/10/25 17:00 01/10/25 17:39 Laboratory Results - last 24 hr 01/10/25 11:39: WBC 11.2 H, RBC 5.22, Hgb 15.5, Hct 47.7, MCV 91.4, MCH 29.7, MCHC 32.5, RDW 14.9, Plt Count 351, MPV 10.2, Neut % (Auto) 64.1, Lymph % (Auto) 25.6, Morton % (Auto) 8.5, Eos % (Auto) 1.3, Baso % (Auto) 0.2, Neut # (Auto) 7.2, Lymph # (Auto) 2.9, Morton # (Auto) 1.0, Eos # (Auto) 0.1, Baso # (Auto) 0.0, D-Dimer 0.83 H, Sodium 137, Potassium 5.0, Chloride 97 L, Carbon Dioxide 26, Anion Gap 19.0 H, BUN 26 H, Creatinine 1.30 H, Estimated Creat Clear 52, Estimated GFR 53 L, Est GFR ( Amer) 64, Glucose 276 H, Calcium 9.2, Total Bilirubin 1.0, AST 26, ALT 19, Alkaline Phosphatase 86, Troponin I < 0.01, Total Protein 7.5, Albumin 3.8, Globulin 3.7 H, Albumin/Globulin Ratio 1.0 L, Lipase 80 01/10/25 13:40: Urine Color Yellow, Urine Appearance Clear, Urine pH 6.0, Ur Specific Pelham 1.010, Urine Protein Negative, Urine Glucose (UA) 3+, Urine Ketones Negative, Urine Blood Negative, Urine Nitrate Negative, Urine Bilirubin Negative, Urine Urobilinogen 0.2, Ur Leukocyte Esterase Negative, Urine WBC 3-5, Urine Bacteria Trace 01/10/25 14:51: Troponin I < 0.01 I & O for Last 24 hours: Intake & Output 01/07/25 01/08/25 01/09/25 01/10/25 23:59 23:59 23:59 23:59 Weight 83.007 kg Constitutional Constitutional: no acute distress *Routine HEENT Exam Head: Present normocephalic Eye: Present EOMI and PERRL ENT: Present mucous membranes moist *Routine Neck Exam Neck: Present supple; Absent lymphadenopathy *Routine Respiratory Exam Respiratory: Absent CTA bilaterally Comments: Diminished air movement right lung. *Routine Cardiovascular Exam Cardiovascular: Present RRR *Routine Abdominal Exam Abdominal: Present soft and normoactive bowel sounds; Absent tenderness *Routine Rectal Exam Rectal:: deferred *Routine Genitalia Exam Genitalia:: deferred *Routine Extremities Exam Extremities: Absent cyanosis, clubbing or edema *Routine Skin Exam Skin: Present warm; Absent rash *Routine Neurological Exam Neurological: Present alert and oriented X3 Assessment and Plan *Assessment and plan (1) Failure to thrive: Status: Acute Category: Medical (2) Pleural effusion: Status: Acute Category: Medical Code(s): J90 - Pleural effusion, not elsewhere classified Plan Carlos Bradshaw is an 79-year-old male with a complex cardiac history including CABG, STEMI, A-fib, HFrEF as well as type 2 diabetes, GERD who presents to the ED with 1 week onset of progressive weakness and low appetite, and 1 day onset of shortness of breath. Patient and state over the past 3 to 4 months patient has lost about 20 pounds, and has had decreased appetite. This has been more prominent over the past week. Patient denies shortness of breath over the past couple months, but does endorse that today which prompted patient to come to the ED. Former smoker 40 years ago, no personal or known family history of cancer. Workup in the ED significant for CTA chest showing massive right pleural effusion, right lung collapse with right infrahilar suspected malignancy, as well as suspected old PE in the right lower lobe pulmonary branches. Patient is already on Eliquis. On my evaluation of patient, he was lying in bed comfortably without acute distress. On room air. Discussed case with pulmonology and we both agreed to admit patient to our facility for thoracentesis tomorrow. #Massive right pleural effusion #Pulmonary emboli #Suspected malignancy #Former smoker ? Patient has had 20 pound weight loss over the past 3 to 4 months, poor appetite, and significant fatigue over the past week with shortness of breath today. Former smoker quit 40 years ago. ? CTA chest showing massive right pleural effusion, right lung collapse with right infrahilar suspected malignancy, as well as suspected old PE in the right lower lobe pulmonary branches. ? Discussed case with pulmonology, will plan for therapeutic and diagnostic thoracentesis tomorrow. Patient and amenable to this. ? Ordered one-time dose of IV therapeutic Lovenox, will restart anticoagulation after thoracentesis tomorrow. ? Started cefepime, doxycycline day 1 for empiric treatment of effusion. ? Plan to follow-up pleural fluid studies and cytology. #History of CABG, STEMI #A-fib #HFrEF #Severe aortic stenosis ? Currently stable. Hold home Plavix, anticoagulation pending thoracentesis tomorrow. ? Continue home metoprolol succinate 50 mg, Entresto, Jardiance 25 mg. #Type 2 diabetes ? Hemoglobin A1c 7.8%. ? LDSSI, ACHS glucose checks. Continue home metformin, Jardiance. #GERD ? Continue home PPI. #Dementia ? Patient at this time seems alert and oriented, endorses memory loss. Continue supportive therapy. Full code DVT prophylaxis: Lovenox as above
[2025-01-10 18:47] LABS: Troponin I < 0.01 ng/ml (0.00-0.034)
[2025-01-10] MEDS: ENOXAPARIN 100MG/ML SYRINGE 85 MG SUBCUT (19:02)
[2025-01-10] MEDS: CEFEPIME HCL 2 GM in 0.9 % SODIUM CHLORIDE 100 ML IV (19:55)
[2025-01-10] MEDS: DOXYCYCLINE HYCLATE 100 MG in 0.9 % SODIUM CHLORIDE 250 ML 166.667 MG IV (20:42)
[2025-01-10] MEDS: humaLOG 100 UNITS/ML 10ML VIAL (SSI) SUBCUT (20:54)
[2025-01-10] MEDS: METFORMIN 500MG TABLET 1000 MG PO (20:54)
[2025-01-10] MEDS: SACUBITRIL/VALSARTAN 24-26MG TABLET 1 EACH PO (20:55)
[2025-01-11] VITALS (8 sets, daily range): BP systolic 112–166; BP diastolic 53–86; PULSE 80–119; RESP 14–23; TEMP 36.4–37.4; O2SAT 92–97; BMI 26.8
[2025-01-11 00:59] LABS: POC Glucose,Bedside 162 (70-110)
[2025-01-11] MEDS: CEFEPIME HCL 2 GM in 0.9 % SODIUM CHLORIDE 100 ML IV ×3 (03:10→20:10)
--- NOTE | 2025-01-11 04:43 | PC.NURSE ---
Pt. is alert and orientated x name, date of , year, month, could not tell RN where he was or what he was doing here. Alert with periods of confusion. Pt. is on room air. Pt. was admitted yesterday with dehydration, pleural effusion, a right lung mass. Pt. resting comfortable in the bed. Slept off and on overnight. Pt. received IV antibiotics. Respirations easy and non labored. Pt. voiding per urinal. Personal items and call pineda in reach. Bed alarm on, safety measure in place.
[2025-01-11 05:25] LABS: Chloride 102 mmol/L (98-107); Potassium 4.4 mmoL/L (3.5-5.1); Sodium 137 mmol/L (136-145)
[2025-01-11 05:27] LABS: Alanine Aminotransferase 12 U/L (12-78); Alkaline Phosphatase 79 U/L (38-126); Anion Gap 13.4 mEq/L (5-15); Aspartate Amino Transferase 21 U/L (17-59); Bilirubin,Total 0.9 mg/dl (0.2-1.3); Blood Urea Nitrogen 24 mg/dl (9-20); Carbon Dioxide 26 mmol/L (22.0-30.0); Creatinine Clearance Estimated 70 mL/min (50-200); Estimated Glomerular Filt Rate 72 ml/min (>60); GFR (African American) 87 ML/MIN (>60)
[2025-01-11 05:28] LABS: Calcium 8.8 mg/dl (8.4-10.2); Chol/HDL Ratio 4.3 (1-3.5); Cholesterol 98 mg/dl (140-200); Glucose 91 mg/dl (74-100); HDL Cholesterol 23 mg/dl (40-60); Magnesium 2.2 mg/dl (1.6-2.3); Total Protein,Serum 6.4 g/dl (6.3-8.2); Triglycerides 152 mg/dl (30-150); VLDL Cholesterol 30 mg/dL (0-40)
[2025-01-11 05:29] LABS: Albumin Level 3.2 g/dl (3.5-5.0); Globulin 3.2 g/dL (1.3-3.2)
[2025-01-11 05:39] LABS: Basophils % 0.4 % (0.1-2.0); Direct LDL Cholesterol 38.33 mg/dL (100-129); Eosinophils # 0.2 Kmm3 (0.0-0.4); Eosinophils % 2.1 % (0.1-12.0); Hematocrit 42.5 % (42.0-52.0); Hemoglobin 14.1 g/dL (14.1-18.0); Immature Granulocytes # 0.03 10^3uL; Immature Granulocytes % 0.4 %; Lymphocytes # 1.7 K/mm3 (0.7-4.5); Lymphocytes % 22.3 % (10-50); Mean Corpuscular HGB Conc 33.2 g/dL (31.8-35.4); Mean Corpuscular Hemoglobin 30.2 pg (27.0-31.2); Mean Platelet Volume 10.3 fl (7.4-10.4); Monocytes # 0.9 K/mm3 (0.1-1.0); Monocytes % 12.1 % (1.7-9.3); Neutrophils # 4.8 K/mm3 (1.8-7.8); Neutrophils % 62.7 % (37.0-80.0); Nucleated Red Blood Cells # 0 10^3/uL; Nucleated Red Blood Cells % 0 %; Platelet Count 305 K/mm3 (142-424); Red Blood Count 4.67 M/mm3 (4.60-6.20); Red Cell Distribution Width 15.1 % (11.5-17.5); Red Cell Distribution Width-SD 50.1 fL; White Blood Count 7.7 K/mm3 (4.8-10.8)
[2025-01-11 06:00] LABS: POC Glucose,Bedside 85 (70-110)
[2025-01-11] MEDS: DOXYCYCLINE HYCLATE 100 MG in 0.9 % SODIUM CHLORIDE 250 ML 166.667 MG IV ×2 (06:31→18:50)
--- NOTE | 2025-01-11 07:21 | HMH.PHAINT1 ---
Pharmacy Intervention Comments: MEDICATION RECONCILIATION COMPLETED ON PATIENT USING EXTERNAL FILL HISTORY FROM PHARMACY AND LIST FROM CARDIOLOGY OFFICE. -LIZY SINHA, MARIA DEL ROSARIOD
[2025-01-11] MEDS: SACUBITRIL/VALSARTAN 24-26MG TABLET 1 EACH PO ×2 (09:02→20:11)
[2025-01-11] MEDS: METOPROLOL SUCCINATE XL 50MG TABLET 50 MG PO (09:03)
[2025-01-11] MEDS: METFORMIN 500MG TABLET 1000 MG PO ×2 (09:03→16:44)
[2025-01-11] MEDS: FUROSEMIDE 80 MG TABLET PO (09:03)
[2025-01-11] MEDS: EMPAGLIFLOZIN 25MG TABLET 25 MG PO (09:03)
--- NOTE | 2025-01-11 09:25 | EXP.PULM.CON ---
History of Present Illness History of present illness: Mr. Bradshaw is a 79-year-old male last smoked around 1979 around 93-77-ghqv-year smoking history ER with worsening respiratory distress found to have large pleural effusion and pulmonary was called for further evaluation and management [facility] Disclaimer: The information contained in this section may have been updated after the patient was seen, as this information can be updated by other users. Medical History (Updated 01/11/25 @ 13:55 by Martín Hoover MD) Lung nodule HFrEF (heart failure with reduced ejection fraction) Severe aortic stenosis Afib Pre-syncope Dizziness Surgical History S/P CABG x 3 Family History Other Family history of cancer Family history of myocardial infarction Social History (Updated 01/10/25 @ 17:58 by Naima Lora RN) Smoking Status: Former smoker tobacco type: cigarettes second hand exposure: No alcohol intake: never substance use type: denies use current occupational status: retired Travel in the last 8 weeks?: [place] household members: spouse housing: house current occupational exposures/hazards: No caffeine: No Have you lived/traveled outside US in past 30 days?: No Contact w/someone who lives/traveled outside US past 30 days?: No Exposure to someone with infectious disease in past 14 days?: No Do you have a fever (greater than 100.4 F or 38 C)?: No Have you tested positive for COVID-19?: No Exposed to someone with COVID-19 in past 14 days?: No Do you have a sore throat?: No Do you have a cough?: No Do you have any weakness?: No Do you have any diarrhea?: No Are you experiencing any unusual bleeding?: No Do you have any muscle aches/pain?: No Do you have any abdominal pain?: No Are you experiencing loss of taste or smell?: No Review of Systems Constitutional Constitutional: Reports anorexia, Reports body ache(s), Reports fatigue, Reports poor appetite, Reports lethargy and Reports weakness Eyes Eyes: Denies eye discharge, Denies dry eyes, Denies irritation and Denies itchy eyes ENT Ears, Nose, Mouth, and Throat: Denies epistaxis, Denies facial pain, Denies lip swelling and Denies throat swelling *Cardiovascular Cardiovascular: Reports dyspnea and Reports dyspnea on exertion *Respiratory Respiratory: Denies change in phlegm color, Reports chest congestion, Reports cough, Reports dyspnea, Reports dyspnea on exertion, Denies excessive phlegm production, Denies hemoptysis, Denies pain on inspiration, Denies pain with cough and Denies wheezing *Gastrointestinal Gastrointestinal: Denies abdominal pain, Denies belching and Denies cramping *Musculoskeletal Musculoskeletal: Reports back pain, Reports myalgias and Reports other (No small joint swelling or Pain) *Neurologic Neurologic: Reports weakness Psychiatric Psychiatric: Denies homicidal ideation and Denies suicidal ideation Endocrine Endocrine: Reports fatigue and Denies heat intolerance Hematologic/Lymphatic Hematologic/Lymphatic: Denies easy bleeding and Denies lymphadenopathy Allergic/Immunologic Allergic/Immunologic: Denies itchy eyes, Denies lip swelling, Denies throat swelling and Denies wheezing Pulmonology Exam Inpatient Vital signs and Labs for Last 24 Hours: Temp Pulse Resp BP Pulse Ox O2 Del Method 97.6 F 99 H 19 140/82 95 Room Air 01/11/25 07:49 01/11/25 07:49 01/11/25 07:49 01/11/25 07:49 01/11/25 07:49 01/11/25 09:00 Laboratory Results - last 24 hr 01/10/25 11:39: WBC 11.2 H, RBC 5.22, Hgb 15.5, Hct 47.7, MCV 91.4, MCH 29.7, MCHC 32.5, RDW 14.9, Plt Count 351, MPV 10.2, Neut % (Auto) 64.1, Lymph % (Auto) 25.6, Clinton % (Auto) 8.5, Eos % (Auto) 1.3, Baso % (Auto) 0.2, Neut # (Auto) 7.2, Lymph # (Auto) 2.9, Clinton # (Auto) 1.0, Eos # (Auto) 0.1, Baso # (Auto) 0.0, D-Dimer 0.83 H, Sodium 137, Potassium 5.0, Chloride 97 L, Carbon Dioxide 26, Anion Gap 19.0 H, BUN 26 H, Creatinine 1.30 H, Estimated Creat Clear 52, Estimated GFR 53 L, Est GFR ( Amer) 64, Glucose 276 H, Calcium 9.2, Total Bilirubin 1.0, AST 26, ALT 19, Alkaline Phosphatase 86, Troponin I < 0.01, Total Protein 7.5, Albumin 3.8, Globulin 3.7 H, Albumin/Globulin Ratio 1.0 L, Lipase 80 01/10/25 13:40: Urine Color Yellow, Urine Appearance Clear, Urine pH 6.0, Ur Specific Blanchard 1.010, Urine Protein Negative, Urine Glucose (UA) 3+, Urine Ketones Negative, Urine Blood Negative, Urine Nitrate Negative, Urine Bilirubin Negative, Urine Urobilinogen 0.2, Ur Leukocyte Esterase Negative, Urine WBC 3-5, Urine Bacteria Trace 01/10/25 14:51: Troponin I < 0.01 01/10/25 18:13: Troponin I < 0.01 01/10/25 20:45: POC Glucose 162 H 01/11/25 04:46: WBC 7.7 D, RBC 4.67, Hgb 14.1, Hct 42.5, MCV 91.0, MCH 30.2, MCHC 33.2, RDW 15.1, Plt Count 305, MPV 10.3, Neut % (Auto) 62.7, Lymph % (Auto) 22.3, Clinton % (Auto) 12.1 H, Eos % (Auto) 2.1, Baso % (Auto) 0.4, Neut # (Auto) 4.8, Lymph # (Auto) 1.7, Clinton # (Auto) 0.9, Eos # (Auto) 0.2, Baso # (Auto) 0.0, Sodium 137, Potassium 4.4, Chloride 102, Carbon Dioxide 26, Anion Gap 13.4, BUN 24 H, Creatinine 1.00 D, Estimated Creat Clear 70, Estimated GFR 72, Est GFR ( Amer) 87 D, Glucose 91 D, Calcium 8.8, Magnesium 2.2, Total Bilirubin 0.9, AST 21, ALT 12 D, Alkaline Phosphatase 79, Total Protein 6.4, Albumin 3.2 L D, Globulin 3.2, Albumin/Globulin Ratio 1.0 L, Triglycerides 152 H, Cholesterol 98 L, LDL Cholesterol Direct 38.33 L, VLDL Cholesterol 30, HDL Cholesterol 23 L, Cholesterol/HDL Ratio 4.3 H 01/11/25 05:51: POC Glucose 85 I & O for Labs for Last 24 Hours: Intake & Output 01/08/25 01/09/25 01/10/25 01/11/25 23:59 23:59 23:59 23:59 Intake Total 1650 / 1650 Output Total 300 / 300 250 / 250 Balance -300 / 1050 1400 / 1400 Weight 183 lb 187 lb 8 oz Constitutional: Present moderate distress Head: Present normocephalic and atraumatic ENT: Present normal exam, normal oropharynx and mucous membranes moist Neck: Present normal inspection and full ROM Respiratory: Present respiratory distress, distant breath sounds, diminished air movement and able to speak in complete sentences; Absent wheezes or crackles Cardiac: Present S1/S2, Tachycardia and radial pulses present GI: Present soft and distention; Absent tenderness or guarding Skin: Present intact; Absent cyanosis or jaundice Neuro: Present alert, awake and oriented x 3 Extremities: Present normal inspection; Absent clubbing or cyanosis Psychiatric: Present normal affect and cooperative Meds Home Medications and Allergies Home Medications ?Medication ?Instructions ?Recorded ?Confirmed ?Type glimepiride 4 mg tablet 4 mg PO BID 03/31/18 01/11/25 History clopidogrel 75 mg tablet (Plavix) 75 mg PO DAILY #90 tabs 07/26/19 01/10/25 Rx empagliflozin 25 mg tablet 25 mg PO DAILY 09/21/24 01/10/25 History (Jardiance) apixaban 5 mg tablet (Eliquis) 5 mg PO BID #180 tabs 10/18/24 01/10/25 Rx atorvastatin 40 mg tablet 40 mg PO DAILY 10/26/24 01/11/25 History metoprolol succinate 50 mg 50 mg PO DAILY 10/26/24 01/10/25 History tablet,extended release 24 hr sacubitril 24 mg-valsartan 26 mg 1 tab PO BID 90 days #180 tabs 11/22/24 01/10/25 Rx tablet (Entresto) furosemide 80 mg tablet 80 mg PO DAILY #30 tabs 01/03/25 01/10/25 Rx potassium chloride 20 mEq 40 meq (2 x 20 mEq) PO DAILY 30 01/03/25 01/10/25 Rx tablet,extended days #60 tabs release(part/cryst) (Klor-Con M) metformin 500 mg tablet 1,000 mg PO BID 01/11/25 01/11/25 History nitroglycerin 0.4 mg sublingual 0.4 mg sublingual Q5MINP PRN chest 01/11/25 01/11/25 History tablet pain New Prescriptions to Start Prescriptions: Allergies Allergy/AdvReac Type Severity Reaction Status Date / Time gabapentin AdvReac Mild Dizziness Verified 11/16/24 10:51 Results Laboratory Findings 01/11/25 04:46 01/11/25 04:46 PT/INR, D-dimer D-Dimer 0.83 ug/mL (0.0-0.5) H 01/10/25 11:39 Abnormal lab findings: Abnormal Labs 01/10/25 01/10/25 01/11/25 11:39 20:45 04:46 WBC 11.2 H Clinton % (Auto) 12.1 H D-Dimer 0.83 H Chloride 97 L Anion Gap 19.0 H BUN 26 H 24 H Creatinine 1.30 H Estimated GFR 53 L Glucose 276 H POC Glucose 162 H Albumin 3.2 L D Globulin 3.7 H Albumin/Globulin Ratio 1.0 L 1.0 L Triglycerides 152 H Cholesterol 98 L LDL Cholesterol Direct 38.33 L HDL Cholesterol 23 L Cholesterol/HDL Ratio 4.3 H Assessment and Plan *Assessment and plan (1) Pleural effusion: Status: Acute Category: Medical Code(s): J90 - Pleural effusion, not elsewhere classified (2) Failure to thrive: Status: Acute Category: Medical (3) Lung nodule: Status: Acute Category: Medical Code(s): R91.1 - Solitary pulmonary nodule Plan Mr. Bradshaw is a 79-year-old male last smoked around 1979 around 03-08-dgwi-year smoking history ER with worsening respiratory distress found to have large pleural effusion and pulmonary was called for further evaluation and management. Patient admits to increased fatigue and decreased p.o. intake for the last 1 to 2 weeks CTA upon admission large right pleural effusion with adjacent atelectasis along with possible right hilar mass endobronchial occlusion. Questionable PE/tumor encasement in the right lower lobe pulmonary arterial branches. Patient chest x-ray, CT chest and CT abdomen from August 2024 continue to show right lower lobe infiltrate / round atelectasis, bilateral pleural effusions and most recent CT abdomen from November showed right lower lobe atelectasis along with adjacent airspace disease and right pleural effusion Afebrile. Hemodynamically stable. Neutrophilic predominant leukocytosis upon admission improving. On room air. Currently receiving cefepime and doxycycline Plan: Antibiotics can be weaned to levofloxacin from pulmonary standpoint pending final culture results Status post thoracentesis with removal of 3700 cc of pleural fluid. Continue to receive diuretics. Continue to remain on room air. DuoNebs 4 times daily as needed Will follow with final pleural fluid studies
--- NOTE | 2025-01-11 09:28 | CA_ITS ---
FINAL REPORT CLINICAL HISTORY: SOA, Right Pneumothorax with mass vs old pulmonary embolism, AFib FINDINGS: Multiple transverse and longitudinal scans were performed of the femoral popliteal deep venous system, with augmentation and compression maneuvers. Normal phasic flow was noted in the visualized deep venous system. No intraluminal increased echogenicity is noted to suggest thrombus. There is normal compression and augmentation of the venous structures. No abnormal venous collaterals are seen. IMPRESSION: No evidence of deep venous thrombosis of the bilateral lower extremities. Reviewed, Interpreted and Dictated by Naomi Leach MD Transcribed by Socorro Blair Authenticated and [facility]
--- NOTE | 2025-01-11 10:43 | US_ITS ---
FINAL REPORT CLINICAL HISTORY: Pleural effusion -- RT SIDE -- DR NUNEZ -- 3700ML FINDINGS: ULTRASOUND-GUIDED THORACENTESIS HISTORY: Pleural effusion. TECHNIQUE: Ultrasound guidance was provided for clinical service in performance of a thoracentesis. 3.7 L of fluid were reportedly obtained. IMPRESSION: Technically successful sonographic guided thoracentesis as above. Reviewed, Interpreted and Dictated by Naomi Leach MD Transcribed by YG Araiza Authenticated and . [facility]
--- OUTSIDE RECORDS SUMMARY | 2025-01-11 12:43 | XMS_ITS | Clinical Summary ---
Author Organization [facility] Address [address] [place] [address] Care Team Providers Care Assistant Account Manager Name Role Phone Senthil Clinton MD Primary Care Provider [phone] Allergies Active Allergy Reactions Criticality Noted Date [...] Team Description 10/15/2024 10:00 AM EDT Consult [facility] [address] [phone] Luis Antonio Henson MD Severe aortic stenosis (Primary Dx) 10/15/2024 Refill [facility] [address] [phone] Alison Ortega RN 10/15/2024 Travel 10/13/2024 Abstract [facility] [address] [phone] Selena Farah 10/13/2024 Abstract [facility] [address] [phone] Selena Farah 10/13/2024 Orders Only [facility] [address] [phone] Selena Farah 10/12/2024 Telephone [facility] [address] [phone] Selena Farah from Last 3 Months Family [...] AM EDT Appointment Cardiac Imaging [address] [place] [address] 04/15/2025 10:30 AM EDT Office Visit [facility] [place] [address] [facility] [place] [address] Luis Antonio Henson MD [address] [place] [address] Health Maintenance Due Date Last Done Comments [facility]-Depression Screening 1943 [facility]-/Child/Adol SDOH Screenings 1943 [facility]- SDOH Screenings 1961 [facility]-Adult SDOH Screenings 1961 [facility]-DTaP,Tdap,and Td Vaccines (1 - Tdap) 1962 [facility]-Zoster Vaccines (1 of 2) 1993 [facility]-Pneumococcal Vaccine: 50+ Years (2 of 2 - PPSV23) 04/10/2018 04/10/2017 [id number] Vaccine ( season) 2024 05/10/2024, 05/16/2023, 04/10/2022, [...] to complete this topic Insurance HÉCTOR FLORES [id number] MEDICARE [facility] Care Teams Assistant Account Manager Relationship Specialty Start Date End Date Senthil Clinton MD [address] [place] [id number] PCP - General Internal Medicine 10/15/24
[2025-01-11 13:19] LABS: Lactate Dehydrogenase 165 U/L (313-618)
--- NOTE | 2025-01-11 13:51 | P.PCN_ITS ---
[facility] Procedure Note Date: 01/11/25 Time: 13:51 Procedure Note:: Procedure: Right Thoracentesis Indication for procedure: Pleural Effusion, Hypoxic Respiratory failure A time out was performed, and the chest x-ray was reviewed, the appropriate side was confirmed and marked. My hands were washed immediately prior to the procedure. I wore a surgical cap, mask with protective eyewear, sterile gown, and sterile gloves throughout the procedure. The patient was prepped and draped in a sterile manner using chlorhexidine scrub after the appropriate level was percussed and confirmed by ultrasound. 1% lidocaine was used to anesthetize the skin, ?subcutaneous tissue, superior aspect of the rib periosteum and parietal pleura.? A finder needle was then introduced at the seventh intercoastal space posteriorly?to locate the pleural fluid; straw colored fluid was aspirated. A 10-blade scalpel was used to jack the skin at the insertion site. The Thoracentesis needle was then introduced through the skin incision into the pleural space using negative aspiration pressure to confirm appropriate positioning of the needle. The thoracentesis catheter was then threaded without difficulty.? 3700 ml of straw-colored?fluid was removed without difficulty. The catheter was then removed. No immediate complications were noted during the procedure. A post-procedure chest X-ray is pending at the time of this note. The fluid will be sent for routine pleural studies, cultures along with cytopathology.? Patient tolerated the procedure well? Estimated blood loss is 5cc.
[2025-01-11 13:52] LABS: Appearance,Body Fld. Normal; Source, Body Fld. Thoracentesis Fluid; Volume,Body Fld. 3700 mL
--- NOTE | 2025-01-11 13:52 | XR_ITS ---
FINAL REPORT CLINICAL HISTORY: post procedure thoracentesis COMPARISON: 01/10/2025 FINDINGS: Moderate right effusion has significantly improved. There is been improvement in the right basilar atelectasis. The left lung is clear. There is no pneumothorax. Patient is status post median sternotomy and CABG. Heart size is normal. IMPRESSION: Improvement in the right effusion without pneumothorax. Reviewed, Interpreted and Dictated by Naomi Leach MD Transcribed by Socorro Blair Authenticated and . [facility]
[2025-01-11 13:53] LABS: RBC,Body Fluid 2000 cells/uL (< 10 X 10^3); TNC,Body Fluid 982 cells/uL (< 1000)
[2025-01-11 14:25] LABS: Mononuclear WBCs,Body Fluid 95 %; Polynuclear WBC,Body Fluid 5 %
--- NOTE | 2025-01-11 14:48 | PC.NURSE ---
Aox 3 with periods of confusion noted, on RA, uses urinal, up with assistance times one, fsbg achs, 30g r ac sl, on iv abx, right upper chest back dressing c/d/i, consult to pulmonary, family present.
--- NOTE | 2025-01-11 15:47 | EXP.PN ---
Subjective *Date: 01/11/25 *Time: 15:47 Interval history: Patient doing well, no concerns. Waiting for thoracentesis this morning. Exam Data for Last 24 hours Vital signs and Labs for Last 24 Hours: Temp Pulse Resp BP Pulse Ox O2 Del Method 99.4 F 105 H 16 112/75 93 L Room Air 01/11/25 12:00 01/11/25 12:00 01/11/25 12:00 01/11/25 12:00 01/11/25 12:00 01/11/25 13:00 Laboratory Results - last 24 hr 01/10/25 18:13: Troponin I < 0.01 01/10/25 20:45: POC Glucose 162 H 01/11/25 04:46: WBC 7.7 D, RBC 4.67, Hgb 14.1, Hct 42.5, MCV 91.0, MCH 30.2, MCHC 33.2, RDW 15.1, Plt Count 305, MPV 10.3, Neut % (Auto) 62.7, Lymph % (Auto) 22.3, [place] % (Auto) 12.1 H, Eos % (Auto) 2.1, Baso % (Auto) 0.4, Neut # (Auto) 4.8, Lymph # (Auto) 1.7, [place] # (Auto) 0.9, Eos # (Auto) 0.2, Baso # (Auto) 0.0, Sodium 137, Potassium 4.4, Chloride 102, Carbon Dioxide 26, Anion Gap 13.4, BUN 24 H, Creatinine 1.00 D, Estimated Creat Clear 70, Estimated GFR 72, Est GFR ( Amer) 87 D, Glucose 91 D, Calcium 8.8, Magnesium 2.2, Total Bilirubin 0.9, AST 21, ALT 12 D, Alkaline Phosphatase 79, Lactate Dehydrogenase 165 L, Total Protein 6.4, Albumin 3.2 L D, Globulin 3.2, Albumin/Globulin Ratio 1.0 L, Triglycerides 152 H, Cholesterol 98 L, LDL Cholesterol Direct 38.33 L, VLDL Cholesterol 30, HDL Cholesterol 23 L, Cholesterol/HDL Ratio 4.3 H 01/11/25 05:51: POC Glucose 85 01/11/25 11:30: Fluid Source Thoracentesis fluid, Fluid Volume 3700, Fluid Appearance Normal, Fluid RBC (Auto) 2000, Fld Tot Nucleated Cell 982, Fld Polynuclear WBCs % 5, Fld Mononuclear WBCs % 95 I & O for Last 24 hours: Intake & Output 01/08/25 01/09/25 01/10/25 01/11/25 23:59 23:59 23:59 23:59 Intake Total 1989 Output Total 300 / 300 250 / 250 Balance -300 / 1050 1740 / 1740 Weight 83.007 kg 85 kg Microbiology Reports for the Last 24 Hours: Microbiology 01/11/25 11:30 Pleural Fluid Gram Stain - Final Constitutional Constitutional: no acute distress *Routine HEENT Exam Head: Present normocephalic Eye: Present EOMI and PERRL ENT: Present mucous membranes moist *Routine Neck Exam Neck: Present supple; Absent lymphadenopathy *Routine Respiratory Exam Respiratory: Present CTA bilaterally *Routine Cardiovascular Exam Cardiovascular: Present RRR *Routine Abdominal Exam Abdominal: Present soft and normoactive bowel sounds; Absent tenderness *Routine Extremities Exam Extremities: Absent cyanosis, clubbing or edema *Routine Skin Exam Skin: Present warm; Absent rash *Routine Neurological Exam Neurological: Present alert and oriented X3 Assessment and Plan *Assessment and plan (1) Failure to thrive: Status: Acute Category: Medical (2) Pleural effusion: Status: Acute Category: Medical Code(s): J90 - Pleural effusion, not elsewhere classified Plan Carlos Bradshaw is an 79-year-old male with a complex cardiac history including CABG, STEMI, A-fib, HFrEF as well as type 2 diabetes, GERD who presents to the ED with 1 week onset of progressive weakness and low appetite, and 1 day onset of shortness of breath. Patient and state over the past 3 to 4 months patient has lost about 20 pounds, and has had decreased appetite. This has been more prominent over the past week. Patient denies shortness of breath over the past couple months, but does endorse that today which prompted patient to come to the ED. Former smoker 40 years ago, no personal or known family history of cancer. Workup in the ED significant for CTA chest showing massive right pleural effusion, right lung collapse with right infrahilar suspected malignancy, as well as suspected old PE in the right lower lobe pulmonary branches. Patient is already on Eliquis. On my evaluation of patient, he was lying in bed comfortably without acute distress. On room air. Discussed case with pulmonology and we both agreed to admit patient to our facility for thoracentesis tomorrow. #Massive right pleural effusion #Pulmonary emboli #Suspected malignancy #Former smoker ? Patient has had 20 pound weight loss over the past 3 to 4 months, poor appetite, and significant fatigue over the past week with shortness of breath today. Former smoker quit 40 years ago. ? CTA chest showing massive right pleural effusion, right lung collapse with right infrahilar suspected malignancy, as well as suspected old PE in the right lower lobe pulmonary branches. ? Pulmonology consulted, s/p thoracentesis on 01/11/2025 with 3700 straw-colored output. No complications. Recommended continuing diuretics and weaning antibiotics to levofloxacin. ? Started levofloxacin day 2 of antibiotics, discontinued cefepime and doxycycline. ? Will continue with therapeutic Lovenox for now in case repeat thoracentesis is needed, or if CT-guided biopsy is needed closely after discharge. ? Follow-up pleural studies. Plan for repeat CXR in the morning in case there is recurrence. ? On room air, vital signs stable, comfortable. #History of CABG, STEMI #A-fib #HFrEF #Severe aortic stenosis ? Currently stable. ? Continue home metoprolol succinate 50 mg, Entresto, Jardiance 25 mg. ? Restarted home Plavix, hold home Eliquis and continue with Lovenox for now. #Type 2 diabetes ? Hemoglobin A1c 7.8%. ? LDSSI, ACHS glucose checks. Continue home metformin, Jardiance. #GERD ? Continue home PPI. #Dementia ? states patient has dementia. Patient at this time seems alert and oriented, endorses memory loss. Continue supportive therapy. Full code DVT prophylaxis: Lovenox as above
[2025-01-11 17:41] LABS: POC Glucose,Bedside 120 (70-110)
--- NOTE | 2025-01-11 20:10 | PC.NURSE ---
New IV placed by ultrasound, 20g in Right Forearm.
[2025-01-11] MEDS: ENOXAPARIN 100MG/ML SYRINGE 85 MG SUBCUT (20:11)
--- NOTE | 2025-01-11 20:18 | PC.NURSE ---
patient was getting ultrasound IV placed when vitals were taken, may be the cause of tachycardia . nurse is aware 2019
[2025-01-11] MEDS: humaLOG 100 UNITS/ML 10ML VIAL (SSI) SUBCUT (20:21)
[2025-01-12] VITALS: BP 101/70; PULSE 114; RESP 18; TEMP 36.5; O2SAT 96
[2025-01-12 02:00] VITALS: PULSE 100
[2025-01-12] MEDS: CEFEPIME HCL 2 GM in 0.9 % SODIUM CHLORIDE 100 ML IV ×2 (02:27→10:11)
[2025-01-12 03:26] LABS: POC Glucose,Bedside 165 (70-110)
[2025-01-12 04:00] VITALS: BP 107/60; PULSE 100; PULSE 103; RESP 15; TEMP 36.7; O2SAT 93; BMI 25.5
--- NOTE | 2025-01-12 04:05 | PC.NURSE ---
Blue bags in patient's room was not full and did not need taking out. Pt does not need anything at this time with call light nearby. 04:05
[2025-01-12 05:34] LABS: Alanine Aminotransferase 12 U/L (12-78); Albumin Level 3.2 g/dl (3.5-5.0); Alkaline Phosphatase 71 U/L (38-126); Anion Gap 11.9 mEq/L (5-15); Aspartate Amino Transferase 23 U/L (17-59); Bilirubin,Total 1.2 mg/dl (0.2-1.3); Blood Urea Nitrogen 23 mg/dl (9-20); Calcium 9.1 mg/dl (8.4-10.2); Carbon Dioxide 26 mmol/L (22.0-30.0); Chloride 101 mmol/L (98-107); Creatinine Clearance Estimated 66 mL/min (50-200); Estimated Glomerular Filt Rate 81 ml/min (>60); GFR (African American) 98 ML/MIN (>60); Globulin 3.1 g/dL (1.3-3.2); Glucose 68 mg/dl (74-100); Magnesium 1.9 mg/dl (1.6-2.3); Potassium 3.9 mmoL/L (3.5-5.1); Sodium 135 mmol/L (136-145); Total Protein,Serum 6.3 g/dl (6.3-8.2)
[2025-01-12 05:52] LABS: Basophils % 0.3 % (0.1-2.0); Eosinophils # 0.3 Kmm3 (0.0-0.4); Eosinophils % 2.9 % (0.1-12.0); Hematocrit 44.3 % (42.0-52.0); Hemoglobin 14.5 g/dL (14.1-18.0); Immature Granulocytes # 0.03 10^3uL; Immature Granulocytes % 0.3 %; Lymphocytes # 1.6 K/mm3 (0.7-4.5); Lymphocytes % 18.3 % (10-50); Mean Corpuscular HGB Conc 32.7 g/dL (31.8-35.4); Mean Corpuscular Hemoglobin 29.7 pg (27.0-31.2); Mean Corpuscular Volume 90.6 fl (80-94); Mean Platelet Volume 10.5 fl (7.4-10.4); Monocytes % 11.7 % (1.7-9.3); Neutrophils # 5.8 K/mm3 (1.8-7.8); Neutrophils % 66.5 % (37.0-80.0); Nucleated Red Blood Cells # 0 10^3/uL; Nucleated Red Blood Cells % 0 %; Platelet Count 308 K/mm3 (142-424); Red Blood Count 4.89 M/mm3 (4.60-6.20); Red Cell Distribution Width 14.9 % (11.5-17.5); Red Cell Distribution Width-SD 49.7 fL; White Blood Count 8.7 K/mm3 (4.8-10.8)
--- NOTE | 2025-01-12 05:58 | PC.NURSE ---
Water pitcher was filled, table wiped, and linen and trash bags were empty if full. Patient does not need anything at this time. 05:58
[2025-01-12] MEDS: DOXYCYCLINE HYCLATE 100 MG in 0.9 % SODIUM CHLORIDE 250 ML 166.667 MG IV (06:26)
--- NOTE | 2025-01-12 06:32 | PC.NURSE ---
Addendum entered by Marilyn Paul RN 01/12/25 06:53: Recheck glucose 78. Original Note: FS 61, gave patient juice. Patient states he feels fine.
--- NOTE | 2025-01-12 06:35 | PC.NURSE ---
Alert to self only. Patient unsure of year and believes he is in [place], reoriented, patient still believes he is in [place]. New IV placed per previous note. No complaints from patient this shift. IV abx given per sep. Uses restroom with 1 assist. Post thoracentesis, bandage to right side of back, CDI. Room air, O2 sat >90%. Bed alarm on and working. Call light in reach.
[2025-01-12 06:59] LABS: POC Glucose,Bedside 78 (70-110)
[2025-01-12 08:00] VITALS: BP 124/58; PULSE 105; PULSE 110; RESP 17; TEMP 36.3; O2SAT 93
[2025-01-12] MEDS: SACUBITRIL/VALSARTAN 24-26MG TABLET 1 EACH PO (09:34)
[2025-01-12] MEDS: EMPAGLIFLOZIN 25MG TABLET 25 MG PO (09:34)
[2025-01-12] MEDS: METOPROLOL SUCCINATE XL 50MG TABLET 50 MG PO (09:34)
[2025-01-12] MEDS: METFORMIN 500MG TABLET 1000 MG PO (09:34)
[2025-01-12] MEDS: ENOXAPARIN 100MG/ML SYRINGE 85 MG SUBCUT (09:34)
[2025-01-12] MEDS: FUROSEMIDE 80 MG TABLET PO (09:34)
--- NOTE | 2025-01-12 09:49 | P.PN_ITS ---
Subjective *Date: 01/12/25 *Time: 11:30 Interval history: No acute respiratory vents overnight. Patient admits improving respiratory distress Pulmonology Exam Inpatient Vital signs and Labs for Last 24 Hours: Temp Pulse Resp BP Pulse Ox O2 Del Method 97.3 F L 105 H 17 124/58 L 93 L Room Air 01/12/25 08:00 01/12/25 08:00 01/12/25 08:00 01/12/25 08:00 01/12/25 08:00 01/12/25 09:00 Laboratory Results - last 24 hr 01/11/25 04:46: Lactate Dehydrogenase 165 L 01/11/25 11:30: Fluid Source Thoracentesis fluid, Fluid Volume 3700, Fluid Appearance Normal, Fluid RBC (Auto) 2000, Fld Tot Nucleated Cell 982, Fld Polynuclear WBCs % 5, Fld Mononuclear WBCs % 95 01/11/25 16:39: POC Glucose 120 H 01/11/25 20:16: POC Glucose 165 H 01/12/25 04:38: WBC 8.7, RBC 4.89, Hgb 14.5, Hct 44.3, MCV 90.6, MCH 29.7, MCHC 32.7, RDW 14.9, Plt Count 308, MPV 10.5 H, Neut % (Auto) 66.5, Lymph % (Auto) 18.3, [place] % (Auto) 11.7 H, Eos % (Auto) 2.9, Baso % (Auto) 0.3, Neut # (Auto) 5.8, Lymph # (Auto) 1.6, [place] # (Auto) 1.0, Eos # (Auto) 0.3, Baso # (Auto) 0.0, Sodium 135 L, Potassium 3.9, Chloride 101, Carbon Dioxide 26, Anion Gap 11.9, BUN 23 H, Creatinine 0.90, Estimated Creat Clear 66, Estimated GFR 81, Est GFR ( Amer) 98, Glucose 68 L D, Calcium 9.1, Magnesium 1.9 D, Total Bilirubin 1.2, AST 23, ALT 12, Alkaline Phosphatase 71, Total Protein 6.3, Albumin 3.2 L, Globulin 3.1, Albumin/Globulin Ratio 1.0 L 01/12/25 06:52: POC Glucose 78 Temp Pulse Resp BP Pulse Ox O2 Del Method 97.6 F 99 H 19 140/82 95 Room Air 01/11/25 07:49 01/11/25 07:49 01/11/25 07:49 01/11/25 07:49 01/11/25 07:49 01/11/25 09:00 Laboratory Results - last 24 hr 01/10/25 11:39: WBC 11.2 H, RBC 5.22, Hgb 15.5, Hct 47.7, MCV 91.4, MCH 29.7, MCHC 32.5, RDW 14.9, Plt Count 351, MPV 10.2, Neut % (Auto) 64.1, Lymph % (Auto) 25.6, [place] % (Auto) 8.5, Eos % (Auto) 1.3, Baso % (Auto) 0.2, Neut # (Auto) 7.2, Lymph # (Auto) 2.9, [place] # (Auto) 1.0, Eos # (Auto) 0.1, Baso # (Auto) 0.0, D- [place] 0.83 H, Sodium 137, Potassium 5.0, Chloride 97 L, Carbon Dioxide 26, Anion Gap 19.0 H, BUN 26 H, Creatinine 1.30 H, Estimated Creat Clear 52, Estimated GFR 53 L, Est GFR ( Amer) 64, Glucose 276 H, Calcium 9.2, Total Bilirubin 1.0, AST 26, ALT 19, Alkaline Phosphatase 86, Troponin I < 0.01, Total Protein 7.5, Albumin 3.8, Globulin 3.7 H, Albumin/Globulin Ratio 1.0 L, Lipase 80 01/10/25 13:40: Urine Color Yellow, Urine Appearance Clear, Urine pH 6.0, Ur Specific [place] 1.010, Urine Protein Negative, Urine Glucose (UA) 3+, Urine Ketones Negative, Urine Blood Negative, Urine Nitrate Negative, Urine Bilirubin Negative, Urine Urobilinogen 0.2, Ur Leukocyte Esterase Negative, Urine WBC 3-5, Urine Bacteria Trace 01/10/25 14:51: Troponin I < 0.01 01/10/25 18:13: Troponin I < 0.01 01/10/25 20:45: POC Glucose 162 H 01/11/25 04:46: WBC 7.7 D, RBC 4.67, Hgb 14.1, Hct 42.5, MCV 91.0, MCH 30.2, MCHC 33.2, RDW 15.1, Plt Count 305, MPV 10.3, Neut % (Auto) 62.7, Lymph % (Auto) 22.3, [place] % (Auto) 12.1 H, Eos % (Auto) 2.1, Baso % (Auto) 0.4, Neut # (Auto) 4.8, Lymph # (Auto) 1.7, [place] # (Auto) 0.9, Eos # (Auto) 0.2, Baso # (Auto) 0.0, Sodium 137, Potassium 4.4, Chloride 102, Carbon Dioxide 26, Anion Gap 13.4, BUN 24 H, Creatinine 1.00 D, Estimated Creat Clear 70, Estimated GFR 72, Est GFR ( Amer) 87 D, Glucose 91 D, Calcium 8.8, Magnesium 2.2, Total Bilirubin 0.9, AST 21, ALT 12 D, Alkaline Phosphatase 79, Total Protein 6.4, Albumin 3.2 L D, Globulin 3.2, Albumin/Globulin Ratio 1.0 L, Triglycerides 152 H, Cholesterol 98 L, LDL Cholesterol Direct 38.33 L, VLDL Cholesterol 30, HDL Cholesterol 23 L, Cholesterol/HDL Ratio 4.3 H 01/11/25 05:51: POC Glucose 85 I & O for Labs for Last 24 Hours: Intake & Output 01/09/25 01/10/25 01/11/25 01/12/25 23:59 23:59 23:59 23:59 Intake Total 2630 / 3080 690 / 690 Output Total 300 / 300 250 / 250 Balance -300 / 1050 2380 / 2830 690 / 690 Weight 183 lb 187 lb 6.287 oz 178 lb 11.2 oz Intake & Output 01/08/25 01/09/25 01/10/25 01/11/25 23:59 23:59 23:59 23:59 Intake Total 1650 / 1650 Output Total 300 / 300 250 / 250 Balance -300 / 1050 1400 / 1400 Weight 183 lb 187 lb 8 oz Microbiology Reports for the Last 24 Hours: Microbiology 01/11/25 11:30 Pleural Fluid Gram Stain - Final 01/11/25 11:30 Pleural Fluid Body Fluid Culture - Preliminary NO GROWTH AFTER 24 HOURS Constitutional: Present moderate distress Head: Present normocephalic and atraumatic ENT: Present normal exam, normal oropharynx and mucous membranes moist Neck: Present normal inspection and full ROM Respiratory: Present respiratory distress and able to speak in complete sentences; Absent wheezes or crackles Cardiac: Present S1/S2, Tachycardia and radial pulses present GI: Present soft and distention; Absent tenderness or guarding Skin: Present intact; Absent cyanosis or jaundice Neuro: Present alert, awake and oriented x 3 Extremities: Present normal inspection; Absent clubbing or cyanosis Psychiatric: Present normal affect and cooperative Assessment and Plan *Assessment and plan (1) Pleural effusion: Status: Acute Category: Medical Code(s): J90 - Pleural effusion, not elsewhere classified (2) Failure to thrive: Status: Acute Category: Medical (3) Lung nodule: Status: Acute Category: Medical Code(s): R91.1 - Solitary pulmonary nodule (4) Pulmonary embolism: Status: Acute Category: Medical Code(s): I26.99 - Other pulmonary embolism without acute cor pulmonale Plan Mr. Bradshaw is a 79-year-old male last smoked around 1979 around 47-60-vife-year smoking history ER with worsening respiratory distress found to have large pleural effusion and pulmonary was called for further evaluation and management. Patient admits to increased fatigue and decreased p.o. intake for the last 1 to 2 weeks CTA upon admission large right pleural effusion with adjacent atelectasis along with possible right hilar mass endobronchial occlusion. Questionable PE/tumor encasement in the right lower lobe pulmonary arterial branches. Patient chest x-ray, CT chest and CT abdomen from August 2024 continue to show right lower lobe infiltrate / round atelectasis, bilateral pleural effusions and most recent CT abdomen from November showed right lower lobe atelectasis along with adjacent airspace disease and right pleural effusion Afebrile. Hemodynamically stable. Neutrophilic predominant leukocytosis upon admission improving. On room air. Interval update: No acute respiratory events overnight. Status post thoracentesis with removal of 3700 cc straw-colored pleural fluid. Continue to remain on room air. Pleural fluid studies pending. Chest x-ray postthoracentesis showed small right pleural effusion, significantly improved from prior. Pleural fluid cultures no growth so far. Continue to receive cefepime. Lower extremity venous Doppler negative for DVT. Given CT PE less concerning for acute pulmonary embolism and lower EXTR Doppler negative, will discontinue full dose anticoagulation therapy at this point of time Plan: Incentive spirometry and flutter valve Antibiotics can be weaned to levofloxacin from pulmonary standpoint to complete a total of 5-day course Albuterol every 6 as needed for shortness of breath or wheezing Will follow with final pleural fluid studies Discontinue full dose anticoagulation initially started for presumed PE. Will consider outpatient repeat CT PE protocol.. Thank you for involving pulmonary in patient care. Will follow the patient in pulmonary clinic 5 to 7 days postdischarge.
[2025-01-12 10:20] LABS: POC Glucose,Bedside 134 (70-110)
--- NOTE | 2025-01-12 10:41 | P.DS_ITS ---
General Admission date:: 01/10/25 Discharge date: 01/12/25 HPI HPI HPI: Carlos Bradshaw is an 79-year-old male with a complex cardiac history including CABG, STEMI, A-fib, HFrEF as well as type 2 diabetes, GERD who presents to the ED with 1 week onset of progressive weakness and low appetite, and 1 day onset of shortness of breath. Patient and state over the past 3 to 4 months patient has lost about 20 pounds, and has had decreased appetite. This has been more prominent over the past week. Patient denies shortness of breath over the past couple months, but does endorse that today which prompted patient to come to the ED. Former smoker 40 years ago, no personal or known family history of cancer. Workup in the ED significant for CTA chest showing massive right pleural effusion, right lung collapse with right infrahilar suspected malignancy, as well as suspected old PE in the right lower lobe pulmonary branches. Patient is already on Eliquis. On my evaluation of patient, he was lying in bed comfortably without acute distress. On room air. Discussed case with pulmonology and we both agreed to admit patient to our facility for thoracentesis tomorrow. Hospital Course Hospital Course Hospital Course: Carlos Bradshaw is an 79-year-old male with a complex cardiac history including CABG, STEMI, A-fib, HFrEF as well as type 2 diabetes, GERD who presents to the ED with 1 week onset of progressive weakness and low appetite, and 1 day onset of shortness of breath. Patient and state over the past 3 to 4 months patient has lost about 20 pounds, and has had decreased appetite. This has been more prominent over the past week. Patient denies shortness of breath over the past couple months, but does endorse that today which prompted patient to come to the ED. Former smoker 40 years ago, no personal or known family history of cancer. Workup in the ED significant for CTA chest showing massive right pleural effusion, right lung collapse with right infrahilar suspected malignancy, as well as suspected old PE in the right lower lobe pulmonary branches. Patient is already on Eliquis. On my evaluation of patient, he was lying in bed comfortably without acute distress. On room air. Discussed case with pulmonology and we both agreed to admit patient to our facility for thorace ntesis. Procedure performed on 01/11. Remained stable on room air after procedure. Stable to discharge home to complete antibiotic course while awaiting pleural fluid studies #Massive right pleural effusion #Pulmonary emboli #Suspected malignancy #Former smoker ? Patient has had 20 pound weight loss over the past 3 to 4 months, poor appetite, and significant fatigue over the past week with shortness of breath today. Former smoker quit 40 years ago. CTA chest showing massive right pleural effusion, right lung collapse with right infrahilar suspected malignancy versus atelectasis. Pulmonology consulted and assisted with care. Status post thoracentesis on 01/11/2025 with 3700 straw-colored output. No complications. Recommended continuing diuretics and weaning antibiotics to levofloxacin. Will complete 5 days total of antibiotics. 2 days of levofloxacin sent at discharge. Remained stable on room air. Follow-up with pulmonology in 1 week. Continue incentive spirometry and flutter valve. Albuterol every 6 hours as needed for shortness of breath. No need for further anticoagulation for PE. Continue for A-fib below as patient presented on apixaban from home. #History of CABG, STEMI #A-fib #HFrEF #Severe aortic stenosis ? Currently stable. Continue home metoprolol succinate 50 mg, Entresto, Jardiance 25 mg. Will resume home Plavix and Eliquis at discharge. Treated with Lovenox during admission. #Type 2 diabetes ? Hemoglobin A1c 7.8%. Continue home metformin, Jardiance. #GERD: Continue home PPI. #Dementia: states patient has dementia. Patient at this time seems alert and oriented, endorses memory loss. Continue supportive therapy. Total time spent on discharge 32 minutes in counseling, documentation, chart review, and direct care with patient. Exam Data for Last 24 hours Vital signs and Labs for Last 24 Hours: Temp Pulse Resp BP Pulse Ox O2 Del Method 97.3 F L 105 H 17 124/58 L 93 L Room Air 01/12/25 08:00 01/12/25 08:00 01/12/25 08:00 01/12/25 08:00 01/12/25 08:00 01/12/25 09:00 Laboratory Results - last 24 hr 01/11/25 04:46: Lactate Dehydrogenase 165 L 01/11/25 11:30: Fluid Source Thoracentesis fluid, Fluid Volume 3700, Fluid Appearance Normal, Fluid RBC (Auto) 2000, Fld Tot Nucleated Cell 982, Fld Polynuclear WBCs % 5, Fld Mononuclear WBCs % 95 01/11/25 16:39: POC Glucose 120 H 01/11/25 20:16: POC Glucose 165 H 01/12/25 04:38: WBC 8.7, RBC 4.89, Hgb 14.5, Hct 44.3, MCV 90.6, MCH 29.7, MCHC 32.7, RDW 14.9, Plt Count 308, MPV 10.5 H, Neut % (Auto) 66.5, Lymph % (Auto) 18.3, Hanson % (Auto) 11.7 H, Eos % (Auto) 2.9, Baso % (Auto) 0.3, Neut # (Auto) 5.8, Lymph # (Auto) 1.6, Hanson # (Auto) 1.0, Eos # (Auto) 0.3, Baso # (Auto) 0.0, Sodium 135 L, Potassium 3.9, Chloride 101, Carbon Dioxide 26, Anion Gap 11.9, BUN 23 H, Creatinine 0.90, Estimated Creat Clear 66, Estimated GFR 81, Est GFR ( Amer) 98, Glucose 68 L D, Calcium 9.1, Magnesium 1.9 D, Total Bilirubin 1.2, AST 23, ALT 12, Alkaline Phosphatase 71, Total Protein 6.3, Albumin 3.2 L, Globulin 3.1, Albumin/Globulin Ratio 1.0 L 01/12/25 06:52: POC Glucose 78 01/12/25 10:09: POC Glucose 134 H I & O for Last 24 hours: Intake & Output 01/09/25 01/10/25 01/11/25 01/12/25 23:59 23:59 23:59 23:59 Intake Total 2630 / 3080 790 / 790 Output Total 300 / 300 250 / 250 Balance -300 / 1050 2380 / 2830 790 / 790 Weight 83.007 kg 85 kg 81.057 kg Microbiology Reports for the Last 24 Hours: Microbiology 01/11/25 11:30 Pleural Fluid Gram Stain - Final 01/11/25 11:30 Pleural Fluid Body Fluid Culture - Preliminary NO GROWTH AFTER 24 HOURS Constitutional Constitutional: no acute distress, average body habitus and cooperative *Routine HEENT Exam Head: Present normocephalic Eye: Present EOMI and PERRL ENT: Present mucous membranes moist *Routine Neck Exam Neck: Present supple; Absent lymphadenopathy *Routine Respiratory Exam Respiratory: Present crackles (Right lower lung field); Absent accessory muscle use, rhonchi, stridor or wheezes *Routine Cardiovascular Exam Cardiovascular: Present RRR *Routine Abdominal Exam Abdominal: Present soft and normoactive bowel sounds; Absent tenderness *Routine Rectal Exam Patient deferred: visual exam *Routine Exam Patient deferred: penile exam *Routine Extremities Exam Extremities: Absent cyanosis, clubbing or edema *Routine Skin Exam Skin: Present warm; Absent rash *Routine Neurological Exam Neurological: Present alert, oriented X3 and moving all extremities; Absent altered mental status Results Data Completed and Pending Labs on day of discharge: Labs from last 24 hours 01/12/25 01/12/25 01/12/25 10:09 06:52 04:38 WBC 8.7 RBC 4.89 Hgb 14.5 Hct 44.3 MCV 90.6 MCH 29.7 MCHC 32.7 RDW 14.9 Plt Count 308 MPV 10.5 H Neut % (Auto) 66.5 Lymph % (Auto) 18.3 Hanson % (Auto) 11.7 H Eos % (Auto) 2.9 Baso % (Auto) 0.3 Neut # (Auto) 5.8 Lymph # (Auto) 1.6 Hanson # (Auto) 1.0 Eos # (Auto) 0.3 Baso # (Auto) 0.0 Sodium 135 L Potassium 3.9 Chloride 101 Carbon Dioxide 26 Anion Gap 11.9 BUN 23 H Creatinine 0.90 Estimated Creat Clear 66 Estimated GFR 81 Est GFR ( Amer) 98 Glucose 68 L D POC Glucose 134 H 78 Calcium 9.1 Magnesium 1.9 D Total Bilirubin 1.2 AST 23 ALT 12 Alkaline Phosphatase 71 Lactate Dehydrogenase Total Protein 6.3 Albumin 3.2 L Globulin 3.1 Albumin/Globulin Ratio 1.0 L Fluid Source Fluid Volume Fluid Appearance Fluid RBC (Auto) Fld Tot Nucleated Cell Fld Polynuclear WBCs % Fld Mononuclear WBCs % 01/11/25 01/11/25 01/11/25 20:16 16:39 11:30 WBC RBC Hgb Hct MCV MCH MCHC RDW Plt Count MPV Neut % (Auto) Lymph % (Auto) Hanson % (Auto) Eos % (Auto) Baso % (Auto) Neut # (Auto) Lymph # (Auto) Hanson # (Auto) Eos # (Auto) Baso # (Auto) Sodium Potassium Chloride Carbon Dioxide Anion Gap BUN Creatinine Estimated Creat Clear Estimated GFR Est GFR ( Amer) Glucose POC Glucose 165 H 120 H Calcium Magnesium Total Bilirubin AST ALT Alkaline Phosphatase Lactate Dehydrogenase Total Protein Albumin Globulin Albumin/Globulin Ratio Fluid Source Thoracentesis fluid Fluid Volume 3700 Fluid Appearance Normal Fluid RBC (Auto) 2000 Fld Tot Nucleated Cell 982 Fld Polynuclear WBCs % 5 Fld Mononuclear WBCs % 95 01/11/25 04:46 WBC RBC Hgb Hct MCV MCH MCHC RDW Plt Count MPV Neut % (Auto) Lymph % (Auto) Hanson % (Auto) Eos % (Auto) Baso % (Auto) Neut # (Auto) Lymph # (Auto) Hanson # (Auto) Eos # (Auto) Baso # (Auto) Sodium Potassium Chloride Carbon Dioxide Anion Gap BUN Creatinine Estimated Creat Clear Estimated GFR Est GFR ( Amer) Glucose POC Glucose Calcium Magnesium Total Bilirubin AST ALT Alkaline Phosphatase Lactate Dehydrogenase 165 L Total Protein Albumin Globulin Albumin/Globulin Ratio Fluid Source Fluid Volume Fluid Appearance Fluid RBC (Auto) Fld Tot Nucleated Cell Fld Polynuclear WBCs % Fld Mononuclear WBCs % Preliminary micro results at discharge 01/11/25 11:30 Body Fluid Culture - Preliminary Pleural Fluid NO GROWTH AFTER 24 HOURS DS: Diagnosis Discharge Diagnosis (1) Pleural effusion: Status: Acute Code(s): J90 - Pleural effusion, not elsewhere classified (2) Failure to thrive: Status: Acute (3) Lung nodule: Status: Acute Code(s): R91.1 - Solitary pulmonary nodule (4) HFrEF (heart failure with reduced ejection fraction): Status: Acute Code(s): I50.20 - Unspecified systolic (congestive) heart failure (5) S/P CABG x 3: Status: Acute Code(s): Z95.1 - Presence of aortocoronary bypass graft (6) Afib: Status: Acute Code(s): I48.91 - Unspecified atrial fibrillation Qualifiers: Atrial fibrillation type: unspecified Qualified Code(s): I48.91 - Unspecified atrial fibrillation (7) Hypertension: Status: Acute Code(s): I10 - Essential (primary) hypertension Qualifiers: Hypertension type: essential hypertension Qualified Code(s): I10 - Essential (primary) hypertension (8) Diabetes mellitus: Status: Acute Code(s): E11.9 - Type 2 diabetes mellitus without complications Qualifiers: Diabetes mellitus type: type 2 Diabetes mellitus chcf insulin use: without prototype technician use Diabetes mellitus complication status: with circulatory complication Diabetes mellitus complication detail: with other circulatory complications Qualified Code(s): E11.59 - Type 2 diabetes mellitus with other circulatory complications (9) HLD (hyperlipidemia): Status: Chronic Code(s): E78.5 - Hyperlipidemia, unspecified Qualifiers: Hyperlipidemia type: mixed hyperlipidemia Qualified Code(s): E78.2 - Mixed hyperlipidemia (10) CAD (coronary artery disease): Status: Chronic Code(s): I25.10 - Atherosclerotic heart disease of [place] coronary artery without angina pectoris Qualifiers: Coronary Disease-Associated Artery/Lesion type: [place] artery [place] vs. transplanted heart: [place] heart Associated angina: without angina Qualified Code(s): I25.10 - Atherosclerotic heart disease of [place] coronary artery without angina pectoris Meds Home Medications and Allergies Home Medications ?Medication ?Instructions ?Recorded ?Confirmed ?Type glimepiride 4 mg tablet 4 mg PO BID 03/31/18 5 History clopidogrel 75 mg tablet (Plavix) 75 mg PO DAILY #90 t abs 07/26/19 01/10/25 Rx empagliflozin 25 mg tablet 25 mg PO DAILY 09/21/24 History (Jardiance) apixaban 5 mg tablet (Eliquis) 5 mg PO BID #180 tabs 0 10/18/24 01/10/25 Rx atorvastatin 40 mg tablet 40 mg PO DAILY 10/26/2412/20 History metoprolol succinate 50 mg 50 mg PO DAILY 10/26/24 History tablet,extended release 24 hr sacubitril 24 mg-valsartan 26 mg 1 tab PO BID 90 days #180 tabs 11/22/24 01/10/25 Rx tablet (Entresto) furosemide 80 mg tablet 80 mg PO DAILY #30 tabs 12/1901/10/25 Rx potassium chloride 20 mEq 40 meq (2 x 20 mEq) PO DAILY 30 01/03/25 01/10/25 Rx tablet,extended days #60 tabs release(part/cryst) (Klor-Con M) metformin 500 mg tablet 1,000 mg PO BID 01/11/25 History nitroglycerin 0.4 mg sublingual 0.4 mg sublingual Q5MI [employer] PRN chest 01/11/25 01/11/25 History tablet pain levofloxacin 750 mg tablet 750 mg PO DAILY 2 days #2 t abs 01/12/25 Rx New Prescriptions to Start Prescriptions: evelynfloxacin Eusebio Bunch Allergies Allergy/AdvReac Type Severity Reaction Status Date / Time gabapentin AdvReac Mild Dizziness Verified 11/16/24 10:51 Discharge Plan Disposition Patient Disposition: Home, Self-Care Condition: Fair Discharge Order Discharge Orders: Discharge Order (Routine); Ordered 01/12/25 Ordered By: Eusebio Bunch Follow up Plan Follow up with: Martín Hoover MD [Physician, Pulmonology] - 01/24/25 1:00 pm Malissa Kilgoer APRN [Primary Care Provider, Medical] - 01/20/25 8:30 am Prescriptions/Medication Reconciliation: New levofloxacin 750 mg tablet 750 mg PO DAILY 2 Days Qty: 2 0RF Continued Jardiance 25 mg tablet 25 mg PO DAILY metoprolol succinate 50 mg tablet extended release 24 hr 50 mg PO DAILY atorvastatin 40 mg tablet 40 mg PO DAILY clopidogrel [Plavix] 75 mg tablet 75 mg PO DAILY Qty: 90 2RF Eliquis 5 mg tablet 5 mg PO BID Qty: 180 3RF Entresto 24-26 mg tablet 1 tab PO BID 90 Days Qty: 180 2RF potassium chloride [Klor-Con M20] 20 mEq tablet,ER particles/crystals 40 meq PO DAILY 30 Days Qty: 60 2RF furosemide 80 mg tablet 80 mg PO DAILY Qty: 30 2RF metformin 500 mg tablet 1,000 mg PO BID nitroglycerin 0.4 mg tablet, sublingual 0.4 mg SUBLINGUAL Q5MINP PRN (Reason: chest pain) Rx Instructions: take one tab sublingual for chest pain, may repeat every 5 minutes, max three tabs glimepiride 4 MG tablet 4 mg PO BID Problem Reconciliation Problems Reviewed?: Yes Patient Discharge Instructions ACTIVITY: Continue current activity DIET: continue same diet Patient Instructions: Pleural Effusion, Heart Failure, DI for Thoracentesis, DI for Surgical Site Infection, DI for Pleural Effusion, Stop Light Heart Failure Print Language: Dominican Providers Primary Care Provider: Malissa Kilgore Admit Provider: Luis Antonio Bernal Attending Provider: Luis Antonio Bernal
[2025-01-12] MEDS: LEVOFLOXACIN/D5W 750 MG/150 ML 750 MG/150 ML PIGGYBACK 100 MG IV (11:50)
[2025-01-12 12:00] VITALS: BP 126/71; PULSE 113; PULSE 90; RESP 17; TEMP 36.6; O2SAT 92
[2025-01-12 13:19] LABS: Albumin, Body Fluid 2.8 g/dL (Not Estab.); Glucose, Body Fluid 90 mg/dL (.); LD, Body Fluid 346 IU/L (.); Protein, Body Fluid 4.5 g/dL (.)
--- NOTE | 2025-01-13 13:06 | CARE MANAGER ---
Called and spoke with patient's , who states that he is doing well. Has started new antibiotic and aware of scheduled f/u appts.
[2025-01-14 08:18] LABS: POC Glucose,Bedside 61 (70-110)
[2025-01-14 08:21] LABS: POC Glucose,Bedside 118 (70-110)
== END 2025-01-12 15:30 | disposition home or self-care (01) | DRG 180 ==
LOC: ER 12:00 → 2ND 17:28
PROVIDERS: Internal Medicine Pulmonary Disease; Admitting Provider Student in an Organized Health Care Education/Training Program; Emergency Provider Student in an Organized Health Care Education/Training Program; PCP Nurse Practitioner Family; Visit Provider Student in an Organized Health Care Education/Training Program
DX: C34.01 Malignant neoplasm of right main bronchus (principal); E43 Unspecified severe protein-calorie malnutrition; I50.22 Chronic systolic (congestive) heart failure; N17.9 Acute kidney failure, unspecified; J98.19 Other pulmonary collapse; I27.82 Chronic pulmonary embolism; J98.11 Atelectasis; J91.0 Malignant pleural effusion; E86.0 Dehydration; I25.10 Atherosclerotic heart disease of native coronary artery without angina pectoris; I48.91 Unspecified atrial fibrillation; I35.0 Nonrheumatic aortic (valve) stenosis; I11.0 Hypertensive heart disease with heart failure; E11.65 Type 2 diabetes mellitus with hyperglycemia; K21.9 Gastro-esophageal reflux disease without esophagitis; R62.7 Adult failure to thrive; F03.90 Unspecified dementia, unspecified severity, without behavioral disturbance, psychotic disturbance, mood disturbance, and anxiety; E78.5 Hyperlipidemia, unspecified; I25.2 Old myocardial infarction; Z87.01 Personal history of pneumonia (recurrent); Z79.84 Long term (current) use of oral hypoglycemic drugs; Z79.899 Other long term (current) drug therapy; Z88.8 Allergy status to other drugs, medicaments and biological substances; Z80.9 Family history of malignant neoplasm, unspecified; Z82.49 Family history of ischemic heart disease and other diseases of the circulatory system; Z87.891 Personal history of nicotine dependence; Z95.1 Presence of aortocoronary bypass graft; Z79.02 Long term (current) use of antithrombotics/antiplatelets; Z68.25 Body mass index [BMI] 25.0-25.9, adult; Z79.01 Long term (current) use of anticoagulants
CPT/HCPCS: 32555; 36415; 70450; 71045; 71275; 80053; 80061; 81001; 82042; 82945; 82962; 83615; 83690; 83735; 84155; 84484; 85025; 85378; 87070; 87077; 87186; 87205; 89051; 93005; 93970; J0692; J1650; J1956; J7050; J7120; Q9967

== ENCOUNTER 2025-01-19 11:11 | Observation (INO) | payer MEDICARE, SELFPAY ==
[2025-01-19] VITALS (27 sets, daily range): BP systolic 85–123; BP diastolic 45–84; PULSE 80–132; RESP 16–23; TEMP 36.5–37.1; O2SAT 90–100; BMI 24.3
--- OUTSIDE RECORDS SUMMARY | 2025-01-19 11:20 | XMS_ITS | Clinical Summary ---
Author Organization [facility] Address [address] 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 [place] [address] Luis Antonio Henson MD [address] [place] [phone] Health Maintenance Due Date Last Done Comments [facility]-Diabetes: Hemoglobin A1C 1943 [facility]-Medicare Annual Wellness (AWV) 1945 [facility]-Infant/Child/Adol SDOH Screenings 1943 Diabetes: Dental Exam 1953 [facility]- SDOH Screenings 1961 [facility]-Adult SDOH Screenings 1961 [facility]-DTaP,Tdap,and Td Vaccines (1 - Tdap) 1962 [facility]-Zoster Vaccines (1 of 2) 1993 [facility]-Pneumococcal Vaccine: 50+ Years (2 of 2 - PPSV23) 06/05/2017 04/10/2017 [id number] Vaccine ( season) 2024 05/10/2024, 05/16/2023, 04/10/2022, Additional history exists [facility]-Influenza Vaccine (#1) 03/21/202504/28, 05/28/2023, 05/01/2022, Additional history exists [facility]-Depression Screening 10/15/2025 10/15/2024, 09/19 [facility]-RSV Vaccine: 60+ Years or Completed 06/22/2024 [...] patient's age to complete this topic Insurance MEDICARE AARP Care Teams Cellar Hand Relationship Specialty Start Date End Date Senthil Clinton MD [address] [place] [id number] PCP - General Internal Medicine 10/15/24
--- NOTE | 2025-01-19 11:27 | XR_ITS ---
PROCEDURE INFORMATION: Exam: XR Chest Exam date and time: 01/19/2025 11:40 AM Age: 79 years old Clinical indication: Shortness of breath; Additional info: Short of breath TECHNIQUE: Imaging protocol: Radiologic exam of the chest. Views: 1 view. COMPARISON: 1. CR XR CHEST PORTABLE 01/11/2025 2:[address] ANGIO CHEST PE PROTOCOL 01/10/2025 3:32 PM FINDINGS: Tubes, catheters and devices: Loop recorder over the left mid chest. Lungs: Opacification of the right hemithorax with mild aeration of the right upper lung. Left lung is clear. Pleural spaces: Large right pleural effusion, increased from prior. No pneumothorax. Heart/Mediastinum: Cardiomediastinal silhouette is normal. Status post CABG. Aortic calcifications. Bones/joints: No acute abnormality. Median sternotomy wires. IMPRESSION: Opacification of the right hemithorax with mild aeration of the right upper lung, compatible with large pleural effusion increased from chest radiograph 01/11/2025 and atelectasis. Underlying infection or lung lesion not excluded.
--- NOTE | 2025-01-19 11:32 | ECG_ITS ---
APPROVED REPORT Exam: Resting ECG HR:98 bpm ECG Measurements Heart Rate 98 AXES QRSd 103 QRS 61 QT 325 T -56 QTc 381 Conclusion ATRIAL FIBRILLATION WITH ABERRANT CONDUCTION OR VENTRICULAR PREMATURE COMPLEXES MODERATE T-WAVE ABNORMALITY, CONSIDER INFERIOR ISCHEMIA [-0.1+ mV T-WAVE IN II/aVF] ABNORMAL ECG Electronically signed by : JO ANN CHUNG, 01/21/2025 14:05:02
--- NOTE | 2025-01-19 11:32 | ED_ITS ---
<Statement entered by Delfino Lowe MD - 01/19/25 17:19> I was consulted by the KOJO, and we discussed the complexity of problems being addressed. I approved the treatment and management plan for this patient's care in the emergency department, thus performing a substantial portion of the medical decision making. Delfino Lowe MD Discharge Plan Disposition Chief Complaint: Weakness Prescriptions Prescriptions: No Action Jardiance 25 mg tablet 25 mg PO DAILY metoprolol succinate 50 mg tablet extended release 24 hr 50 mg PO DAILY atorvastatin 40 mg tablet 40 mg PO DAILY clopidogrel [Plavix] 75 mg tablet 75 mg PO DAILY Qty: 90 2RF Eliquis 5 mg tablet 5 mg PO BID Qty: 180 3RF Entresto 24-26 mg tablet 1 tab PO BID 90 Days Qty: 180 2RF potassium chloride [Klor-Con M20] 20 mEq tablet,ER particles/crystals 40 meq PO DAILY 30 Days Qty: 60 2RF furosemide 80 mg tablet 80 mg PO DAILY Qty: 30 2RF metformin 500 mg tablet 1,000 mg PO BID nitroglycerin 0.4 mg tablet, sublingual 0.4 mg SUBLINGUAL Q5MINP PRN (Reason: chest pain) Rx Instructions: take one tab sublingual for chest pain, may repeat every 5 minutes, max three tabs glimepiride 4 MG tablet 4 mg PO BID Referrals Follow up/Referrals: Malissa Kilgore APRN [Primary Care Provider, Medical] - See instructions Print Language Print Language: Ug[place] Discharge ED Provider: Delfino Lowe General Adult HPI General Chief complaint: Weakness Stated complaint: Sent by Julio C Time Seen by Provider: 01/19/25 11:17 Mode of Arrival: Wheelchair Source of Information: Patient and Relative Description of Symptoms (Recalled from ER Triage Doc. by RN): Patient presents to ED from Dr. Walker's office with c/o SOA on exertion and generalized weakness. Reports patient was hypotensive in office and was newly dx with Lung CA last week. History of Present Illness HPI narrative: 79-year-old male presents to the ED today from Dr. Walker's office with complaint of shortness of air, weakness for the last 3 to 4 days and low blood pressure. He has not been eating and drinking a lot but he has been eating and drinking. Patient was diagnosed with lung cancer last week and had a thoracentesis and patient into [place] was removed from his lung. Patient has history of chronic PEs, CHF and A-fib. He is on Eliquis. 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 01/11/25 01/19/25 tablet pain Previous Rx's ?Medication ?Instructions ?Recorded clopidogrel 75 mg tablet (Plavix) 75 mg PO DAILY #90 t abs 07/26/19 apixaban 5 mg tablet (Eliquis) 5 mg PO BID #180 tabs 0 10/18/24 sacubitril 24 mg-valsartan 26 mg 1 tab PO BID 90 days #180 tabs 11/22/24 tablet (Entresto) furosemide 80 mg tablet 80 mg PO DAILY #30 tabs 12/19 01/12 potassium chloride 20 mEq 40 meq (2 x 20 mEq) PO DAILY 30 01/03/25 tablet,extended days #60 tabs release(part/cryst) (Klor-Con M) Allergies Allergy/AdvReac Type Severity Reaction Status Date / Time gabapentin AdvReac Mild Dizziness Verified 01/19/25 10:18 [facility] Disclaimer: The information contained in this section may have been updated after the patient was seen, as this information can be updated by other users. Medical History Pulmonary embolism Lung nodule HFrEF (heart failure with reduced ejection fraction) Severe aortic stenosis Afib Pre-syncope Dizziness Surgical History S/P CABG x 3 Family History Other Family history of cancer Family history of myocardial infarction Social History Smoking Status: Never smoker second hand exposure: No alcohol intake: never substance use type: denies use current occupational status: retired Travel in the last 8 weeks?: Inside the [place] household members: spouse housing: house current occupational exposures/hazards: No caffeine: No Have you lived/traveled outside US in past 30 days?: No Contact w/someone who lives/traveled outside US past 30 days?: No Exposure to someone with infectious disease in past 14 days?: No Do you have a fever (greater than 100.4 F or 38 C)?: No Have you tested positive for COVID-19?: No Exposed to someone with COVID-19 in past 14 days?: No Do you have a sore throat?: No Do you have a cough?: No Do you have any weakness?: No Do you have any diarrhea?: No Are you experiencing any unusual bleeding?: No Do you have any muscle aches/pain?: No Do you have any abdominal pain?: No Are you experiencing loss of taste or smell?: No Other Medical History Have you received the Flu Vaccine for this season: No Have you received the Pneumonia Vaccine: No ROS Obtained: Yes Systems reviewed as appropriate & no additional complaints except as documented Constitutional Constitutional: Reports as per HPI Physical Exam General General appearance: alert and in distress (Fatigue, weak) Head Head exam: atraumatic and normocephalic Eye Eye exam: Present PERRL and EOMI ENT ENT exam: Present normal oropharynx and mucous membranes moist Neck Neck exam: Present full ROM and trachea midline Chest Chest inspection: Present normal inspection Respiratory Respiratory exam: Present other (Decreased on right) Cardiovascular Cardiovascular exam: Present normal rhythm, tachycardia, normal heart sounds, +S1 and +S2 Abdominal Exam Abdominal exam: Present soft and normal bowel sounds Extremities Exam Extremities exam: Present normal inspection, full ROM and normal capillary refill Neurological Exam Neurological exam: Present alert and oriented X3 Skin Skin exam: Present warm, dry and intact Medical Decision Making Medical Records Medical records reviewed: Yes I reviewed the patient's medical records. Screening: Per USPSTF and CDC recommendations, given the prevalence of disease in our region, it is our hospital?s policy to screen for HIV and viral Hepatitis for all patients aged 18 and over and those with ongoing risk factors. Jose Roberto Inquiry Pt receiving controlled substance: No Jose Roberto was queried for this patient: No Vital Signs: 01/19/25 11:19 01/19/25 11:33 01/19/25 11:45 Temperature 97.7 F Temperature Source Axillary Pulse Rate 96 H 111 H Pulse Rate [Left] 105 H Respiratory Rate 19 21 23 Blood Pressure 96/56 L 85/45 L Blood Pressure [Right Arm] 94/60 L Blood Pressure Mean Blood Pressure Mean [Right Arm] 71 Blood Pressure Source [Right Arm] Automatic Cuff Blood Pressure Position [Right Arm] Supine 02 Sat by Pulse Oximetry 97 99 99 Oxygen Delivery Method Room Air Room Air 01/19/25 12:02 01/19/25 12:15 01/19/25 12:30 Temperature Temperature Source Pulse Rate 103 H 109 H Pulse Rate [Left] Respiratory Rate 23 21 Blood Pressure 85/57 L 101/61 L 97/62 L Blood Pressure [Right Arm] Blood Pressure Mean 73 Blood Pressure Mean [Right Arm] Blood Pressure Source [Right Arm] Blood Pressure Position [Right Arm] 02 Sat by Pulse Oximetry 99 98 97 Oxygen Delivery Method Room Air Room Air 01/19/25 12:45 01/19/25 13:00 01/19/25 13:15 Temperature Temperature Source Pulse Rate 80 Pulse Rate [Left] 116 H Respiratory Rate 21 19 Blood Pressure 91/63 L 96/62 L Blood Pressure [Right Arm] 94/64 L Blood Pressure Mean 69 66 Blood Pressure Mean [Right Arm] 74 Blood Pressure Source [Right Arm] Automatic Cuff Blood Pressure Position [Right Arm] Supine 02 Sat by Pulse Oximetry 97 95 97 Oxygen Delivery Method Room Air Room Air 01/19/25 13:15 Temperature Temperature Source Pulse Rate 117 H Pulse Rate [Left] Respiratory Rate 20 Blood Pressure 94/64 L Blood Pressure [Right Arm] Blood Pressure Mean 71 Blood Pressure Mean [Right Arm] Blood Pressure Source [Right Arm] Blood Pressure Position [Right Arm] 02 Sat by Pulse Oximetry 97 Oxygen Delivery Method Lab Data Lab Results 01/19/25 11:37: WBC 12.6 H, RBC 5.12, Hgb 15.9, Hct 46.9, MCV 91.6, MCH 31.1, MCHC 33.9, RDW 15.5, Plt Count 418, MPV 9.8, Neut % (Auto) 64.3, Lymph % (Auto) 25.4, [place] % (Auto) 7.9, Eos % (Auto) 1.4, Baso % (Auto) 0.4, Neut # (Auto) 8.1 H, Lymph # (Auto) 3.2, [place] # (Auto) 1.0, Eos # (Auto) 0.2, Baso # (Auto) 0.1, S odium 130 L, Potassium 4.9, Chloride 96 L, Carbon Dioxide 19 L, Anion Gap 19.9 H , BUN 27 H, Creatinine 1.30 H, Estimated Creat Clear 49, Estimated GFR 53 L, Est GFR ( Amer) 64, Glucose 257 H, Calcium 9.5, Magnesium 2.0, Total Bilirubin 1.2, AST 27, ALT 21, Alkaline Phosphatase 81, Total Protein 7.1, Albumin 4.0, Globulin 3.1, Albumin/Globulin Ratio 1.3, Lipase 107 01/19/25 11:37 01/19/25 11:37 Orders (Tests/Meds): ED MEDICATIONS Generic Name Dose Route Start Last Admin Trade Name Freq PRN Reason Stop Dose Admin Acetaminophen 650 mg 01/19/25 12:56 Acetaminophen 325mg Tab PO 02/18/25 12:55 Q4HP PRN Fever or Mild Pain (1-3) Hydrocodone Bitart/Acetaminophen 1 tab 01/19/25 12:56 Hydrocodone/Apap 5/325 Mg Tablet PO 02/18/25 12:55 Q4HP PRN Mild to Moderate Pain (1-6) Ceftriaxone Sodium 2 gm/ 100 mls @ 200 mls/hr 01/19/25 13:00 Sodium Chloride IV 01/29/25 12:59 Q24H JOSTIN Lactated Ringer's 1,000 mls @ 150 mls/hr 01/19/25 13:00 01/19/25 13:20 Lactated Ringer's 1000 Ml Bag IV 01/19/25 16:59 150 mls/hr .Q6H40M JOSTIN Administration Ondansetron HCl 4 mg 01/19/25 12:56 Ondansetron 4mg/2ml Vial IV 02/18/25 12:55 Q8HP PRN Nausea Discontinued Medications Generic Name Dose Route Start Last Admin Trade Name Freq PRN Reason Stop Dose Admin Sodium Chloride 1,000 mls @ 999 mls/hr 01/19/25 11:27 01/19/25 11:42 Sod Chlor 0.9% 1000ml Bag IV 01/19/25 12:27 999 mls/hr .Q1H1M ONE Administration ORDERS Category Date Time Status Consult to Hospice [CONS] Routine Cons 01/19/25 12:59 Active Pulmonology Consult [Consult to Pulmonology] [CONS] Cons 01/19/25 12:56 Active Routine Chest XR -- portable [XR chest portable] Stat Exams 01/19/25 11:27 Completed CBC [Complete Blood Count Auto Diff] Stat Lab 01/19/25 11:37 Completed Complete Blood Count Auto Diff AMLAB Lab 01/20/25 06:00 Ordered Comprehensive Metabolic Panel AMLAB Lab 01/20/25 06:00 Ordered Comprehensive Metabolic Panel Stat Lab 01/19/25 11:37 Completed Lactic Acid Stat Lab 01/19/25 12:55 Ordered Lipase Stat Lab 01/19/25 11:37 Completed Magnesium AMLAB Lab 01/20/25 06:00 Ordered Magnesium Stat Lab 01/19/25 11:37 Completed Blood Culture Stat Micro 01/19/25 12:55 Ordered Medical Decision Narrative: patient is a 79-year-old male presenting to the emergency department for evaluation of shortness of breath and hypotension with weakness for the last 3 to 4 days. He was sent from Dr. Butler's office for low blood pressure. Patient is hypotensive at 94/60 upon arrival, afebrile. Differential diagnosis includes weakness, hypotension, sepsis among others. Workup will be conducted with hematologic labs, specific imaging. Initial inventions include crystalloid bolus, antibiotics for prophylaxis. Initial workup reviewed by me hematologic labs are remarkable for evaded white count at 12.6, BUN 27 creatinine 1.3. Patient is also slightly only hyponatremic with a sodium of 130. Imaging informally interpreted by me and remarkable for large pleural effusion. I went ahead and contacted Dr. Hoover regarding this as soon as I saw this. He does admit that he needs another thoracentesis. I also discussed case initially with Dr. Butler who has seen the patient this morning in office. He sent him here wanting to get another x-ray and some basic labs as patient was diagnosed with lung cancer last week and was hypotensive in his office this morning. He did discuss hospice with him as he says this is incurable cancer and patient and family are understandable and are working towards home with hospice. Dr. Butler did talk to Dr. Bunch about this patient. Formal imaging read remarkable for large pleural effusion, see official radiology read for full report. Discussed with Neelam who also discussed with Julio C. I talked to Julio C and he wanted me to add on a lactic and Rocephin which I did. Patient will be admitted. Critical Care Critical Care Time Critical Care Time: No
[2025-01-19] MEDS: 0.9 % SODIUM CHLORIDE 1000ML 1,000 ML 999 ML IV (11:42)
--- NOTE | 2025-01-19 11:44 | HMH.PHAINT1 ---
Pharmacy Intervention Comments: MEDICATION RECONCILIATION COMPLETED ON PATIENT USING EXTERNAL FILL HISTORY FROM PHARMACY AND DISCHARGE SUMMARY FROM PREVIOUS ADMISSION. -LIZY SINHA, MARIA DEL ROSARIOD
[2025-01-19 11:47] LABS: Hematocrit 46.9 % (42.0-52.0); Hemoglobin 15.9 g/dL (14.1-18.0); Immature Granulocytes % 0.6 %; Mean Corpuscular HGB Conc 33.9 g/dL (31.8-35.4); Mean Corpuscular Hemoglobin 31.1 pg (27.0-31.2); Mean Corpuscular Volume 91.6 fl (80-94); Nucleated Red Blood Cells % 0 %; Platelet Count 418 K/mm3 (142-424); Red Blood Count 5.12 M/mm3 (4.60-6.20); Red Cell Distribution Width-SD 51.9 fL; White Blood Count 12.6 K/mm3 (4.8-10.8)
[2025-01-19 11:59] LABS: Albumin Level 4.0 g/dl (3.5-5.0); Bilirubin,Total 1.2 mg/dl (0.2-1.3); Blood Urea Nitrogen 27 mg/dl (9-20); Calcium 9.5 mg/dl (8.4-10.2); Carbon Dioxide 19 mmol/L (22.0-30.0); Creatinine Clearance Estimated 49 mL/min (50-200); Creatinine,Serum 1.30 mg/dl (0.66-1.25); Estimated Glomerular Filt Rate 53 ml/min (>60); GFR (African American) 64 ML/MIN (>60); Magnesium 2.0 mg/dl (1.6-2.3)
[2025-01-19 12:20] LABS: Alanine Aminotransferase 21 U/L (12-78); Albumin/Globulin Ratio 1.3 (1.1-1.8); Alkaline Phosphatase 81 U/L (38-126); Anion Gap 19.9 mEq/L (5-15); Aspartate Amino Transferase 27 U/L (17-59); Chloride 96 mmol/L (98-107); Globulin 3.1 g/dL (1.3-3.2); Glucose 257 mg/dl (74-100); Lipase 107 U/L (23-300); Potassium 4.9 mmoL/L (3.5-5.1); Sodium 130 mmol/L (136-145); Total Protein,Serum 7.1 g/dl (6.3-8.2)
[2025-01-19] MEDS: LACTATED RINGERS 1000ML 1,000 ML 150 ML IV (13:20)
--- NOTE | 2025-01-19 13:38 | PC.NURSE ---
Lab called to obtain blood cultures due to multiple techs being unable to obtain. Jolene with lab states she will be here soon.
--- NOTE | 2025-01-19 13:54 | PC.NURSE ---
Radio Division Officer at bedside to obtain Blood Cultures.
--- NOTE | 2025-01-19 14:20 | P.HP_ITS ---
<Statement entered by Eusebio Bunch MD - 01/19/25 21:01> Rounded on patient after nurse practitioner. Personally examined and interviewed patient. Agree with exam findings and care plan as documented. [facility] Disclaimer: The information contained in this section may have been updated after the patient was seen, as this information can be updated by other users. Medical History Pulmonary embolism Lung nodule HFrEF (heart failure with reduced ejection fraction) Severe aortic stenosis Afib Pre-syncope Dizziness Surgical History S/P CABG x 3 Family History Other Family history of cancer Family history of myocardial infarction Social History Smoking Status: Never smoker second hand exposure: No alcohol intake: never substance use type: denies use current occupational status: retired Travel in the last 8 weeks?: [place] the [place] household members: spouse housing: house current occupational exposures/hazards: No caffeine: No Have you lived/traveled outside US in past 30 days?: No Contact w/someone who lives/traveled outside US past 30 days?: No Exposure to someone with infectious disease in past 14 days?: No Do you have a fever (greater than 100.4 F or 38 C)?: No Have you tested positive for COVID-19?: No Exposed to someone with COVID-19 in past 14 days?: No Do you have a sore throat?: No Do you have a cough?: No Do you have any weakness?: No Do you have any diarrhea?: No Are you experiencing any unusual bleeding?: No Do you have any muscle aches/pain?: No Do you have any abdominal pain?: No Are you experiencing loss of taste or smell?: No Other Medical History Have you received the Flu Vaccine for this season: No Have you received the Pneumonia Vaccine: No Review of Systems Constitutional Constitutional: Reports anorexia, Reports body ache(s), Reports fatigue, Reports poor appetite, Reports lethargy and Reports weakness Eyes Eyes: Denies eye discharge, Denies dry eyes, Denies irritation and Denies itchy eyes ENT Ears, Nose, Mouth, and Throat: Denies epistaxis, Denies facial pain, Denies lip swelling and Denies throat swelling *Cardiovascular Cardiovascular: Reports dyspnea and Reports dyspnea on exertion *Respiratory Respiratory: Denies change in phlegm color, Reports chest congestion, Reports cough, Reports dyspnea, Reports dyspnea on exertion, Denies excessive phlegm production, Denies hemoptysis, Denies pain on inspiration, Denies pain with cough and Denies wheezing *Gastrointestinal Gastrointestinal: Denies abdominal pain, Denies belching and Denies cramping *Musculoskeletal Musculoskeletal: Reports back pain, Reports myalgias and Reports other (No small joint swelling or Pain) *Neurologic Neurologic: Reports weakness Psychiatric Psychiatric: Denies homicidal ideation and Denies suicidal ideation Endocrine Endocrine: Reports fatigue and Denies heat intolerance Hematologic/Lymphatic Hematologic/Lymphatic: Denies easy bleeding and Denies lymphadenopathy Allergic/Immunologic Allergic/Immunologic: Denies itchy eyes, Denies lip swelling, Denies throat swelling and Denies wheezing Meds Home Medications and Allergies Home Medications ?Medication ?Instructions ?Recorded ?Confirmed ?Type glimepiride 4 mg tablet 4 mg PO BID 03/31/18 5 History clopidogrel 75 mg tablet (Plavix) 75 mg PO DAILY #90 t abs 07/26/19 01/19/25 Rx empagliflozin 25 mg tablet 25 mg PO DAILY 09/21/2409/14 History (Jardiance) apixaban 5 mg tablet (Eliquis) 5 mg PO BID #180 tabs 0 10/18/24 01/19/25 Rx atorvastatin 40 mg tablet 40 mg PO DAILY 10/26/2409/14 History metoprolol succinate 50 mg 50 mg PO DAILY 10/26/2409/14 History tablet,extended release 24 hr sacubitril 24 mg-valsartan 26 mg 1 tab PO BID 90 days #180 tabs 11/22/24 01/19/25 Rx tablet (Entresto) furosemide 80 mg tablet 80 mg PO DAILY #30 tabs 12/1901/19/25 Rx potassium chloride 20 mEq 40 meq (2 x 20 mEq) PO DAILY 30 01/03/25 01/19/25 Rx tablet,extended days #60 tabs release(part/cryst) (Klor-Con M) metformin 500 mg tablet 1,000 mg PO BID 01/11/2509/14 History nitroglycerin 0.4 mg sublingual 0.4 mg sublingual 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 01/11/25 01/19/25 History tablet pain New Prescriptions to Start Prescriptions: Allergies Allergy/AdvReac Type Severity Reaction Status Date / Time gabapentin AdvReac Mild Dizziness Verified 01/19/25 10:18 Exam Data for Last 24 hours Vital signs and Labs for Last 24 Hours: Temp Pulse Resp BP Pulse Ox O2 Del Method 97.7 F 117 H 20 102/74 L 94 L Room Air 01/19/25 11:19 01/19/25 13:45 01/19/25 13:45 01/19/25 13:45 01/19/25 13:45 01/19/25 13:45 Laboratory Results - last 24 hr 01/19/25 11:37: WBC 12.6 H, RBC 5.12, Hgb 15.9, Hct 46.9, MCV 91.6, MCH 31.1, MCHC 33.9, RDW 15.5, Plt Count 418, MPV 9.8, Neut % (Auto) 64.3, Lymph % (Auto) 25.4, [place] % (Auto) 7.9, Eos % (Auto) 1.4, Baso % (Auto) 0.4, Neut # (Auto) 8.1 H, Lymph # (Auto) 3.2, [place] # (Auto) 1.0, Eos # (Auto) 0.2, Baso # (Auto) 0.1, Sodium 130 L, Potassium 4.9, Chloride 96 L, Carbon Dioxide 19 L, Anion Gap 19.9 H, BUN 27 H, Creatinine 1.30 H, Estimated Creat Clear 49, Estimated GFR 53 L, Est GFR ( Amer) 64, Glucose 257 H, Calcium 9.5, Magnesium 2.0, Total Bilirubin 1.2, AST 27, ALT 21, Alkaline Phosphatase 81, Total Protein 7.1, Albumin 4.0, Globulin 3.1, Albumin/Globulin Ratio 1.3, Lipase 107 I & O for Last 24 hours: Intake & Output 01/16/25 01/17/25 01/18/25 01/19/25 23:59 23:59 23:59 23:59 Weight 77.111 kg Constitutional Constitutional: no acute distress *Routine HEENT Exam Head: Present normocephalic Eye: Present EOMI and PERRL ENT: Present mucous membranes moist *Routine Neck Exam Neck: Present supple; Absent lymphadenopathy *Routine Respiratory Exam Respiratory: Absent CTA bilaterally Comments: Diminished air movement right lung. *Routine Cardiovascular Exam Cardiovascular: Present RRR *Routine Abdominal Exam Abdominal: Present soft and normoactive bowel sounds; Absent tenderness *Routine Rectal Exam Rectal:: deferred *Routine Genitalia Exam Genitalia:: deferred *Routine Extremities Exam Extremities: Absent cyanosis, clubbing or edema *Routine Skin Exam Skin: Present warm; Absent rash *Routine Neurological Exam Neurological: Present alert and oriented X3 Assessment and Plan *Assessment and plan (1) Failure to thrive: Status: Acute Category: Medical (2) Pleural effusion: Status: Acute Category: Medical Code(s): J90 - Pleural effusion, not elsewhere classified (3) Cancer of right lung: Status: Acute Category: Medical Code(s): C34.91 - Malignant neoplasm of unspecified part of right bronchus or lung (4) HFrEF (heart failure with reduced ejection fraction): Status: Acute Category: Medical Code(s): I50.20 - Unspecified systolic (congestive) heart failure (5) S/P CABG x 3: Status: Acute Category: Surgical Code(s): Z95.1 - Presence of aortocoronary bypass graft (6) Severe aortic stenosis: Status: Acute Category: Medical Code(s): I35.0 - Nonrheumatic aortic (valve) stenosis (7) Diabetes mellitus: Status: Acute Qualifiers: Diabetes mellitus complication detail: with other circulatory complications Diabetes mellitus complication status: with circulatory complication 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: without longterm use Diabetes mellitus type: type 2 Qualified Code(s): E11.59 - Type 2 diabetes mellitus with other circulatory complications Category: Medical Code(s): E11.9 - Type 2 diabetes mellitus without complications (8) Hypertension: Status: Acute Qualifiers: Hypertension type: essential hypertension Qualified Code(s): I10 - Essential (primary) hypertension Category: Medical Code(s): I10 - Essential (primary) hypertension (9) Afib: Status: Acute Qualifiers: Atrial fibrillation type: unspecified Qualified Code(s): I48.91 - Unspecified atrial fibrillation Category: Medical Code(s): I48.91 - Unspecified atrial fibrillation Plan Carlos Bradshaw is an 79-year-old male with a complex cardiac history including CABG, STEMI, A-fib, HFrEF as well as type 2 diabetes, GERD who presents to the ED with progressive weakness and low appetite and intermittent shortness of breath. Mr. Bradshaw was at his appointment with Dr. Walker, oncology, to discuss recent diagnosis and increased fatigue. Dr. Walker recommended ER evaluation due to hypotension noted in the office, presyncopal episode, and severe fatigue. He was recently admitted to the hospital for a similar episode, and found to have a right-sided pleural effusion that required thoracentesis and drain placement. 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 He was hospitalized for multiple days and discharged home with outpatient oncology follow-up. Patient is a former smoker 40 years ago, no personal or known family history of cancer. Workup in the ED significant for chest x-ray showing recurrent massive right pleural effusion, right lung collapse; this was previously noted and treated at prior admission. On my evaluation of patient, he was lying in bed comfortably without acute distress. On room air oxygen saturation 94%. Patient is tachycardic in the 120s. I personally reviewed the EKG showing atrial fibrillation. Patient was also noted to be hypotensive 80s/40s, blood pressure seems to have stabilized and now is normotensive 100/60. Discussed care with the ER provider and I agreed to admit the patient for furt her workup and monitoring. Plan of care as follows: #Massive right pleural effusion #Confirmed malignancy #Former smoker #SIRS ? Patient has had 20 pound weight loss over the past 3 to 4 months, poor appetite, and significant fatigue over the past week with shortness of breath today. Stable on room air. ? Chest x-ray showing massive right pleural effusion, right lung collapse-this was previously noted on his prior admission on 01/10. ? Pulmonology consulted: Plans to repeat thoracentesis, chest tube placement. Patient agreeable ? Ordered one-time dose of IV therapeutic Lovenox, will restart anticoagulation after thoracentesis tomorrow. ? Patient meets SIRS criteria due to tachycardia, hypotension, leukocytosis. Patient remains afebrile, 1 L bolus given in the ED, Rocephin 2 g given IV, blood cultures pending. ?CBC, CMP ordered for the a.m. Patient placed in stepdown status for continuous monitoring. #History of CABG, STEMI #A-fib #HFrEF #Severe aortic stenosis ? Currently stable. Hold home Plavix, anticoagulation pending thoracentesis tomorrow. ? Continue home metoprolol succinate 50 mg, hold Entresto in the setting of hypotension. #Type 2 diabetes ? Hemoglobin A1c 7.8%. ? LDSSI, ACHS glucose checks. Continue home metformin, Jardiance. #GERD ? Continue home PPI. #Dementia ? Patient at this time seems alert and oriented, endorses memory loss. Continue supportive therapy. Discussion was had with family today about treatment versus palliative hospice care. No decision was made but will continue conversation with family during admission. Full code DVT prophylaxis: Patient took Plavix/Eliquis this morning. Will reevaluate DVT prophylaxis tomorrow after thoracentesis.
--- NOTE | 2025-01-19 14:46 | PC.NURSE ---
Patient report called to MATIAS Corbett.
--- NOTE | 2025-01-19 14:50 | PC.NURSE ---
Patient arrived to ICU at this time. Continuation of care plan.
--- NOTE | 2025-01-19 16:10 | EXP.PHA.CONS ---
Pharmacy Consult Date: 01/19/25 Time: 16:10 Referring provider: DR. CARBALLO Reason for Consult:: VANCOMYCIN DOSING Allergies Allergy/AdvReac Type Severity Reaction Status Date / Time gabapentin AdvReac Mild Dizziness Verified 01/19/25 10:18 Home Medications ?Medication ?Instructions ?Recorded ?Confirmed ?Type glimepiride 4 mg tablet 4 mg PO BID 03/31/18 01/19/25 History clopidogrel 75 mg tablet (Plavix) 75 mg PO DAILY #90 tabs 07/26/19 01/19/25 Rx empagliflozin 25 mg tablet 25 mg PO DAILY 09/21/24 01/19/25 History (Jardiance) apixaban 5 mg tablet (Eliquis) 5 mg PO BID #180 tabs 10/18/24 01/19/25 Rx atorvastatin 40 mg tablet 40 mg PO DAILY 10/26/24 01/19/25 History metoprolol succinate 50 mg 50 mg PO DAILY 10/26/24 01/19/25 History tablet,extended release 24 hr sacubitril 24 mg-valsartan 26 mg 1 tab PO BID 90 days #180 tabs 11/22/24 01/19/25 Rx tablet (Entresto) furosemide 80 mg tablet 80 mg PO DAILY #30 tabs 01/03/25 01/19/25 Rx potassium chloride 20 mEq 40 meq (2 x 20 mEq) PO DAILY 30 01/03/25 01/19/25 Rx tablet,extended days #60 tabs release(part/cryst) (Klor-Con M) metformin 500 mg tablet 1,000 mg PO BID 01/11/25 01/19/25 History nitroglycerin 0.4 mg sublingual 0.4 mg sublingual Q5MINP PRN chest 01/11/25 01/19/25 History tablet pain New Prescriptions to Start Prescriptions: Height: 1.78 m Weight: 77.111 kg Laboratory Results:: Laboratory Results - last 24 hr 01/19/25 11:37: WBC 12.6 H, RBC 5.12, Hgb 15.9, Hct 46.9, MCV 91.6, MCH 31.1, MCHC 33.9, RDW 15.5, Plt Count 418, MPV 9.8, Neut % (Auto) 64.3, Lymph % (Auto) 25.4, [place] % (Auto) 7.9, Eos % (Auto) 1.4, Baso % (Auto) 0.4, Neut # (Auto) 8.1 H, Lymph # (Auto) 3.2, [place] # (Auto) 1.0, Eos # (Auto) 0.2, Baso # (Auto) 0.1, Sodium 130 L, Potassium 4.9, Chloride 96 L, Carbon Dioxide 19 L, Anion Gap 19.9 H, BUN 27 H, Creatinine 1.30 H, Estimated Creat Clear 49, Estimated GFR 53 L, Est GFR ( Amer) 64, Glucose 257 H, Calcium 9.5, Magnesium 2.0, Total Bilirubin 1.2, AST 27, ALT 21, Alkaline Phosphatase 81, Total Protein 7.1, Albumin 4.0, Globulin 3.1, Albumin/Globulin Ratio 1.3, Lipase 107 Medical History: Medical History (Updated 01/19/25 @ 15:59 by Chelle Hopkins RN) Dementia FH: total knee replacement Pulmonary embolism Lung nodule HFrEF (heart failure with reduced ejection fraction) Severe aortic stenosis Afib Pre-syncope Dizziness Assessment and Plan Assessment and plan all Dx Assessment and Plan for all problems:: Pharmacokinetic dosing service Objective: Patient: Floor: Age: 79 yo Serum creatinine: 1.30 mg/dL Height: 70.1 Inches Weight (kg): 77.1 Assessment: IBW (kg): 73.23 Dosing wt(kg): 77.1 Estimated Creatinine clearance (ml/min): 46.2 CRCL method: Cockcroft and Gault using ibw(default). Drug selected: Vancomycin Loading dose (mg): Vd (liters): 61.7 (factor used: 0.8 L/kg) [place] (hr-1): 0.043 Half life (hrs): 16.12 CLvanco=?? 2.653 L/hr Recommended dose: 1500 mg Interval: 24 hrs Infusion time (hrs): 2.0 Predicted peak (mcg/mL): 36.2 Predicted trough (mcg/mL): 14.06 Total body weight is being used for vancomycin dosing. Recommendations: Give Vancomycin 1500 mg q 24 hrs with an expected Cpeak of 36.2 mcg/ml and an expected Ctrough of 14.06 mcg/ml AUC 0-24 /EZRA Data: EZRA 0.5 mcg/mL:?? AUC/EZRA:? 1130.8 EZRA 1.0 mcg/mL:?? AUC/EZRA:? 565.4 --------- EZRA 1.5 mcg/mL:?? AUC/EZRA:? 376.9 EZRA 2.0 mcg/mL:?? AUC/EZRA:? 282.7 Thank you for the consult, will continue to follow. -LIZY SINHA, MARIA DEL ROSARIOD
--- NOTE | 2025-01-19 16:35 | PC.NURSE ---
Report given to MATIAS Corbett on Medical Surgical Floor.
[2025-01-19 16:43] LABS: POC Glucose,Bedside 122 (70-110)
--- NOTE | 2025-01-19 17:00 | PC.NURSE ---
Patient transported to Medical Surgical room 210 by charge rn at this time.
--- NOTE | 2025-01-19 17:02 | PC.NURSE ---
arrived by w/c from ICU
[2025-01-19] MEDS: VANCOMYCIN/WATER FOR INJ (PEG) 1.5 GM/300 ML PIGGYBACK IV (17:22)
[2025-01-19] MEDS: METFORMIN 500MG TABLET 1000 MG PO (17:23)
[2025-01-19] MEDS: ATORVASTATIN 40MG TABLET 40 MG PO (20:26)
[2025-01-19 21:10] LABS: POC Glucose,Bedside 88 (70-110)
--- NOTE | 2025-01-19 22:11 | PC.NURSE ---
Patient dumped urine before it could be measured
[2025-01-20] VITALS: BP 115/61; PULSE 107; PULSE 110; RESP 16; TEMP 36.8; O2SAT 94
--- NOTE | 2025-01-20 00:27 | PC.NURSE ---
patient has done well. no complaints of pain. did tolerate a couple bowls of chicken noodle soup, crackers and sprite. now npo. at bedside. did walk with assistance to use bathroom. encouraged to ring out as needed
[2025-01-20 04:00] VITALS: BP 110/64; PULSE 100; PULSE 109; RESP 16; TEMP 36.7; O2SAT 94; BMI 26.8
[2025-01-20 05:57] LABS: POC Glucose,Bedside 54 (70-110)
--- NOTE | 2025-01-20 06:12 | PC.NURSE ---
Notified provider about pt blood sugar of 54 and pt being NPO. He states he is alright if pt has some juice.
[2025-01-20 06:35] LABS: Hematocrit 41.0 % (42.0-52.0); Immature Granulocytes % 0.4 %; Mean Corpuscular HGB Conc 32.7 g/dL (31.8-35.4); Mean Corpuscular Hemoglobin 29.8 pg (27.0-31.2); Mean Corpuscular Volume 91.1 fl (80-94); Nucleated Red Blood Cells % 0 %; Platelet Count 344 K/mm3 (142-424); Red Blood Count 4.50 M/mm3 (4.60-6.20); Red Cell Distribution Width-SD 53.0 fL; White Blood Count 9.0 K/mm3 (4.8-10.8)
--- NOTE | 2025-01-20 06:49 | PC.NURSE ---
[facility] TAKING OUT OF ROOM,PATIENT IS NPO.
[2025-01-20 07:00] LABS: Alanine Aminotransferase 13 U/L (12-78); Albumin Level 3.1 g/dl (3.5-5.0); Albumin/Globulin Ratio 1.1 (1.1-1.8); Alkaline Phosphatase 59 U/L (38-126); Anion Gap 12.1 mEq/L (5-15); Aspartate Amino Transferase 20 U/L (17-59); Bilirubin,Total 0.8 mg/dl (0.2-1.3); Blood Urea Nitrogen 25 mg/dl (9-20); Calcium 8.7 mg/dl (8.4-10.2); Carbon Dioxide 23 mmol/L (22.0-30.0); Chloride 101 mmol/L (98-107); Creatinine Clearance Estimated 70 mL/min (50-200); Creatinine,Serum 1.00 mg/dl (0.66-1.25); Estimated Glomerular Filt Rate 72 ml/min (>60); GFR (African American) 87 ML/MIN (>60); Globulin 2.7 g/dL (1.3-3.2); Magnesium 1.9 mg/dl (1.6-2.3); Potassium 4.1 mmoL/L (3.5-5.1); Sodium 132 mmol/L (136-145); Total Protein,Serum 5.8 g/dl (6.3-8.2)
[2025-01-20 07:15] LABS: Glucose 48 mg/dl (74-100)
[2025-01-20 07:58] LABS: Hemoglobin 13.4 g/dL (14.1-18.0)
[2025-01-20 08:00] VITALS: BP 121/66; PULSE 117; PULSE 16; RESP 16; TEMP 36.6; O2SAT 95
--- NOTE | 2025-01-20 09:11 | US_ITS ---
FINAL REPORT CLINICAL HISTORY: rt Pleural effusion -- rt thoracentesis -- Dr. shruthi valencia -- 3360ml FINDINGS: ULTRASOUND-GUIDED THORACENTESIS HISTORY: Pleural effusion. ATTENDING PHYSICIAN: Dr. Rivas PHYSICIAN FIRST ASSISTANT: Javier Navarro PA-C TECHNIQUE:. Ultrasound was provided for the residential leasing manager in performance of a thoracentesis. IMPRESSION: Technically successful sonographic guided thoracentesis as above. Reviewed, Interpreted and Dictated by Galileo Rivas MD Transcribed by YG Araiza Authenticated and [facility]
--- NOTE | 2025-01-20 09:12 | EXP.PULM.CON ---
History of Present Illness History of present illness: Mr. Bradshaw is a 79-year-old male last known greater than 15 years ago recently seen in the hospital for right-sided lung mass and pleural effusion status post thoracentesis pulmonary adenocarcinoma discharged home on room air presented complaining of worsening generalized weakness fatigue and decreased appetite. Chest x-ray upon admission showed reaccumulation of pleural fluid. He denies any worsening respiratory distress [facility] Disclaimer: The information contained in this section may have been updated after the patient was seen, as this information can be updated by other users. Medical History (Updated 01/20/25 @ 13:36 by Melissa Hdz APRN) Dementia FH: total knee replacement Pulmonary embolism Lung nodule HFrEF (heart failure with reduced ejection fraction) Severe aortic stenosis Afib Pre-syncope Dizziness Surgical History Hx of heart artery stent History of hip replacement S/P CABG x 3 Family History Other Family history of cancer Family history of myocardial infarction Social History (Updated 01/19/25 @ 15:36 by Chelle Hopkins RN) Smoking Status: Never smoker second hand exposure: No alcohol intake: never substance use type: denies use current occupational status: retired Travel in the last 8 weeks?: Inside the [place] household members: spouse housing: house current occupational exposures/hazards: No caffeine: No Have you lived/traveled outside [place] in past 30 days?: No Contact w/someone who lives/traveled outside US past 30 days?: No Exposure to someone with infectious disease in past 14 days?: No Do you have a fever (greater than 100.4 F or 38 C)?: No Have you tested positive for COVID-19?: No Exposed to someone with COVID-19 in past 14 days?: No Do you have a sore throat?: No Do you have a cough?: No Do you have any weakness?: No Do you have any diarrhea?: No Are you experiencing any unusual bleeding?: No Do you have any muscle aches/pain?: No Do you have any abdominal pain?: No Are you experiencing loss of taste or smell?: No Review of Systems Constitutional Constitutional: Reports fatigue and Reports weakness Eyes Eyes: Denies eye discharge, Denies dry eyes, Denies irritation and Denies itchy eyes ENT Ears, Nose, Mouth, and Throat: Denies epistaxis, Denies facial pain, Denies lip swelling and Denies throat swelling *Cardiovascular Cardiovascular: Reports dyspnea on exertion *Respiratory Respiratory: Denies change in phlegm color, Reports chest congestion, Reports cough, Reports dyspnea on exertion, Denies excessive phlegm production, Denies hemoptysis, Denies pain on inspiration, Denies pain with cough and Denies wheezing *Gastrointestinal Gastrointestinal: Denies abdominal pain, Denies belching and Denies cramping *Musculoskeletal Musculoskeletal: Reports back pain, Reports myalgias and Reports other (No small joint swelling or Pain) *Neurologic Neurologic: Reports weakness Psychiatric Psychiatric: Denies homicidal ideation and Denies suicidal ideation Endocrine Endocrine: Reports fatigue and Denies heat intolerance Hematologic/Lymphatic Hematologic/Lymphatic: Denies easy bleeding and Denies lymphadenopathy Allergic/Immunologic Allergic/Immunologic: Denies itchy eyes, Denies lip swelling, Denies throat swelling and Denies wheezing Pulmonology Exam Inpatient Vital signs and Labs for Last 24 Hours: Temp Pulse Resp BP Pulse Ox O2 Del Method 98.1 F 109 H 16 110/64 94 L Room Air 01/20/25 04:00 01/20/25 04:00 01/20/25 04:00 01/20/25 04:00 01/20/25 04:00 01/20/25 06:36 Laboratory Results - last 24 hr 01/19/25 11:37: WBC 12.6 H, RBC 5.12, Hgb 15.9, Hct 46.9, MCV 91.6, MCH 31.1, MCHC 33.9, RDW 15.5, Plt Count 418, MPV 9.8, Neut % (Auto) 64.3, Lymph % (Auto) 25.4, [place]th[place]omew % (Auto) 7.9, Eos % (Auto) 1.4, Baso % (Auto) 0.4, Neut # (Auto) 8.1 H, Lymph # (Auto) 3.2, [place]th[place]w # (Auto) 1.0, Eos # (Auto) 0.2, Baso # (Auto) 0.1, Sodium 130 L, Potassium 4.9, Chloride 96 L, Carbon Dioxide 19 L, Anion Gap 19.9 H, BUN 27 H, Creatinine 1.30 H, Estimated Creat Clear 49, Estimated GFR 53 L, Est GFR ( Amer) 64, Glucose 257 H, Calcium 9.5, Magnesium 2.0, Total Bilirubin 1.2, AST 27, ALT 21, Alkaline Phosphatase 81, Total Protein 7.1, Albumin 4.0, Globulin 3.1, Albumin/Globulin Ratio 1.3, Lipase 107 01/19/25 16:31: POC Glucose 122 H 01/19/25 20:07: Lactate 1.8 01/19/25 20:25: POC Glucose 88 01/20/25 05:40: POC Glucose 54 L 01/20/25 05:41: WBC 9.0 D, RBC 4.50 L, Hgb 13.4 L D, Hct 41.0 L, MCV 91.1, MCH 29.8, MCHC 32.7, RDW 15.8, Plt Count 344, MPV 10.1, Neut % (Auto) 62.7, Lymph % (Auto) 21.2, [place]th[place]omew % (Auto) 12.6 H, Eos % (Auto) 2.7, Baso % (Auto) 0.4, Neut # (Auto) 5.6, Lymph # (Auto) 1.9, [place]th[place]w # (Auto) 1.1 H, Eos # (Auto) 0.2, Baso # (Auto) 0.0, Sodium 132 L, Potassium 4.1, Chloride 101, Carbon Dioxide 23, Anion Gap 12.1, BUN 25 H, Creatinine 1.00 D, Estimated Creat Clear 70, Estimated GFR 72, Est GFR ( Amer) 87 D, Glucose 48 L* D, Calcium 8.7, Magnesium 1.9, Total Bilirubin 0.8, AST 20 D, ALT 13 D, Alkaline Phosphatase 59, Total Protein 5.8 L, Albumin 3.1 L D, Globulin 2.7, Albumin/Globulin Ratio 1.1 I & O for Labs for Last 24 Hours: Intake & Output 01/17/25 01/18/25 01/19/25 01/20/25 23:59 23:59 23:59 23:59 Output Total 0 / 0 0 / 0 Balance 0 / 0 0 / 0 Weight 170 lb 187 lb 7 oz Constitutional: Present mild distress Head: Present normocephalic and atraumatic ENT: Present normal exam, normal oropharynx and mucous membranes moist Neck: Present normal inspection and full ROM Respiratory: Present respiratory distress, distant breath sounds, diminished air movement and able to speak in complete sentences; Absent wheezes or crackles Cardiac: Present S1/S2, Tachycardia and radial pulses present GI: Present soft and distention; Absent tenderness or guarding Skin: Present intact; Absent cyanosis or jaundice Neuro: Present alert, awake and oriented x 3 Extremities: Present normal inspection; Absent clubbing or cyanosis Psychiatric: Present normal affect and cooperative Meds Home Medications and Allergies Home Medications ?Medication ?Instructions ?Recorded ?Confirmed ?Type glimepiride 4 mg tablet 4 mg PO BID 03/31/18 01/19/25 History clopidogrel 75 mg tablet (Plavix) 75 mg PO DAILY #90 tabs 07/26/19 01/19/25 Rx empagliflozin 25 mg tablet 25 mg PO DAILY 09/21/24 01/19/25 History (Jardiance) apixaban 5 mg tablet (Eliquis) 5 mg PO BID #180 tabs 10/18/24 01/19/25 Rx atorvastatin 40 mg tablet 40 mg PO DAILY 10/26/24 01/19/25 History metoprolol succinate 50 mg 50 mg PO DAILY 10/26/24 01/19/25 History tablet,extended release 24 hr sacubitril 24 mg-valsartan 26 mg 1 tab PO BID 90 days #180 tabs 11/22/24 01/19/25 Rx tablet (Entresto) furosemide 80 mg tablet 80 mg PO DAILY #30 tabs 01/03/25 01/19/25 Rx potassium chloride 20 mEq 40 meq (2 x 20 mEq) PO DAILY 30 01/03/25 01/19/25 Rx tablet,extended days #60 tabs release(part/cryst) (Klor-Con M) metformin 500 mg tablet 1,000 mg PO BID 01/11/25 01/19/25 History nitroglycerin 0.4 mg sublingual 0.4 mg sublingual Q5MINP PRN chest 01/11/25 01/19/25 History tablet pain New Prescriptions to Start Prescriptions: Allergies Allergy/AdvReac Type Severity Reaction Status Date / Time gabapentin AdvReac Mild Dizziness Verified 01/19/25 10:18 Results Laboratory Findings 01/20/25 05:41 01/20/25 05:41 Abnormal lab findings: Abnormal Labs 07/02/25 07/02/25 07/03/25 11:37 16:31 05:40 WBC 12.6 H RBC Hgb Hct [place]w % (Auto) Neut # (Auto) 8.1 H Bartholomew # (Auto) Sodium 130 L Chloride 96 L Carbon Dioxide 19 L Anion Gap 19.9 H BUN 27 H Creatinine 1.30 H Estimated GFR 53 L Glucose 257 H POC Glucose 122 H 54 L Total Protein Albumin 01/20/25 05:41 WBC RBC 4.50 L Hgb 13.4 L D Hct 41.0 L Bartholomew % (Auto) 12.6 H Neut # (Auto) Bartholomew # (Auto) 1.1 H Sodium 132 L Chloride Carbon Dioxide Anion Gap BUN 25 H Creatinine Estimated GFR Glucose 48 L* D POC Glucose Total Protein 5.8 L Albumin 3.1 L D Assessment and Plan *Assessment and plan (1) Pleural effusion: Status: Acute Category: Medical Code(s): J90 - Pleural effusion, not elsewhere classified Plan Mr. Bradshaw is a 79-year-old male last known greater than 15 years ago recently seen in the hospital for right-sided lung mass and pleural effusion status post thoracentesis pulmonary adenocarcinoma discharged home on room air presented complaining of worsening generalized weakness fatigue and decreased appetite. Chest x-ray upon admission showed reaccumulation of pleural fluid. He denies any worsening respiratory distress Pleural fluid cultures from recent admission growing Staph hominis, patient initiated on vancomycin upon admission. Patient CT on his recent admission also concerning for tumor emboli in the right lower lobe pulmonary arterial branches. The plan is to discharge patient under palliative service. Plan - Thoracentesis - Duo nebs QUD PRN -F/U outpatient basis to determine the need for Pleurx catheter placement for palliative purposes - Doxycycline BID x 10 days. F/U repeat pleural fluid culture results ( pleural fluid culture likely contaminant, however given his immunocompromised status plan was made to continue Doxy x 10 days pending repeat pleural fluid culture results)
--- NOTE | 2025-01-20 10:26 | SW/DCPLANNER ---
Addendum entered by Danyelle Fernando 01/20/25 14:27: Patient will discharge home w/ Hospice and family today. Addendum entered by Danyelle Fernando 01/20/25 11:41: Maria Del Carmen ayers/ Hospice will be at bedside to evaluate patient today. Original Note: I spoke w/ patient and his regarding plans once medically stable for discharge. Patient voiced to Greyson ayers/ Dr Bunch that he is interested in Hospice services. Patient's concurs w/ this plan. Patient information will be faxed to [facility] this AM. I will follow up once Maria Del Carmen ayers/ [facility] reviews information. Patient may discharge home later today.
[2025-01-20] MEDS: EMPAGLIFLOZIN 25MG TABLET 25 MG PO (10:40)
[2025-01-20] MEDS: METOPROLOL SUCCINATE XL 50MG TABLET 50 MG PO (10:40)
--- NOTE | 2025-01-20 10:42 | CARE MANAGER ---
Current Medications Acetaminophen (Acetaminophen 325mg Tab) 650 mg PO Q4HP PRN PRN Reason: Fever or Mild Pain (1-3) Stop: 02/18/25 12:55 Hydrocodone Bitart/Acetaminophen (Hydrocodone/Apap 5/325 Mg Tablet) 1 tab PO Q4HP PRN PRN Reason: Mild to Moderate Pain (1-6) Stop: 02/18/25 12:55 Atorvastatin Calcium (Atorvastatin 40mg Tablet) 40 mg PO HS [facility] Stop: 02/18/25 20:59 Last Admin: 01/19/25 20:26 Dose: 40 mg Empagliflozin (Empagliflozin 25mg Tablet) 25 mg PO DAILY [facility] Stop: 02/19/25 08:59 Last Admin: 01/20/25 10:40 Dose: 25 mg Ceftriaxone Sodium 2 gm/ (Sodium Chloride) 100 mls @ 200 mls/hr IV Q24H [facility] Stop: 01/29/25 12:59 Last Admin: 01/19/25 14:17 Dose: 200 mls/hr Vancomycin/PEG/NADA/Lysine/Water (Vancomycin 1.5gm/300ml (Peg) Premix) 1.5 gm in 300 mls @ 150 mls/hr IV Q24H [facility] Stop: 01/29/25 16:29 Last Admin: 01/19/25 17:22 Dose: 150 mls/hr Insulin Human Lispro (Humalog 100 Units/Ml 10ml Vial (Ssi)) 0 unit SUBCUT [facility]; Protocol Stop: 02/18/25 16:29 Last Admin: 01/20/25 06:40 Dose: Not Given Metformin HCl (Metformin 500mg Tablet) 1,000 mg PO BIDWMEAL [facility] Stop: 02/18/25 17:29 Last Admin: 01/20/25 09:23 Dose: Not Given Metoprolol Succinate (Metoprolol Succinate Xl 50mg Tablet) 50 mg PO DAILY [facility] Stop: 02/19/25 08:59 Last Admin: 01/20/25 10:40 Dose: 50 mg Ondansetron HCl (Ondansetron 4mg/2ml Vial) 4 mg IV Q8HP PRN PRN Reason: Nausea Stop: 02/18/25 12:55 Sodium Chloride (Sodium Chloride 0.9% 10ml Flush Syringe) 10 ml IV NEEDED PRN PRN Reason: Maintain IV Site Stop: 02/18/25 14:50
--- NOTE | 2025-01-20 10:43 | CARE MANAGER ---
Laboratory Results - last 24 hr 01/19/25 11:37: WBC 12.6 H, RBC 5.12, Hgb 15.9, Hct 46.9, MCV 91.6, MCH 31.1, MCHC 33.9, RDW 15.5, Plt Count 418, MPV 9.8, Neut % (Auto) 64.3, Lymph % (Auto) 25.4, [place] % (Auto) 7.9, Eos % (Auto) 1.4, Baso % (Auto) 0.4, Neut # (Auto) 8.1 H, Lymph # (Auto) 3.2, [place] # (Auto) 1.0, Eos # (Auto) 0.2, Baso # (Auto) 0.1, Sodium 130 L, Potassium 4.9, Chloride 96 L, Carbon Dioxide 19 L, Anion Gap 19.9 H, BUN 27 H, Creatinine 1.30 H, Estimated Creat Clear 49, Estimated GFR 53 L, Est GFR ( Amer) 64, Glucose 257 H, Calcium 9.5, Magnesium 2.0, Total Bilirubin 1.2, AST 27, ALT 21, Alkaline Phosphatase 81, Total Protein 7.1, Albumin 4.0, Globulin 3.1, Albumin/Globulin Ratio 1.3, Lipase 107 01/19/25 16:31: POC Glucose 122 H 01/19/25 20:07: Lactate 1.8 01/19/25 20:25: POC Glucose 88 01/20/25 05:40: POC Glucose 54 L 01/20/25 05:41: WBC 9.0 D, RBC 4.50 L, Hgb 13.4 L D, Hct 41.0 L, MCV 91.1, MCH 29.8, MCHC 32.7, RDW 15.8, Plt Count 344, MPV 10.1, Neut % (Auto) 62.7, Lymph % (Auto) 21.2, [place] % (Auto) 12.6 H, Eos % (Auto) 2.7, Baso % (Auto) 0.4, Neut # (Auto) 5.6, Lymph # (Auto) 1.9, [place] # (Auto) 1.1 H, Eos # (Auto) 0.2, Baso # (Auto) 0.0, Sodium 132 L, Potassium 4.1, Chloride 101, Carbon Dioxide 23, Anion Gap 12.1, BUN 25 H, Creatinine 1.00 D, Estimated Creat Clear 70, Estimated GFR 72, Est GFR ( Amer) 87 D, Glucose 48 L* D, Calcium 8.7, Magnesium 1.9, Total Bilirubin 0.8, AST 20 D, ALT 13 D, Alkaline Phosphatase 59, Lactate Dehydrogenase 124 L, Total Protein 5.8 L, Albumin 3.1 L D, Globulin 2.7, Albumin/Globulin Ratio 1.1
--- NOTE | 2025-01-20 10:43 | CARE MANAGER ---
Vital Signs Temperature 97.7 F 01/19/25 11:19 Pulse Rate 105 H 01/19/25 11:19 Respiratory Rate 19 01/19/25 11:19 Blood Pressure 94/60 L 01/19/25 11:19 02 Sat by Pulse Oximetry 97 01/19/25 11:19 Oxygen Delivery Method Room Air 01/19/25 11:19 Temperature 97.9 F 01/20/25 08:00 Pulse Rate 16 L 01/20/25 08:00 Respiratory Rate 16 01/20/25 08:00 Blood Pressure 121/66 01/20/25 08:00 02 Sat by Pulse Oximetry 95 01/20/25 08:00 Oxygen Delivery Method Room Air 01/20/25 09:57
[2025-01-20 10:50] LABS: POC Glucose,Bedside 140 (70-110)
[2025-01-20 11:56] VITALS: BMI 26.8
[2025-01-20 12:00] VITALS: BP 125/74; PULSE 89; RESP 16; TEMP 36.8; O2SAT 98
--- NOTE | 2025-01-20 13:14 | XR_ITS ---
PROCEDURE INFORMATION: Exam: XR Chest Exam date and time: 01/20/2025 1:42 PM Age: 79 years old Clinical indication: Condition or disease; Other: Post thora; Additional info: Post thora procedure TECHNIQUE: Imaging protocol: Radiologic exam of the chest. Views: 1 view. COMPARISON: CR (CHEST, CXR AP LANDSCAPE) 01/19/2025 11:40 AM FINDINGS: Tubes, catheters and devices: There is a wireless loop recorder projected in the left chest wall. Lungs: Hazy opacities in the right lower lobe favored atelectasis. Pleural spaces: Decrease in size of right pleural effusion. Suspected right pneumothorax with approximate 1.3 cm of visceral pleural separation. Heart/Mediastinum: Postoperative changes from prior coronary artery bypass graft. Bones/joints: Sternotomy wires are intact. IMPRESSION: 1. Decrease in size of right pleural effusion. 2. Suspected right pneumothorax with approximate 1.3 cm of visceral pleural separation.
--- NOTE | 2025-01-20 13:34 | P.DS_ITS ---
<Statement entered by Eusebio Bunch MD - 01/20/25 15:51> Rounded on patient after nurse practitioner. Personally examined and interviewed patient. Agree with exam findings and care plan as documented. General Admission date:: 01/19/25 HPI HPI HPI: Carlos Bradshaw is an 79-year-old male with a complex cardiac history including CABG, STEMI, A-fib, HFrEF as well as type 2 diabetes, GERD who presents to the ED with progressive weakness, low appetite and intermittent shortness of breath. Mr. Bradshaw was at his appointment with Dr. Walker, oncology, to discuss recent diagnosis and increased fatigue. Dr. Walker recommended ER evaluation due to hypotension noted in the office, presyncopal episode, and severe fatigue. He was recently admitted to the hospital for a similar episode, and found to have a right-sided pleural effusion that required thoracentesis and drain placement. 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 He was hospitalized for multiple days and discharged home with outpatient oncology follow-up. Patient is a former smoker 40 years ago, no personal or known family history of cancer. Workup in the ED significant for chest x-ray showing recurrent massive right pleural effusion, right lung collapse; this was previously noted and treated at prior admission. On my evaluation of patient, he was lying in bed comfortably without acute distress. Hospital Course Hospital Course Hospital Course: Mr. Bradshaw was admitted from the emergency room for evaluation of a large right pleural effusion and collapsed lung. Pulmonology was consulted and decision was made for a therapeutic thoracentesis. After discussion with patient, spouse, and social work decision was made for palliative hospice at home. Hospice visited and evaluated patient today, and plans were made for follow-up visit at the patient's home on Friday. Patient had thoracentesis today with Dr. Liam patel. He tolerated the procedure well without any complications. #Confirmed malignancy #Former smoker #SIRS ?On admission leukocytosis was noted of 12.6. Repeat today is 9.0. Patient will be discharged with Doxy 100 mg twice daily x 10 days empirically out of precaution for infectious etiology. ?Patient will follow-up with pulmonology outpatient to discuss the need for a Pleurx catheter placement for palliative purposes. Patient is asymptomatic at this time. ?Patient appears to be at baseline, no shortness of breath, no pain, alert and oriented. #History of CABG, STEMI #A-fib #HFrEF #Severe aortic stenosis ? Patient to continue normal home medications at home. Patient was found to be in A-fib with rapid ventricular rate on admission, patient's heart rate has stabilized currently 89. ? Continue home metoprolol succinate 50 mg, hold Entresto due to hypotension. #Type 2 diabetes ?Continue home metformin, Jardiance. ?Stop glimepiride due to possibility of hypoglycemia. #GERD ? Continue home PPI. #Dementia ? Patient at this time seems alert and oriented, endorses memory loss. Continue supportive therapy. #Severe protein calorie malnutrition ?Discussed with patient intake of high-protein foods, supplements, drinks. Total time spent on discharge 36 minutes in counseling, documentation, chart review, and direct care with patient. Exam Data for Last 24 hours Vital signs and Labs for Last 24 Hours: Temp Pulse Resp BP Pulse Ox O2 Del Method 97.9 F 16 L 16 121/66 95 Room Air 01/20/25 08:00 01/20/25 08:00 01/20/25 08:00 01/20/25 08:00 01/20/25 08:00 01/20/25 12:48 Laboratory Results - last 24 hr 01/19/25 16:31: POC Glucose 122 H 01/19/25 20:07: Lactate 1.8 01/19/25 20:25: POC Glucose 88 01/20/25 05:40: POC Glucose 54 L 01/20/25 05:41: WBC 9.0 D, RBC 4.50 L, Hgb 13.4 L D, Hct 41.0 L, MCV 91.1, MCH 29.8, MCHC 32.7, RDW 15.8, Plt Count 344, MPV 10.1, Neut % (Auto) 62.7, Lymph % (Auto) 21.2, Hendry % (Auto) 12.6 H, Eos % (Auto) 2.7, Baso % (Auto) 0.4, Neut # (Auto) 5.6, Lymph # (Auto) 1.9, Hendry # (Auto) 1.1 H, Eos # (Auto) 0.2, Baso # (Auto) 0.0, Sodium 132 L, Potassium 4.1, Chloride 101, Carbon Dioxide 23, Anion Gap 12.1, BUN 25 H, Creatinine 1.00 D, Estimated Creat Clear 70, Estimated GFR 72, Est GFR ( Amer) 87 D, Glucose 48 L* D, Calcium 8.7, Magnesium 1.9, Total Bilirubin 0.8, AST 20 D, ALT 13 D, Alkaline Phosphatase 59, Lactate Dehydrogenase 124 L, Total Protein 5.8 L, Albumin 3.1 L D, Globulin 2.7, Albumin/Globulin Ratio 1.1 01/20/25 10:39: POC Glucose 140 H I & O for Last 24 hours: Intake & Output 01/17/25 01/18/25 01/19/25 01/20/25 23:59 23:59 23:59 23:59 Output Total 0 / 0 0 / 0 Balance 0 / 0 0 / 0 Weight 77.111 kg 85.02 kg Constitutional Constitutional: no acute distress, average body habitus and cooperative *Routine HEENT Exam Head: Present normocephalic Eye: Present EOMI and PERRL ENT: Present mucous membranes moist *Routine Neck Exam Neck: Present supple; Absent lymphadenopathy *Routine Respiratory Exam Respiratory: Absent accessory muscle use, rhonchi, stridor or wheezes Comments: Decreased breath sounds right lower lobe, crackles right upper lobe *Routine Cardiovascular Exam Cardiovascular: Present RRR *Routine Abdominal Exam Abdominal: Present soft and normoactive bowel sounds; Absent tenderness *Routine Rectal Exam Patient deferred: visual exam *Routine Exam Patient deferred: penile exam *Routine Extremities Exam Extremities: Present full ROM; Absent cyanosis, clubbing or edema *Routine Skin Exam Skin: Present intact, pallor and warm; Absent rash *Routine Neurological Exam Neurological: Present alert, oriented X3 and moving all extremities; Absent altered mental status Results Data Completed and Pending Labs on day of discharge: Labs from last 24 hours 01/20/25 01/20/25 01/20/25 10:39 05:41 05:40 WBC 9.0 D RBC 4.50 L Hgb 13.4 L D Hct 41.0 L MCV 91.1 MCH 29.8 MCHC 32.7 RDW 15.8 Plt Count 344 MPV 10.1 Neut % (Auto) 62.7 Lymph % (Auto) 21.2 Hendry % (Auto) 12.6 H Eos % (Auto) 2.7 Baso % (Auto) 0.4 Neut # (Auto) 5.6 Lymph # (Auto) 1.9 Hendry # (Auto) 1.1 H Eos # (Auto) 0.2 Baso # (Auto) 0.0 Sodium 132 L Potassium 4.1 Chloride 101 Carbon Dioxide 23 Anion Gap 12.1 BUN 25 H Creatinine 1.00 D Estimated Creat Clear 70 Estimated GFR 72 Est GFR ( Amer) 87 D Glucose 48 L* D POC Glucose 140 H 54 L Lactate Calcium 8.7 Magnesium 1.9 Total Bilirubin 0.8 AST 20 D ALT 13 D Alkaline Phosphatase 59 Lactate Dehydrogenase 124 L Total Protein 5.8 L Albumin 3.1 L D Globulin 2.7 Albumin/Globulin Ratio 1.1 01/19/25 01/19/25 01/19/25 20:25 20:07 16:31 WBC RBC Hgb Hct MCV MCH MCHC RDW Plt Count MPV Neut % (Auto) Lymph % (Auto) Hendry % (Auto) Eos % (Auto) Baso % (Auto) Neut # (Auto) Lymph # (Auto) Hendry # (Auto) Eos # (Auto) Baso # (Auto) Sodium Potassium Chloride Carbon Dioxide Anion Gap BUN Creatinine Estimated Creat Clear Estimated GFR Est GFR ( Amer) Glucose POC Glucose 88 122 H Lactate 1.8 Calcium Magnesium Total Bilirubin AST ALT Alkaline Phosphatase Lactate Dehydrogenase Total Protein Albumin Globulin Albumin/Globulin Ratio DS: Diagnosis Discharge Diagnosis (1) Failure to thrive: Status: Acute (2) Pleural effusion: Status: Acute Code(s): J90 - Pleural effusion, not elsewhere classified (3) Cancer of right lung: Status: Acute Code(s): C34.91 - Malignant neoplasm of unspecified part of right bronchus or lung (4) HFrEF (heart failure with reduced ejection fraction): Status: Acute Code(s): I50.20 - Unspecified systolic (congestive) heart failure (5) S/P CABG x 3: Status: Acute Code(s): Z95.1 - Presence of aortocoronary bypass graft (6) Severe aortic stenosis: Status: Acute Code(s): I35.0 - Nonrheumatic aortic (valve) stenosis (7) Diabetes mellitus: Status: Acute Code(s): E11.9 - Type 2 diabetes mellitus without complications Qualifiers: Diabetes mellitus complication detail: with other circulatory complications Diabetes mellitus complication status: with circulatory complication Diabetes mellitus detention insulin use: without detention use Diabetes mellitus type: type 2 Qualified Code(s): E11.59 - Type 2 diabetes mellitus with other circulatory complications (8) Hypertension: Status: Acute Code(s): I10 - Essential (primary) hypertension Qualifiers: Hypertension type: essential hypertension Qualified Code(s): I10 - Essential (primary) hypertension (9) Afib: Status: Acute Code(s): I48.91 - Unspecified atrial fibrillation Qualifiers: Atrial fibrillation type: unspecified Qualified Code(s): I48.91 - Unspecified atrial fibrillation (10) Severe protein-calorie malnutrition: Status: Acute Code(s): E43 - Unspecified severe protein-calorie malnutrition Meds Home Medications and Allergies Home Medications ?Medication ?Instructions ?Recorded ?Confirmed ?Type clopidogrel 75 mg tablet (Plavix) 75 mg PO DAILY #90 t abs 07/26/19 01/19/25 Rx empagliflozin 25 mg tablet 25 mg PO DAILY 09/21/2409/14 History (Jardiance) apixaban 5 mg tablet (Eliquis) 5 mg PO BID #180 tabs 0 10/18/24 01/19/25 Rx atorvastatin 40 mg tablet 40 mg PO DAILY 10/26/2409/14 History metoprolol succinate 50 mg 50 mg PO DAILY 10/26/2409/14 History tablet,extended release 24 hr furosemide 80 mg tablet 80 mg PO DAILY #30 tabs 12/1901/19/25 Rx potassium chloride 20 mEq 40 meq (2 x 20 mEq) PO DAILY 30 01/03/25 01/19/25 Rx tablet,extended days #60 tabs release(part/cryst) (Klor-Con M) metformin 500 mg tablet 1,000 mg PO BID 01/11/2509/14 History nitroglycerin 0.4 mg sublingual 0.4 mg sublingual Q5MI [employer] PRN chest 01/11/25 01/19/25 History tablet pain doxycycline hyclate 100 mg capsule 100 mg PO BID #20 c aps 01/20/25 Rx New Prescriptions to Start Prescriptions: Melissa Elaine Allergies Allergy/AdvReac Type Severity Reaction Status Date / Time gabapentin AdvReac Mild Dizziness Verified 01/19/25 10:18 Discharge Plan Disposition Patient Disposition: Hospice - Home Condition: Fair Discharge Order Discharge Orders: Discharge Order (Routine); Ordered 07/03/25 Ordered By: Melissa Hdz Follow up Plan Follow up with: Martín Hoover MD [Physician, Pulmonology] - 02/09/25 1:40 pm Malissa Kilgore APRN [Primary Care Provider, Medical] - Enter time for follow up Referral Note: Please call office for follow up appointment Prescriptions/Medication Reconciliation: New doxycycline hyclate 100 mg capsule 100 mg PO BID Qty: 20 0RF Continued Jardiance 25 mg tablet 25 mg PO DAILY metoprolol succinate 50 mg tablet extended release 24 hr 50 mg PO DAILY atorvastatin 40 mg tablet 40 mg PO DAILY clopidogrel [Plavix] 75 mg tablet 75 mg PO DAILY Qty: 90 2RF Eliquis 5 mg tablet 5 mg PO BID Qty: 180 3RF potassium chloride [Klor-Con M20] 20 mEq tablet,ER particles/crystals 40 meq PO DAILY 30 Days Qty: 60 2RF furosemide 80 mg tablet 80 mg PO DAILY Qty: 30 2RF metformin 500 mg tablet 1,000 mg PO BID nitroglycerin 0.4 mg tablet, sublingual 0.4 mg SUBLINGUAL Q5MINP PRN (Reason: chest pain) Rx Instructions: take one tab sublingual for chest pain, may repeat every 5 minutes, max three tabs Discontinued Entresto 24-26 mg tablet 1 tab PO BID 90 Days Qty: 180 2RF glimepiride 4 MG tablet 4 mg PO BID Problem Reconciliation Problems Reviewed?: Yes Patient Discharge Instructions ACTIVITY: Continue current activity DIET: continue same diet Patient Instructions: Sepsis, DI for Thoracentesis, DI for Surgical Site Infection, DI for Hypotension, DI for Pleural Effusion Print Language: Irish Providers Primary Care Provider: Malissa Kilgore Admit Provider: Eusebio Bunch Attending Provider: Eusebio Bunch
--- NOTE | 2025-01-20 13:38 | P.PCN_ITS ---
[facility] Procedure Note Date: 01/20/25 Time: 13:38 Procedure Note:: Procedure: Right Thoracentesis Indication for procedure: Pleural Effusion, Lung Cancer A time out was performed, and the chest x-ray was reviewed, the appropriate side was confirmed and marked. My hands were washed immediately prior to the procedure. I wore a surgical cap, mask with protective eyewear, sterile gown, and sterile gloves throughout the procedure. The patient was prepped and draped in a sterile manner using chlorhexidine scrub after the appropriate level was percussed and confirmed by ultrasound. 1% lidocaine was used to anesthetize the skin, ?subcutaneous tissue, superior aspect of the rib periosteum and parietal pleura.? A finder needle was then introduced at the seventh intercoastal space posteriorly?to locate the pleural fluid; blood tinged fluid was aspirated. A 10- blade scalpel was used to jack the skin at the insertion site. The Thoracentesis needle was then introduced through the skin incision into the pleural space using negative aspiration pressure to confirm appropriate positioning of the needle. The thoracentesis catheter was then threaded without difficulty.? 3360 ml of blood tinged ?fluid was removed without difficulty. The catheter was then removed. No immediate complications were noted during the procedure. A post-procedure chest X-ray is pending at the time of this note. The fluid will be sent for routine pleural studies, cultures. Not sent for cytopathology.? Patient tolerated the procedure well? Estimated blood loss is 2cc.
[2025-01-20 13:50] LABS: Appearance,Body Fld. Bloody; Source, Body Fld. Pleural Fluid
[2025-01-20 13:51] LABS: RBC,Body Fluid 35000 cells/uL (< 10 X 10^3); TNC,Body Fluid 723 cells/uL (< 1000); Volume,Body Fld. 3360 mL
--- NOTE | 2025-01-20 14:16 | XR_ITS ---
PROCEDURE INFORMATION: Exam: XR Chest Exam date and time: 01/20/2025 2:20 PM Age: 79 years old Clinical indication: Device placement; Other: Post thora; Additional info: Two films - inspiratory and expiratory. Post thora TECHNIQUE: Imaging protocol: Radiologic exam of the chest. Views: 1 view. COMPARISON: CR XR CHEST PORTABLE 01/20/2025 1:42 PM FINDINGS: Tubes, catheters and devices: There is a wireless loop recorder projected in the left chest wall. Lungs: Hazy opacities in the right lower lobe favored atelectasis. Pleural spaces: Previously seen potential right pneumothorax has resolved therefore this is attributable to a skin fold. There is redemonstration of small right pleural effusion. Heart/Mediastinum: Postoperative changes from prior coronary artery bypass graft. Bones/joints: Sternotomy wires are intact. IMPRESSION: 1. Previously seen potential right pneumothorax has resolved, therefore this is attributable to a skin fold/structure overlap. 2. There is redemonstration of small right pleural effusion.
[2025-01-20] MEDS: ACETAMINOPHEN 325MG TAB 650 MG PO (15:16)
[2025-01-20 15:22] LABS: Mononuclear WBCs,Body Fluid 93 %; Polynuclear WBC,Body Fluid 7 %
[2025-01-24 15:31] LABS: Albumin, Body Fluid 2.4 g/dL (Not Estab.); Glucose, Body Fluid 87 mg/dL (.); LD, Body Fluid 186 IU/L (.)
== END 2025-01-20 15:54 | disposition hospice, home (50) ==
LOC: ER 11:15 → ICU 14:25 → 2ND 16:06
PROVIDERS: Internal Medicine Pulmonary Disease; Nurse Practitioner; Admitting Provider Internal Medicine Adolescent Medicine; Emergency Provider Emergency Medicine; PCP Nurse Practitioner Family; Visit Provider Internal Medicine Adolescent Medicine
DX: J90 Pleural effusion, not elsewhere classified (principal); C34.91 Malignant neoplasm of unspecified part of right bronchus or lung; I11.0 Hypertensive heart disease with heart failure; I50.20 Unspecified systolic (congestive) heart failure; I35.0 Nonrheumatic aortic (valve) stenosis; E11.59 Type 2 diabetes mellitus with other circulatory complications; Z79.84 Long term (current) use of oral hypoglycemic drugs; I48.91 Unspecified atrial fibrillation; E43 Unspecified severe protein-calorie malnutrition; R62.7 Adult failure to thrive; Z68.26 Body mass index [BMI] 26.0-26.9, adult; I25.2 Old myocardial infarction; K21.9 Gastro-esophageal reflux disease without esophagitis; R65.10 Systemic inflammatory response syndrome (SIRS) of non-infectious origin without acute organ dysfunction; F03.90 Unspecified dementia, unspecified severity, without behavioral disturbance, psychotic disturbance, mood disturbance, and anxiety; Z95.1 Presence of aortocoronary bypass graft; Z86.74 Personal history of sudden cardiac arrest; Z86.711 Personal history of pulmonary embolism; Z79.02 Long term (current) use of antithrombotics/antiplatelets; Z87.891 Personal history of nicotine dependence; Z79.01 Long term (current) use of anticoagulants; Z79.899 Other long term (current) drug therapy; Z80.8 Family history of malignant neoplasm of other organs or systems; Z82.49 Family history of ischemic heart disease and other diseases of the circulatory system; Z95.5 Presence of coronary angioplasty implant and graft
CPT/HCPCS: 96361; 96365; 96375; 32555; 36415; 71045; 80053; 82042; 82945; 82962; 83605; 83615; 83690; 83735; 84157; 85025; 87040; 87070; 87205; 89051; 93005; G0378; J0696; J3375; J7030; J7120